=== PATIENT | female | born 1940 | race Caucasian/White ===

== ENCOUNTER 2022-08-11 17:46 | Outpatient (CLI) | payer SELFPAY ==
--- OUTSIDE RECORDS SUMMARY | 2022-08-11 09:30 | XMS_ITS | Clinical Summary ---
:1940 Author Organization [facility] [place] [address] Care Team Providers Name Role Phone Jackelin Morales Unavailable Leda Anderson MD Primary Care Provider [phone] Allergies Active Allergy Reactions Severity Noted Date Comments Aspirin Anaphylaxis 11/17/2006 Age 27, sounds like she got flushed , red rash, difficult y breathing Azithromycin Nausea And Vomiting, 02/17/2011 Dizziness Clindamycin Nausea Only, Dizziness 02/17/2011 Fd And C No.5 11/17/2006 Blue food dye (Tartrazine) Iodinated Contrast Other - Describe In 03/12/2009 Un known. Media Comment Field Medications Medication Sig Dispensed Refills Start Date End Date Status Calcium Carbonate 1,000 Take 1 tablet by 0 1 Active mg tablet mouth once daily. simvastatin (ZOCOR) 20 Take 20 mg by 3 05/05/2018 Active mg tablet mouth at bedtime. cholecalciferol (VITAMIN Take 1 capsule 0 08/19/2010 Active D3) 5,000 unit capsule by mouth. FLAXSEED OIL ORAL Take by mouth. 0 06/18/2014 Active calcium/magnesium/zinc Take 1 tablet by 0 07/25/2014 Active ([id number] mouth. ) 333-133-5 mg tablet irbesartan (AVAPRO) 150 Take 1 Tablet 0 05/27/2022 Active mg tablet (150 mg) by mouth once daily. if BP is over 140. 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 50mg-850mg take twice daily. clopidogreL (Plavix) 75 Take 1 Tablet 0 05/27/2022 Active mg tablet (75 mg) by mouth once daily. metFORMIN (GLUCOPHAGE) Take 500 mg by 0 06/17/2022 Active 500 mg tablet mouth two times daily with meals. Active Problems Problem Noted Date Adenomatous polyp of sigmoid colon 07/23/2020 Overview: Colonoscopy 06/2020 large polyp, repeat in 6 months PVC (premature ventricular contraction) 03/11/2017 Impaired fasting glucose 11/23/2012 ACP (advance care planning) 10/08/2011 Overview: Formatting of this note is dif ferent from the original. Patient has identified Health Care Agent (s): Yes Add Health Care Agents: Yes Health Care Agent(s): Primary Health Care Agent: Jaison turner Relationship: Son Secondary Health Care Agent:Shea Rubio kathy Relationship: daughter (c) Conservator: Relationship: Phone: Guardian: Relationship: Phone: Patient has Advance Care Plan Documents (Health Care Directive, POLST): Yes Advance Care Plan Documents: Health Care Directive Patient has identified Specific Treatmen t Preferences: No Specific limits to treatment preferences NOT identified: ASSUME FULL TREATMENT. Last Assessment & Plan: Advance Care Planning: Basic Interview S ession Advance Care Planning discussion complet ed with [employer] Topher Del Castillo and her Health Care Agent and son, Jaison Del Castillo on 10/08/2011 at [facility]. Patient and family provided with: Janes johnson Care Planning Discussion Guide, a second copy of a Health Care Directive and booklet, Hard Choices for [place] People, for their review. Goals and Values: Patient/family identified factors that m ay influence treatment preferences: ?? Personal values and goals: Very stron g bahai beliefs and need to allow God's will,God gives me strength and I am very blessed. ?? Quality of life: Has had two separate bouts of serious illness: one with breast cancer in 2006 and lymphoma in 2009, received treatments, recovered quickly and returned to previous level of function. Did state would not want to have prolon ged medical interventions if not able to recover. ?? Worries and fears about health care; Does not believe in documenting specific wishes, can't preplan God's plan. She states she does discuss her wishes with her family as needs arises. Treatment Choices: If Theandrew were suddenly injured and h er chances of recovery were 5 out of 100, she WOULD NOT want ongoing life-prolonging treatments such as a ventilator/respirator, feeding tube, etc., RETIREMENT. Was unable to define a timeline for a li mited trial, needs to discuss with her family further. Reviewed CPR fact sheet with [employer]. If she had a sudden event that caused her heart and breathing to stop she was UNDECIDED if she would want CPR attempted. Discussed importance of identifying what end of life care she would want if unable to communicate her wishes, because aggressive medical interventions would be implemented, if her wishes were not documented and health care agents not available. Documents Completed During Advance Care Planning Session: Health Care Agents identified. Completed the Health Care Directive, without any specific treatments preferences except to identify her health care agents. Recommendations/Plan: Theandrew was encouraged to continue adv ance care planning discussions, complete a health care directive and schedule a return appointment with plexiglas former to review her advance care plan. Theandrew and her health care agent to r dbw Health Care Directive with her provider at the next office visit. Interviewer: Adri Sepulveda, RN 012 Vitamin D deficiency 03/15/2009 Exostosis of unspecified site 02/01/2007 Personal history of malignant neoplasm of breast 11/17 Overview: right breast cancer ductal in situ . Pt had lumpectomy Osteoporosis, unspecified 11/17/2006 Premature menopause 11/17/2006 Calculus of kidney 11/17/2006 Overview: 1993 Follicular lymphoma Overview: skin biopsy Encounters Date Type Specialty Care Team Description 07/03/2022 Office Visit Ronald Nichols CV Lisa ctrophysiology New (Ref MD from [facility] (P VC's). Pt states no curre nt symptoms. Questions rhys rning stroke in February) 07/03/2022 Travel 05/27/2022 Office Visit Byron Short Other (O ffice Visit[facility]P- Wilma Anderson MD) 05/27/2022 Travel 05/12/2022 Telephone Ronald Nichols ret'd call from kim JOHN from Last 3 Months Immunizations Name Administration Dates Next Due AMB Influenza, IIV3 (Age >=3 06/15/2013, 07/06/2012, 008 years)(Flu Clinic Only) Influenza RIV4 (Age 18+ Years) 08/02/2019 PRESERV FREE Influenza, High-dose Inactivated 06/22/2018, 06/25/2017, 07/2016, 06/07/2015 Influenza, High-dose Quadrivalent 07/29/2021 Inactivated Influenza, IIV3 (Age >=3 years) 06/05/2011, 07/09/2010, 05/28, 07/21/2007, 08/11/2006 Influenza, ccIIV3 (Age >=18 Years) 07/05/2014 Pneumococcal Poly,23-Valent 01/25/2007 (Pneumovax) Pneumococcal conj 13-Valent (Prevnar 03/09/2016 13) Tdap 03/09/2016, 03/04/2006 Family History Medical History Relation Name Comments Heart Disease Brother 5 Hypertension Brother 6 Stroke Brother 7 Cancer Father lymphoma? Cancer-breast Maternal Aunt Hypertension Mother Relation Name Status Comments Brother 1 [place] Brother 2 stroke Brother 3 Alive Brother 4 Alive Brother 5 Brother 6 Brother 7 Father Maternal Aunt Mother Sister 1 [place] Sister 2 Alive Sister 3 Alive Sister 4 Alive Social History Tobacco Use Types Packs/Day Years Used Date Never Smoker Smokeless Tobacco: Never Used Tobacco Cessation: Counseling Given: Yes Alcohol Use Standard Drinks/Week Comments Not Currently 0 (1 standard drink = 0.6 oz pure alcoho l) Sex Assigned at Date Recorded Not on file Obstetrics History Last Filed Vital Signs Vital Sign Reading Time Taken Comments Blood Pressure 122/70 07/03/2022 9:07 AM CDT Pulse 38 07/03/2022 9:07 AM CDT Temperature 36.9 ??C (98.4 ??F) 07/18/2018 3:30 PM CDT Respiratory Rate 16 06/21/2020 11:53 AM CDT Oxygen Saturation 98% 07/03/2022 9:07 AM CDT Inhaled Oxygen Concentration - - Weight 62.4 kg (137 lb 8 oz) 07/03/2022 9:07 AM CDT Height 152 cm (4' 11.84) 07/03/2022 9:07 AM CDT Body Mass Index 26.99 07/03/2022 9:07 AM CDT Plan of Treatment Health Maintenance Due Date Last Done Comments COVID-19 vaccine series (#1) 05/29/1941 Depression screening for age 12+ 1952 Zoster (shingles) series for age 0311/27/1959 50+ (1 of 2) Medicare Wellness for age 65+ 06/26/2014 06/26/2013, 2011, 02/17/2011 Influenza for age 65+ 05/28/2022 07/29/2021, 08/02/2019, 06/22/2018, Additional history exists BMI (ht and wt on same day) for 07/03/2023 07/03/2022, 08/09/2021, age 18+ 02/15/2019, Additional history exists Tetanus booster 03/09/2026 03/09/2016, 03/04/2006 DEXA/DXA scan for age 65+ Completed 06/29/2013, 03/01/2012 , 02/27/2011, Additional history exists Pneumococcal series for age 65+ Completed 03/09/2016, 09/2006 Tdap Completed 03/09/2016, 03/04/2006 Procedures Procedure Name Priority Date/Time Associated Diagnosis Comme nts EKG 12 LEAD Routine 05/27/2022 11:01 AM PVC (premature Result s for this CDT ventricular procedure are i n contraction) the results section. from Last 3 Months Results EKG 12 LEAD (05/27/2022 11:01 AM CDT) Component Value Ref Range Test Analysis Performed Pathologis t Method Time At Signature Interpretation Junctional rhythm with frequent Premature ventri cular complexes Abnormal ECG Ventricular Rate 64 BPM Atrial Rate 35 BPM P-R Interval 136 ms QRS Duration 102 ms QT 406 ms QTc 418 ms P [place] 78 degrees R [place] 5 degrees T [place] 20 degrees Specimen Anatomical Collection Method Collection Time Receive d Time (Source) Location / / Volume Laterality 05/27/2022 11:05/27/2022 8:16 AM CDT PM CDT Byron Short MD EKG ORD from Last 3 Months Insurance Payer Benefit Plan / Subscriber ID Effective Dates Phone Addre ss Type Group MEDICARE PART B MEDICARE PART B [id number] 2005-Presen ATTN: CLAIMS - HB USE ONLY HB ONLY t [address] [place] [address] [place] BLUE [place]OSS [id number] 2016-Presen [address] [address] [place] [id number] [place]UE [place]OSS BLUE CROSS [id number] 2016-[place] [address] [address] [place] [id number] [phone] (Work) Advance Directives Documents on File Type Date Recorded Patient Epic Beacon Analyst Explanati on Healthcare Directive 12/03/2011 ACP Care Teams Mat Linker Relationship Specialty Start Date End Date Leda Anderson MD PCP - General Family Practice 06/13/201999 [place] [address] Jackelin Morales Internal Medicine 03/01/12 [address] [place] [address]
--- OUTSIDE RECORDS SUMMARY | 2022-08-11 09:31 | XMS_ITS | Encounter Summary ---
:1940 Demographics Address [address] [place] [address] Mobile Phone Home Phone Preferred Language ENG Marital Status Christianity Affiliation Unknown Race White Ethnic Group Not or Author Organization [facility] Address [address] [place] [address] Care Team Providers Name Role Phone Unavailable Primary Care Provider Unavailable Reason for Visit Reason Comments Results I called and left a message for her son about the MRI results. Encounter Details Date Type Department Care Team Description 07/30/2022 Clinical Communication Department of Sleep Sae Barron (I called Medicine in [place], and left a mess karina Michael, M.P.H. for her son about [place] [address] the MRI results.) [address] [place] [id number] Social History Tobacco Use Types Packs/Day Years Used Date Smoking Tobacco: Never Smokeless Tobacco: Never Sex Assigned at Date Recorded Not on file documented as of this encounter Plan of Treatment Upcoming Encounters Date Type Specialty Care Team Description 09/16/2022 Office Visit Neurology Sae Barron M.D., M.P.H. [address] [place], [place] [phone] (Wo rk) documented as of this encounter Visit Diagnoses Not on filedocumented in this encounter
--- OUTSIDE RECORDS SUMMARY | 2022-08-11 09:31 | XMS_ITS | Encounter Summary ---
:1940 Demographics Address [address] [place] [address] Mobile Phone Home Phone Preferred Language ENG Marital Status Moravian Affiliation Unknown Race White Ethnic Group Not or Author Organization [facility] Address [address] [place] [address] Care Team Providers Name Role Phone Unavailable Primary Care Provider Unavailable Encounter Details Date Type Department Care Team Description 03/23/2019 Ancillary Procedure Department of Dermatology Social History Tobacco Use Types Packs/Day Years Used Date Smoking Tobacco: Never Sex Assigned at Date Recorded Not on file documented as of this encounter Plan of Treatment Upcoming Encounters Date Type Specialty Care Team Description 09/16/2022 Office Visit Neurology Sae Barron M.D., M.P.H. [address] [place] [phone] (Wo rk) documented as of this encounter Procedures Procedure Name Priority Date/Time Associated Comments Diagnosis DERMATOLOGY IMAGE Routine 03/23/2019 12:00 Result s for this EXAM PM CDT procedure are i n the results section. documented in this encounter Results chest, left upper 203-Dermatology Image Exam (03/23/2019 12:00 PM CDT) Specimen (Source) Anatomical Collection Method Collection Time Re ceived Time Location / / Volume Laterality 03/23/2019 12:00 PM CDT Narrative [facility] - 03/23/2019 3:20 PM CDT This order has been created and auto-finalized to support the import of images acquired without order. The clini khanh documentation to support these images can be found on the encounter rosa maria t produced images. Provider Not In System IMG NON RAD IMAGING PROCEDUR ES Performing Organization Address City/State/ZIP Code Phon e Number [facility] NA documented in this encounter Visit Diagnoses Not on filedocumented in this encounter
--- OUTSIDE RECORDS SUMMARY | 2022-08-11 09:31 | XMS_ITS | Encounter Summary ---
:1940 Demographics Address [address] [place] [address] Mobile Phone Home Phone Preferred Language ENG Marital Status Mormon Affiliation Unknown Race White Ethnic Group Not or Author Organization [facility] Address [address] [place] [address] Care Team Providers Name Role Phone Unavailable Primary Care Provider Unavailable Encounter Details Date Type Department Care Team Description 07/08/2018 Abstract DATA ABSTRACTION Provider, Historical Social History Tobacco Use Types Packs/Day Years Used Date Smoking Tobacco: Never Sex Assigned at Date Recorded Not on file documented as of this encounter Plan of Treatment Upcoming Encounters Date Type Specialty Care Team Description 09/16/2022 Office Visit Neurology Sae Barron M.D., M.P.H. [address] [phone] (Wo rk) documented as of this encounter Visit Diagnoses Not on filedocumented in this encounter
--- OUTSIDE RECORDS SUMMARY | 2022-08-11 09:31 | XMS_ITS | Encounter Summary ---
:1940 Demographics Address [address] [place] [address] Mobile Phone Home Phone Preferred Language ENG Marital Status Synagogue Affiliation Unknown Race White Ethnic Group Not or Author Organization [facility] Address [address] [place] [address] Care Team Providers Name Role Phone Unavailable Primary Care Provider Unavailable Reason for Visit Appointment Request (Routine) - Closed Specialty Diagnoses / Procedures Referred By Contact Refer red To Contact Dermatology Referral ID Status Reason Start Date Expiration Date Visits Requ ested Visits Authorized [id number] Closed 02/21/2019 02/21/2020 1 Encounter Details Date Type Department Care Team Description 03/23/2019 Comprehensive Visit Department of Robin Murillo Follicle Dermatology in Rodriguez Mallory M.D., [place], [place] Ph.D. Unspecified Site [address] [place] [address] ([facility]) (Primary Dx) [place] [address] Social History Tobacco Use Types Packs/Day Years Used Date Smoking Tobacco: Never Sex Assigned at Date Recorded Not on file documented as of this encounter Consult Notes Rodriguez Murillo M.D., Ph.D. - 03/23/2019 8:40 AM CDT Patient is a delightful 78-year-old woman initially from [place] who in 1998 has had breast cancer which was treated with lumpectomy followed by mastectomy and radiation as well as chemotherapy. Dr. 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 I do not see that shehas seen Hematology nor has she had a PET scan. Examination of her skin today shows a large cauliflower like lesion and a blue nevus. I am concernedthat this large hemangioma could be a hemorrhagic lymphoma. This lesion was excised today. Blue nevus on the left shoulder was shave biopsied as well. After the pathology is back depending on the biopsy and PET scan I will ask the backup operator to weigh on this by An econsult. I informed the patient that I will do that and I will communicate with her hopefully before she leaves to [facility] on the 05 of April documented in this encounter Plan of Treatment Upcoming Encounters Date Type Specialty Care Team Description 09/16/2022 Office Visit Neurology Sae Barron M.D., M.P.H. [address] [place], [place] [phone] (Wo rk) Scheduled Orders Name Type Priority Associated Diagnoses Order S chedule JOSÉ LUIS Excision 1-2 Dermatology Routine Cutaneous Follicle Expec maris: 03/23/2019 sites Center Lymphoma (Approximate ), Unspecified Site (HCC) Expir es: 03/23/2022 documented as of this encounter Results PET CT Skull to Thigh FDG (03/23/2019 2:09 PM CDT) Anatomical Region Laterality Modality Body, Nuclear Medicine PET RST LOS, PET N/A Positron Emission Tomography (PET) ARZ LOS, Nuclear Medicine PET FLA LOS Specimen (Source) Anatomical Collection Method Collection Time Re ceived Time Location / / Volume Laterality 03/23/2019 4:07 PM CDT Impressions 03/23/2019 4:19 PM CDT No definite evidence of relapsed lymphoma. Narrative 03/23/2019 4:19 PM CDT EXAM: ??PET CT SKULL TO THIGH FDG Finger stick glucose level at the time o f the PET scan injection was 102 mg/dL. Patient followed standard dietary/fastin g requirements for this exam. RADIOPHARMACEUTICAL/MEDS: Route: intravenous fludeoxyglucose F 18 injection SNF (FDG F-18),9.9 millicurie TECHNIQUE: ??F-18 FDG PET/CT scan was pe rformed from the orbits through the thighs with CT fusion imaging for attenu ation correction and anatomic coregistration only, with imaging beginn ing at approximately 60 minutes after radiotracer injection. ?? COMPARISON: ??02/02/2011 PET/CT. 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 New lesions in the upper back and chest concerning for recurrent lymphoma. Subsequent treatment strategy. FINDINGS: ??Since 02/02/2011, the mildly F DG avid dermal lesion in the right anterior abdomen is no longer present. N o evidence of cutaneous lymphoma on today's exam. Specifically, there are no areas of focal activity in the left chest or upper back to correlate with th e recently biopsied lesions. There is unchanged minimal activity associated wi th exophytic cutaneous lesions within the anterolateral left upper abdomen (ax ial CT images 154 and 159), which are unchanged dating back to 02/02/2011, and s hould be benign. There is normal FDG activity in the live r, spleen, and bone marrow. New low-grade activity within two small left hilar lymph nodes should be reactive/inflammatory. Synovitis both gl enohumeral joints. Inflammatory activity about the anterior aspect of the L4-L5 d isc space. The FDG activity is otherwise normal. Significant incidental findings on the l ow-dose unenhanced CT fusion images: Right mastectomy and right axillary lymp h node dissection. Hepatic granuloma. Colonic diverticulosis. Procedure Note Huan Bocanegra M.D. - 03/23/2019Form atting of this note might be different from the original. EXAM: PET CT SKULL TO THIGH FDG Finger stick glucose level at the time o f the PET scan injection was 102 mg/dL. Patient followed standard dietary/fastin g requirements for this exam. RADIOPHARMACEUTICAL/MEDS: Route: intravenous fludeoxyglucose F 18 injection SNF (FDG F-18),9.9 millicurie TECHNIQUE: F-18 FDG PET/CT scan was perf ormed from the orbits through the thighs with CT fusion imaging for attenu ation correction and anatomic coregistration only, with imaging beginn ing at approximately 60 minutes after radiotracer injection. COMPARISON: 02/02/2011 PET/CT. INDICATION: Follicular lymphoma involvin g multiple cutaneous sites the trunk, status post surgical resection and radia tion. New lesions in the upper back and chest concerning for recurrent lymphoma. Subsequent treatment strategy. FINDINGS: Since 02/02/2011, the mildly FDG avid dermal lesion in the right anterior abdomen is no longer present. N o evidence of cutaneous lymphoma on today's exam. Specifically, there are no areas of focal activity in the left chest or upper back to correlate with th e recently biopsied lesions. There is unchanged minimal activity associated wi th exophytic cutaneous lesions within the anterolateral left upper abdomen (ax ial CT images 154 and 159), which are unchanged dating back to 02/02/2011, and s hould be benign. There is normal FDG activity in the live r, spleen, and bone marrow. New low-grade activity within two small left hilar lymph nodes should be reactive/inflammatory. Synovitis both gl enohumeral joints. Inflammatory activity about the anterior aspect of the L4-L5 d isc space. The FDG activity is otherwise normal. Significant incidental findings on the l ow-dose unenhanced CT fusion images: Right mastectomy and right axillary lymp h node dissection. Hepatic granuloma. Colonic diverticulosis. IMPRESSION: No definite evidence of relapsed lymphom a. Rodriguez Murillo M.D., Ph.D. 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
--- OUTSIDE RECORDS SUMMARY | 2022-08-11 09:31 | XMS_ITS | Encounter Summary ---
:1940 Demographics Address [address] [place] [address] Mobile Phone Home Phone Preferred Language ENG Marital Status Mandaeism Affiliation Unknown Race White Ethnic Group Not or Author Organization [facility] Address [address] [place] [address] Care Team Providers Name Role Phone Unavailable Primary Care Provider Unavailable Encounter Details Date Type Department Care Team Description 03/23/2019 Procedure visit Department of Lidia Wade M.D . Tumor Skin Uncertain Behavior (Primary D x); Dermatology in [address]; [place], [place] Cutaneous Follicle Center Lymphoma Unspe cified Site (HCC) [address] [place] [phone] Social History Tobacco Use Types Packs/Day Years Used Date Smoking Tobacco: Never Sex Assigned at Date Recorded Not on file documented as of this encounter Last Filed Vital Signs Vital Sign Reading Time Taken Comments Blood Pressure 154/81 03/23/2019 10:00 AM CDT Pulse 57 03/23/2019 10:00 AM CDT Temperature - - Respiratory Rate - - Oxygen Saturation - - Inhaled Oxygen Concentration - - Weight - - Height - - Body Mass Index - - documented in this encounter Procedure Notes Lidia Wade M.D. - 03/23/2019 10:00 AM CDT PREOP INDICATION: REMOVAL. Date of Surgery: 03/23/2019 Surgeon: Dr. Rios Everett M.D. Transformer Shop Supervisor: Dr. Lidia Wade M.D. Location: [facility] [place] [facility]: Floor:16 Room:[facility] Visit Type: Outpatient PostOp Diagnosis: Tumor of the skin of uncertain behavior Anatomic Location: Right lateral back Preoperative size: 0.9 x 0.9 cm with circumferential margins of 2 mm for a total excision diameter of 1.3 x 1.3 cm. Procedure: Excision with intermediate layered closure Prior to the procedure, final verification of the patient identity and correct marked surgical site was performed. Procedural pause conducted to verify: correct patient identity, procedure to be performed and as applicable, correct side and site, correct patient position, and availability of implants, special equipment or special requirements. INFORMED CONSENT Discussed the risks, benefits, alternatives, and the necessity of other members of the healthcare team participating in the procedure. All questions answered and consent given. PATIENT EDUCATION Ready to learn, no apparent learning barriers were identified; learning preferences include listening. Explained diagnosis and treatment plan; patient expressed understanding of the content. Preoperative medications: None Anesthesia used was 1% lidocaine with 1:200,000 epinephrine. The skin was prepped in a sterile fashion with Hibiclens. The lesion was excised with 2-mm clinically tumor-free margins in a fusiform fashion through the skin and through the subcutaneous tissue. The wound edges were undermined as needed, and hemostasis was obtained with electrocoagulation. Due to wound size, the wound edges were closed in an intermediate layered fashion with 3-0 Vicryl and 4-0 Monocryl subcutaneous sutures and 4-0 nylon skin sutures. Postoperative length: 5.0 cm. Estimated blood loss: Minimal. Complications: None. Wound care: Routine. Specimen sent to Dermatopathology. B iopsy report is pending. Postoperative medications: None documented in this encounter Consult Notes Lidia Wade M.D. - 03/23/2019 10:00 AM CDT DERMATOLOGY NOTE Supervised by: Dr. Rios Everett ([phone]). Patient seen and discussed with supervising weight loss consultant, Dr. Everett, who evaluated the patient and concurs with the assessment and plan. REFERRAL Rodriguez Murillo M.D., Ph.D. CHIEF COMPLAINT Lesion on back HISTORY OF PRESENT ILLNESS Theologia Pepe Del Castillo is a pleasant 78 y.o. female with a history of cutaneous follicular center lymphoma who comes in to procedure clinic for excisional biopsy of a new exophytic lesion on the rightlateral back as well as a punch biopsy of a blue nevus on the left shoulder. The patient was recently seen by Dr. Murillo in clinic who sent her over to procedure clinic today for the above-mentionedbiopsies. The dermatologic surgery preoperative information sheet was reviewed. In addition to her cutaneous follicular center lymphoma, the patient has history of breast cancer and high blood pressure, controlled with medications. The patient denies history of heart disease, pacemaker, defibrillator, lung disease, liver disease, stroke, infectious diseases (including hepatitis B, hepatitis C, or HIV), diabetes, organ transplant, bleeding or healing problems. The patient denies artificial joints or other implants. Daily aspirin: None Anticoagulation: None Tobacco use: None Alcohol use: None PHYSICAL EXAM Vitals: BP 154/81, HR 522 General: Awake, alert, in no acute distress, and with appropriate affect. Skin: A limited skin examination was performed per patient preference. Involving the right lateral back, there is a purple/red exophytic papule measuring 0.9 x 0.9 cm in size. It appears to be vascularunder dermoscopy. Involving the left anterior shoulder there is a blue-landrum papule resembling a bluenevus. 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 We discussed risks and benefits of the procedure including scar, pain, bleeding, infection, recurrence, activity limitations. Patient wished to proceed. 2 mm margins were used.The patient tolerated the procedure well. Please see the operative note for further detail. Rodriguez Murillo M.D., Ph.D. will be in contact with the patient with the pathology results. PROCEDURAL PAUSE Procedural pause conducted to verify: correct patient identity, procedure to be performed, and as applicable, correct side and site, correct patient position, and availability of implants, special equipment, or special requirements. PATIENT EDUCATION Ready to learn. No apparent learning barriers were identified. Learning preferences include listening. Explained diagnosis and treatment plan; patient/guardian of patient expressed understanding of thecontent. #2 Blue nevus, left anterior shoulder Punch biopsy was performed to rule out blue nevus versus melanoma versus other. CONSENT Discussed the risks, benefits, alternatives, and the necessity of other members of the healthcare team participating in the procedure. All questions answered and consent given. UNIVERSAL PROTOCOL Procedural pause conducted to verify: correct patient identity, procedure to be performed, and as applicable, correct side and site, correct patient position, and availability of implants, special equipment, or special requirements. PROCEDURE INFORMATION Punch biopsy. We explained the potential diagnosis and recommended that we obtain a biopsy. The risks and benefitsof the procedure were discussed, and the patient consented to these procedures. Using 1% lidocaine with epinephrine for local anesthesia, a 6-mm punch biopsy was obtained from the left shoulder. Biopsysubmitted to Dermatopathology. Biopsy site closed with a top layer of 4-0 Nylon. The skin sutures need to be removed in 7-10 days. Dressing was applied, and wound care instructions were explained. Biopsy results and any further recommendations will be communicated to the patient by letter. Patient given pamphlet [id number]. INFORMED CONSENT Discussed the risks, benefits, alternatives, and the necessity of other members of the healthcare team participating in the procedure. All questions answered and consent given. Associated attestation - Rios Everett M.D. - 03/23/2019 4:37 PM CDT I saw and evaluated the patient, participating in the shah elements of the service. I discussed the findings, assessment and plan with the resident and agree with resident???s findings and plan as documented in the resident's note. I was immediately available for the entirety of the procedure(s) and present for the shah and critical portions. Ms. Del Castillo has history of lymphoma. She has an exophytic plaque, that is most consistent with an angioma on dermatoscopy, but given her history, an excision was performed, vertically given the largersize. A dark blue smaller macule is likely a blue nevus, was also sampled with a punch instrument asa precaution, to investigate for the possibility of melanoma or atypical features of a blue nevus. Pathology is pending at this time and if unexpected findings are discovered then additional action maybe indicated. Additional details may be found separate notes of Dr. Wade. documented in this encounter Plan of Treatment Upcoming Encounters Date Type Specialty Care Team Description 09/16/2022 Office Visit Neurology Sae Barron M.D., M.P.H. [address] [phone] (Wo rk) documented as of this encounter Procedures Procedure Name Priority Date/Time Associated Diagnosis Comme nts DERMATOPATHOLOGY Routine 03/23/2019 10:08 AM Cutaneous Follicl e Results for this CDT Center Lymphoma procedure ar e in Unspecified Site the results (HCC) section. documented in this encounter Results Dermatopathology (03/23/2019 10:08 AM CDT) Component Value Ref Test Analysis Performed At [facility] Range Method Time Signature Gross Description A: A. ??Received in formalin labeled with the pat ient's 03/28/2019 name, medical record number, and left shoulder is a 0.7 5:18 PM CDT cm in diameter lucero-white skin punch biopsy, excised to a depth of 0.6 cm. ??There is a 0.3 x 0.3 cm pale lucero skaggs pigmented lesion centrally located on the skin surface. Specimen is bisected and submitted entirely in cassette A1. Grossed by JSoni. B: ??B. Received in formalin labeled with the patient's name, medical record number and designated as right lateral back, is a 3.8 x 1.6 cm lucero-white, elliptical portion of skin which is excised to depth of 0.9 cm. ??The skin surface displays a 1 x 0.7 cm black-blue raised lesion which measures 0.4 cm from the nearest radial margin. ??The specimen is inked, serially sectioned and entirely submitted for permanent sections. ??Gross by [id number]. B1: ??Tips B2-B3: ??Remaining cross-sections Report Dina Rai 03/28/2019 electronically Nakul Arnold 5:18 PM CDT signed by 03/28/2019 5:18 PM CDT Interpretation FINAL DIAGNOSIS 03/28/2019 A. ??Left shoulder, Skin punch biopsy: ??Angioma 5:18 PM CDT B. ??Right lateral back, Skin excision: ??Angioma Specimen (Source) Anatomical Collection Method Collection Time Re ceived Time Location / / Volume Laterality Skin (Left 03/23/2019 10:08 shoulder) AM CDT Skin (Right 03/23/2019 10:09 lateral back) AM CDT Narrative This result has an attachment that is no t available. Rodriguez Murillo M.D., Ph.D. LAB PATH DERM ORDERABLES Performing Organization Address City/State/ZIP Code Phon e Number [facility] - [address] [place], [place] [address] [facility] documented in this encounter Visit Diagnoses Diagnosis Tumor Skin Uncertain Behavior - Primary Nevus Blue Cutaneous Follicle Center Lymphoma Unspe cified Site (HCC) documented in this encounter
--- OUTSIDE RECORDS SUMMARY | 2022-08-11 09:31 | XMS_ITS | Encounter Summary ---
:1940 Demographics Address [address] [place] [address] Mobile Phone Home Phone Preferred Language ENG Marital Status Quaker Affiliation Unknown Race White Ethnic Group Not or Author Organization [facility] Address [address] [place] [address] Care Team Providers Name Role Phone Unavailable Primary Care Provider Unavailable Reason for Visit Reason Comments Referral Encounter Details Date Type Department Care Team Description 07/10/2022 Clinical Communication Department of Neurology Sae Barron, Referral in [facility] roberto Bethea, M.P.H. [address] [place] [address] [address] [phone] Social History Tobacco Use Types Packs/Day Years Used Date Smoking Tobacco: Never Smokeless Tobacco: Never Sex Assigned at Date Recorded Not on file documented as of this encounter Miscellaneous Notes Telephone Encounter - Kiera Mello L.PBillN. - 07/14/2022 4:24 PM CDT Patient has been scheduled for Wednesday07/20/22. Telephone Encounter - Kiera Mello L.P.N. - 07/14/2022 9:31 AM CDT RAYUS Form for MRI Brain completed and faxed to fax number [phone]. Telephone Encounter - Kiera Mello L.P.N. - 07/13/2022 1:42 PM CDT Call placed to [facility] for Radiology MRI form. Will fax to [facility]. Telephone Encounter - Margaret Anderson - 07/10/2022 3:56 PM CDT Patient was referred to [facility] for an MRI. Patient is requesting an open MRI and would like a referral to [facility] in [place]. Can you call patient? Thanks. documented in this encounter Plan of Treatment Upcoming Encounters Date Type Specialty Care Team Description 09/16/2022 Office Visit Neurology Sae Barron M.D., M.P.H. [address] [phone] (Wo rk) documented as of this encounter Visit Diagnoses Not on filedocumented in this encounter
--- OUTSIDE RECORDS SUMMARY | 2022-08-11 09:31 | XMS_ITS | Encounter Summary ---
:1940 Demographics Address [address] [place] [address] Mobile Phone Home Phone Preferred Language ENG Marital Status Baptism Affiliation Unknown Race White Ethnic Group Not or Author Organization [facility] Address [address] [place] [address] Care Team Providers Name Role Phone Unavailable Primary Care Provider Unavailable Reason for Referral Outpatient (Routine) - Closed Specialty Diagnoses / Procedures Referred By Contact Refer red To Contact Dermatology Medhat Nunez M.D. [facility] Referral ID Status Reason Start Date Expiration Date Visits Requ ested Visits Authorized [id number] Closed 01/14/2018 07/13/2018 1 1 Encounter Details Date Type Department Care Team Description 01/14/2018 Orders Only Department of Dermatology Latha Nunez, in [facility] roberto Bethea [address] [place] [address] Social History Tobacco Use Types Packs/Day Years Used Date Smoking Tobacco: Never Sex Assigned at Date Recorded Not on file documented as of this encounter Plan of Treatment Upcoming Encounters Date Type Specialty Care Team Description 09/16/2022 Office Visit Neurology Sae Barron M.D., M.P.H. [address] [place] [phone] (Wo rk) Scheduled Referrals Name Type Priority Associated Order Schedule Diagnoses Dermatology office Outpatient Referral Routine Ex pected: visit (clinic) 05/31/2018 (Approximate), Expires: 01/14/2021 documented as of this encounter Visit Diagnoses Not on filedocumented in this encounter
--- OUTSIDE RECORDS SUMMARY | 2022-08-11 09:31 | XMS_ITS | Encounter Summary ---
:1940 Demographics Address [address] [place] [address] Mobile Phone Home Phone Preferred Language ENG Marital Status Amish Affiliation Unknown Race White Ethnic Group Not or Author Organization [facility] Address [address] [place] [address] Care Team Providers Name Role Phone Unavailable Primary Care Provider Unavailable Reason for Referral Outpatient (Routine) - Closed Specialty Diagnoses / Procedures Referred By Contact Refer red To Contact Diagnoses Stroke Cerebrovascular Accident Personal History [facility]., [facility] [place] [facility] Procedures US Carotid Bilateral M.P.H. [address] [place] [address] Referral ID Status Reason Start Date Expiration Date Visits Requ ested Visits Authorized [id number] Closed 05/28/2022 05/28/2023 1 1 Reason for Visit Outpatient (Routine) - Closed Specialty Diagnoses / Procedures Referred By Contact Refer red To Contact Diagnoses Stroke Cerebrovascular Accident Personal History Sae Barron M.D., [facility] [place] Procedures US Carotid Bilateral M.P.H. [address] [place] [phone] Referral ID Status Reason Start Date Expiration Date Visits Requ ested Visits Authorized [id number] Closed 05/28/2022 05/28/2023 1 1 Encounter Details Date Type Department Care Team Description 06/15/2022 Hospital Encounter Department of Sae Barron Stroke C erebrovascular Radiology in [place] Bon[place], Accident Person caitlyn Michael M.P.H. History [place] [address] [place] [address] [place] [phone] Social History Tobacco Use Types Packs/Day Years Used Date Smoking Tobacco: Never Smokeless Tobacco: Never Sex Assigned at Date Recorded Not on file documented as of this encounter Medications at Time of Discharge Medication Sig Dispensed Refills Start Date End Date calcium carbonate-mag Chew 1 tablet daily. 0 04/2011 hydroxid 1,000-200 mg tablet,chewable [id number]-jwzm Take 1 tablet by 0 014 333-133-5 mg tablet mouth daily. Calcium magnesium - zinc 1000 mg- 500 mg-25 mg daily. cholecalciferol (VITAMIN Take 1 capsule by 0 07/29 D3) 5,000 Unit capsule mouth once a week. clopidogreL (PLAVIX) 75 mg Take 75 mg by mouth 0 05/27/2022 tablet daily. Contour Next Test Strips TEST 2 TO 3 TIMES A 0 strips DAY FLAXSEED OIL ORAL Take by mouth daily. 0 06/18/20 14 Flaxseed oil cap p.o. daily FLAXSEED OIL ORAL Take by mouth. 0 06/18/2014 hydrocortisone (HYTONE) Apply 1 application 0 2.5 % cream topically 2 (two) times a day. irbesartan (AVAPRO) 150 mg Take 150 mg by mouth 0 05/27/2022 tablet daily. simvastatin (ZOCOR) 20 mg Take 1 tablet by 0 11/27 tablet mouth daily. UNABLE TO FIND Med Name: Janumet 50 0 mg- 850 mg two times a day. documented as of this encounter Plan of Treatment Upcoming Encounters Date Type Specialty Care Team Description 09/16/2022 Office Visit Neurology Sae Barron M.D., M[facility]P.H[facility] [address] [facility] [place] [phone] (Wo rk) documented as of this encounter Procedures Procedure Name Priority Date/Time Associated Diagnosis Comme [facility] US CAROTID RAD - Routine 06/15/2022 2:55 Stroke Results for BILATERAL (most inpatients PM CDT Cerebrovascular this pro cedure and all Accident Personal are in the outpatients) History results section. documented in this encounter Results US Carotid Bilateral (06/15/2022 2:55 PM CDT) Anatomical Region Laterality Modality Head and Neck, Ultrasound RST LOS, Ultrasound ARZ LOS, Bilat eral Ultrasound Neuroradiology FLA LOS Specimen (Source) Anatomical Collection Method Collection Time Re ceived Time Location / / Volume Laterality 06/15/2022 3:56 PM CDT Impressions 06/15/2022 4:01 PM CDT 1. No significant carotid artery stenosis. 2. The right vertebral artery is not nathen ntified, which might be related to technique, vessel's hypoplasia, or occlusion. Narrative 06/15/2022 4:01 PM CDT EXAM: US CAROTID BILATERAL Exam performed with color and spectral D oppler analysis. COMPARISON: None. FINDINGS: RIGHT: Very minimal atheromatous plaque in the carotid bifurcation. Doppler evaluation shows no evidence of significant ICA, ECA, or CCA stenosis. The right vertebral artery is not identified. LEFT: Very minimal atheromatous plaque i n the carotid bifurcation. Doppler evaluation shows no evidence of significant ICA, ECA, or CCA stenosis. Normal flow direction in the vertebral artery. VELOCITIES (cm/sec) Right CCA *psv: ??50 cm/s Right ICA psv: 43 cm/s Right ICA edv: 9 cm/s Right ECA psv: 60 cm/s Right ICA/CCA: 0.9 Left CCA *psv: 69 cm/s Left ICA psv: 44 cm/s Left ICA edv: ??8 cm/s Left ECA psv: ??59 cm/s Left ICA/CCA: 0.6 *mid/distal (non-diseased) Measurement of a carotid stenosis, if pr esent, is based on velocity parameters that compare the residual internal carotid luminal diamet er with that of the normal distal ICA in accordance with [place] Symptomatic Carotid Endar terectomy Trial (NASCET). Procedure Note Sudhakar Moya M.D. - 06/15/2022Forma tting of this note might be different from the original. EXAM: US CAROTID BILATERAL Exam performed with color and spectral D oppler analysis. COMPARISON: None. FINDINGS: RIGHT: Very minimal atheromatous plaque in the carotid bifurcation. Doppler evaluation shows no evidence of significant ICA, ECA, or CCA stenosis. The right vertebral artery is not identified. LEFT: Very minimal atheromatous plaque i n the carotid bifurcation. Doppler evaluation shows no evidence of significant ICA, ECA, or CCA stenosis. Normal flow direction in the vertebral artery. VELOCITIES (cm/sec) Right CCA *psv: 50 cm/s Right ICA psv: 43 cm/s Right ICA edv: 9 cm/s Right ECA psv: 60 cm/s Right ICA/CCA: 0.9 Left CCA *psv: 69 cm/s Left ICA psv: 44 cm/s Left ICA edv: 8 cm/s Left ECA psv: 59 cm/s Left ICA/CCA: 0.6 *mid/distal (non-diseased) Measurement of a carotid stenosis, if pr esent, is based on velocity parameters that compare the residual internal carotid luminal diamet er with that of the normal distal ICA in accordance with [place] Symptomatic Carotid Endar terectomy Trial (NASCET). IMPRESSION: 1. No significant carotid artery stenosi s. 2. The right vertebral artery is not nathen ntified, which might be related to technique, vessel's hypoplasia, or occlusion. Sae Barron M.D., M.P.H. IMG US PROCEDURES documented in this encounter Visit Diagnoses Diagnosis Stroke Cerebrovascular Accident Personal History documented in this encounter
--- OUTSIDE RECORDS SUMMARY | 2022-08-11 09:31 | XMS_ITS | Encounter Summary ---
:1940 Demographics Address [address] [place] [address] Mobile Phone Home Phone Preferred Language ENG Marital Status Taoism Affiliation Unknown Race White Ethnic Group Not or Author Organization [facility] Address [address] [place] [address] Care Team Providers Name Role Phone Unavailable Primary Care Provider Unavailable Encounter Details Date Type Department Care Team Description 07/27/2018 Hospital Encounter Department of Mayra, Medhat segal Chest Wall Radiology, [facility], in [place], [place] [address] [place] [address] Social History Tobacco Use Types Packs/Day Years Used Date Smoking Tobacco: Never Sex Assigned at Date Recorded Not on file documented as of this encounter Medications at Time of Discharge Medication Sig Dispensed Refills Start Date End Date calcium carbonate-mag Chew 1 tablet daily. 0 04/2011 hydroxid 1,000-200 mg tablet,chewable vvfqdro-sabzjiiwa-oeqt Take 1 tablet by 0 014 333-133-5 mg tablet mouth daily. Calcium magnesium - zinc 1000 mg- 500 mg-25 mg daily. cholecalciferol (VITAMIN Take 1 capsule by 0 07/29 D3) 5,000 Unit capsule mouth once a week. FLAXSEED OIL ORAL Take by mouth daily. 0 06/18/20 14 Flaxseed oil cap p.o. daily FLAXSEED OIL ORAL Take by mouth. 0 06/18/2014 hydrocortisone (HYTONE) Apply 1 application 0 2.5 % cream topically 2 (two) times a day. simvastatin (ZOCOR) 20 mg Take 1 tablet by 0 11/27 tablet mouth daily. valACYclovir (VALTREX) Take 1 tablet (1,000 21 tablet 0 08/03/2018 1000 mg mg total) by mouth 3 tabletIndications: Pain (three) times a day Chest Wall for 7 days. documented as of this encounter Plan of Treatment Upcoming Encounters Date Type Specialty Care Team Description 09/16/2022 Office Visit Neurology Sae Barron M.D., M.P.H. [address] [phone] (Wo rk) documented as of this encounter Procedures Procedure Name Priority Date/Time Associated Comments Diagnosis DX CHEST AP OR PA RAD - Routine 07/27/2018 12:28 Pain Chest Wall Re sults for this AND LATERAL 2 (most inpatients PM CDT procedure are in VIEWS and all the results outpatients) section. documented in this encounter Results DX Chest AP or PA and Lateral 2 Views (07/27/2018 12:28 PM CDT) Anatomical Region Laterality Modality Chest, Thoracic RST LOS, Thoracic ARZ LOS, Thoracic N/A Digital Radiography FLA LOS Specimen (Source) Anatomical Collection Method Collection Time Re ceived Time Location / / Volume Laterality 07/27/2018 12:37 PM CDT Impressions 07/27/2018 12:40 PM CDT IMPRESSION: ??Mildly enlarged cardiac silhouette, mildly increased in size since outside exam 02/27/2014. A new apparent nodular opacity projected over the anterior right 5th rib is favored to rep resent overlapping structures including costochondral calcification, though inde terminate. This could be further assessed with repeat PA radiograph to as sess for persistence. Remainder unchanged. Right mastectomy. Surgical cl ips right chest wall and axilla. Mildly tortuous aorta. Mild degenerative change thoracic spine. Narrative 07/27/2018 12:40 PM CDT EXAM: ??DX CHEST AP OR PA AND LATERAL 2 VIEWS Procedure Note Sathish Michelle M.D. - 07/27/2018Formattin g of this note might be different from the original. EXAM: DX CHEST AP OR PA AND LATERAL 2 EWS IMPRESSION: Mildly enlarged cardiac silh ouette, mildly increased in size since outside exam 02/27/2014. A new apparent nodular opacity projected over the anterior right 5th rib is favored to rep resent overlapping structures including costochondral calcification, though inde terminate. This could be further assessed with repeat PA radiograph to as sess for persistence. Remainder unchanged. Right mastectomy. Surgical cl ips right chest wall and axilla. Mildly tortuous aorta. Mild degenerative change thoracic spine. Medhat [facility] PROCE JESÚS documented in this encounter Visit Diagnoses Diagnosis Pain Chest Wall documented in this encounter
--- OUTSIDE RECORDS SUMMARY | 2022-08-11 09:31 | XMS_ITS | Encounter Summary ---
:1940 Demographics Address [address] [place] [address] Mobile Phone Home Phone Preferred Language ENG Marital Status Gnosticist Affiliation Unknown Race White Ethnic Group Not or Author Organization [facility] Address [address] [place] [address] Care Team Providers Name Role Phone Unavailable Primary Care Provider Unavailable Encounter Details Date Type Department Care Team Description 06/15/2022 Clinical Communication Department of Alvarez [facility] Neurology in [place], [place] [address] [place] [address] [phone] Social History Tobacco Use Types Packs/Day Years Used Date Smoking Tobacco: Never Smokeless Tobacco: Never Sex Assigned at Date Recorded Not on file documented as of this encounter Miscellaneous Notes Telephone Encounter - Jacy Downey - 06/24/2022 2:36 PM CDT Patient called back. Needs referral sent to [facility] in [place] not to [facility]. Telephone Encounter - River Rajan - 06/15/2022 2:56 PM CDT Gunnar, This patient has a MRI scheduled in [place], but they do not offer open MRI's. They would like to be seen in [facility] Center for diagnostic imagining in [place] at an outside clinic. Can you please order a referral for this patient. Thank You documented in this encounter Plan of Treatment Upcoming Encounters Date Type Specialty Care Team Description 09/16/2022 Office Visit Neurology Sae Barron M.D., M.P.H. [address] [phone] (Wo rk) documented as of this encounter Visit Diagnoses Not on filedocumented in this encounter
--- OUTSIDE RECORDS SUMMARY | 2022-08-11 09:31 | XMS_ITS | Encounter Summary ---
:1940 Demographics Address [address] [place] [address] Mobile Phone Home Phone Preferred Language ENG Marital Status Temple Affiliation Unknown Race White Ethnic Group Not or Author Organization [facility] Address [address] [place] [address] Care Team Providers Name Role Phone Unavailable Primary Care Provider Unavailable Encounter Details Date Type Department Care Team Description 02/02/2011 Hospital Encounter HX RST BONE MARROW ITC Milly Nunez [address] J, GO07 R.N. [address] [place] [address] Social History Tobacco Use Types Packs/Day Years Used Date Smoking Tobacco: Never Assessed Sex Assigned at Date Recorded Not on file documented as of this encounter Medications at Time of Discharge Medication Sig Dispensed Refills Start Date End Date cholecalciferol (VITAMIN D3) Take 1 capsule by 0 08/19/2010 5,000 Unit capsule mouth once a week. documented as of this encounter Plan of Treatment Upcoming Encounters Date Type Specialty Care Team Description 09/16/2022 Office Visit Neurology Sae Barron M.D., M.P.H. [address] [phone] (Wo rk) documented as of this encounter Procedures Procedure Name Priority Date/Time Associated Diagnosis Comme nts PET CT SKULL TO Routine 02/02/2011 3:49 PM Result s for this THIGH CDT procedure are i n the results section. documented in this encounter Results PET CT Skull to Thigh (02/02/2011 3:49 PM CDT) Anatomical Region Laterality Modality Body N/A Nuclear Medicine Specimen (Source) Anatomical Collection Method Collection Time Re ceived Time Location / / Volume Laterality 02/02/2011 3:49 PM CDT Impressions 02/02/2011 4:32 PM CDT Mildly hypermetabolic anterior abdominal wall skin lesions consistent with known lymphoma. No additional areas of lymphoma identified. FINDINGS: There are multiple mildly FDG avid areas of skin thickening on the anterior abdominal wall corresponding to known areas of cutaneous lymphoma. There is mild increased activity in the posterior iliac wings, typical of bone marrow bio psy sites. There are no FDG avid areas of enlarged lymph nodes. The activity in the liver, spleen and bone marrow is within normal limits. Significant incidental findings on the l ow-dose CT images: Right mastectomy and right axillary lymph node dissection. Arterial calcifications. RadNuc F-18 FDG, 15 millicurie IV Electronically signed by: ?? Terrell Ness MD [id number] 02-Feb-2011 16:32 Narrative 02/02/2011 4:32 PM CDT 02-Feb-2011 15:49:00 ??Exam: NMPET/CT trunk Indications: Lymphoma NOS Finger stick blood glucose level at time of PET scan injection was 91 mg/dL. ORIGINAL REPORT - 02-Feb-2011 16:32:00 EXAM: F-18 FDG PET/CT scan was performed from the orbits through the upper thighs with CT fusion imaging for attenuation correction and anatomic coregistration only. CLINICAL INDICATION: Staging melanoma, i nitial treatment strategy. COMPARISON: None. Procedure Note Terrell Ness M.D. - 12/25/2017Form atting of this note might be different from the original. 02-Feb-2011 15:49:00 Exam: NMPET/CT trun k Indications: Lymphoma NOS Finger stick blood glucose level at time of PET scan injection was 91 mg/dL. ORIGINAL REPORT - 02-Feb-2011 16:32:00 EXAM: F-18 FDG PET/CT scan was performed from the orbits through the upper thighs with CT fusion imaging for attenuation correction and anatomic coregistration only. CLINICAL INDICATION: Staging melanoma, i nitial treatment strategy. COMPARISON: None. IMPRESSION: Mildly hypermetabolic anteri or abdominal wall skin lesions consistent with known lymphoma. No additional areas of lymphoma identified. FINDINGS: There are multiple mildly FDG avid areas of skin thickening on the anterior abdominal wall corresponding to known areas of cutaneous lymphoma. There is mild increased activity in the posterior iliac wings, typical of bone marrow biopsy sites. The re are no FDG avid areas of enlarged lymph nodes. The activity in the liver, spleen and bone marrow is within normal limits. Significant incidental findings on the l ow-dose CT images: Right mastectomy and right axillary lymph node dissection. Arterial calcifications. RadNuc F-18 FDG, 15 millicurie IV Electronically signed by: Terrell Ness MD [id number] 02-Feb-2011 16:32 Trupti Snider M.D. IMG NM PROCEDURES documented in this encounter Visit Diagnoses Not on filedocumented in this encounter
--- OUTSIDE RECORDS SUMMARY | 2022-08-11 09:31 | XMS_ITS | Encounter Summary ---
:1940 Demographics Address [address] [place] [address] Mobile Phone Home Phone Preferred Language ENG Marital Status Hindu Affiliation Unknown Race White Ethnic Group Not or Author Organization [facility] Address [address] [place] [address] Care Team Providers Name Role Phone Unavailable Primary Care Provider Unavailable Reason for Visit Appointment Request (Routine) - Closed Specialty Diagnoses / Procedures Referred By Contact Refer red To Contact Dermatology Diagnoses Screening Examination Skin Cancer Referral ID Status Reason Start Date Expiration Date Visits Requ ested Visits Authorized [id number] Closed 11/02/2019 11/01/2020 1 1 Encounter Details Date Type Department Care Team Description 03/21/2020 Office Visit Department of Arlet Viera Lymphoma P ersonal History (Primary Dx); Dermatology in M.D. Dermatoheliosis; [place], [place] [address] [place] [address]; [address] [facility] [address] Keratosis Seborrheic INLET, [place] [phone] (Wo rk) Social History Tobacco Use Types Packs/Day Years Used Date Smoking Tobacco: Never Sex Assigned at Date Recorded Not on file documented as of this encounter Progress Notes Arlet Viera M.D. - 03/21/2020 3:00 PM CDT CHIEF COMPLAINT / REASON FOR VISIT History of cutaneous follicular center lymphoma HISTORY OF PRESENT ILLNESS Ms. Brandon Del Castillo is a 79 y.o. female who presents today for full-body skin screening examination. She has no history of skin cancer. 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 Please refer to Dr. Nunez'note dated 07/27/2018 for more detailed history regarding her cutaneous follicular center lymphoma. In brief, she had treatment with external beam radiation, with recurrence later on, with subsequent treatment with external beam radiation as well as excision. This has been stable for many years, since around 2013. She was last evaluated in our department in February 2019, at which time 2 lesions were biopsied demonstrating angiomas. Today, the patient denies any new lesions of concern. She has not noticed any new, growing, changing, symptomatic skin lesions. REVIEW OF SYSTEMS The patient is feeling well in her normal state of health. No fevers/chills, unintentional weight loss, drenching night sweats. PAST MEDICAL HISTORY Negative for melanoma, nonmelanoma skin cancer Follicular center lymphoma, status post radiation/recurrence/repeat radiation/excision FAMILY HISTORY Negative for melanoma PHYSICAL EXAM General: Awake, alert, in no acute distress, and with appropriate affect. Eyes: No scleral injection or icterus. No eyelid abnormalities. Cardio: No lower extremity edema. Skin: I have examined the scalp, face, neck, chest, abdomen, back, bilateral upper extremities, and bilateral lower extremities, and buttocks. Valiente type 3 skin. Scattered dark brown to blue homogeneously colored macules and papules consistent banal appearing melanocytic nevi and blue nevi. Numerous scattered waxy brown to dark brown papules and plaques with cerebriform pattern under dermoscopyconsistent with seborrheic keratoses. Scattered bright red dome- shaped smooth papules consistent with pace angiomas. Scattered dark blue ASSESSMENT / PLAN #1 History of follicular center lymphoma, initially diagnosed in 2010, status post radiation, recurrence, radiation, and excision No evidence of recurrence. This has been stable for many years (since around 2013). Continued monitoring every 6 months to a year, or sooner if there are concerns. #2 Skin cancer screening examination no personal history of skin cancer #3 Dermatoheliosis Sun protection and sun avoidance were reviewed with the patient. Educational materials were providedregarding skin self-examination, the warning signs and symptoms of skin cancer, and the proper use of sunscreens. I would recommend a full skin cancer screening examination with an appropriately trained clinician every year. #4 Banal-appearing nevi The ABCDE criteria for melanoma was reviewed with the patient. None of the patient's nevi reach the clinical threshold for biopsy. I recommend continued sun protection, self-skin examinations, and observation. Should any of the patient's nevi change in size, color, texture, or shape or develop symptoms such as itching or bleeding, I recommend an immediate return visit for reassessment. #5 Seborrheic keratoses #6 Pace angiomas The benign nature of the skin lesion(s) was discussed with the patient. No treatment is required. I recommend continued observation. Should symptoms or changes develop related to this condition, I would recommend a return visit for reassessment. All questions answered. documented in this encounter Plan of Treatment Upcoming Encounters Date Type Specialty Care Team Description 09/16/2022 Office Visit Neurology Sae Barron M.D., M.P.H. [address] [place], [place] [phone] (Wo rk) documented as of this encounter Visit Diagnoses Diagnosis Lymphoma Personal History - Primary Dermatoheliosis Nevi Multiple Keratosis Seborrheic documented in this encounter
--- OUTSIDE RECORDS SUMMARY | 2022-08-11 09:31 | XMS_ITS | Encounter Summary ---
:1940 Demographics Address [address] [place] [address] Mobile Phone Home Phone Preferred Language ENG Marital Status Mandaeism Affiliation Unknown Race White Ethnic Group Not or Author Organization [facility] Address [address] [place] [address] Care Team Providers Name Role Phone Unavailable Primary Care Provider Unavailable Encounter Details Date Type Department Care Team Description 03/23/2019 Hospital Encounter Department of Mary Murillo [facility] Radiology, Deuce Mallory M.D., [facility], in Ph.D. Unspecified Sit e [facility]) [address] [place] [phone] Social History Tobacco Use Types Packs/Day Years Used Date Smoking Tobacco: Never Sex Assigned at Date Recorded Not on file documented as of this encounter Medications at Time of Discharge Medication Sig Dispensed Refills Start Date End Date calcium carbonate-mag Chew 1 tablet daily. 0 04/2011 hydroxid 1,000-200 mg tablet,chewable xmoftce-cnjjwkttq-bqjg Take 1 tablet by 0 014 333-133-5 [...] tablet by 0 11/27 tablet mouth daily. documented as of this encounter Plan of Treatment Upcoming Encounters Date Type Specialty Care Team Description 09/16/2022 Office Visit Neurology Sae Barron M.D., M.P.H. [address] [phone] (Wo rk) documented as of this encounter Procedures Procedure Name Priority Date/Time Associated Comments Diagnosis PET CT SKULL TO RAD - Routine 03/23/2019 2:09 Cutaneous Follicle Re sults for this THIGH (most inpatients PM CDT Center Lymphoma procedur e are in and all Unspecified Site the results outpatients) (HCC) section. documented in this encounter Results PET [...] RADIOPHARMACEUTICAL/MEDS: Route: intravenous fludeoxyglucose F 18 injection JAIL (FDG F-18),9.9 millicurie TECHNIQUE: ??F-18 FDG PET/CT [...] RADIOPHARMACEUTICAL/MEDS: Route: intravenous fludeoxyglucose F 18 injection JAIL (FDG F-18),9.9 millicurie TECHNIQUE: F-18 FDG PET/CT [...] relapsed lymphom a. Rodriguez Murillo M.D., Ph.D. [facility] PROCEDURES documented in this encounter Visit Diagnoses Diagnosis Cutaneous Follicle Center Lymphoma Unspe cified Site (HCC) documented in this encounter Administered Medications Inactive Administered Medications - up to 3 most recent administrations Medication Order MAR Action Action Date Dose Rate Site fludeoxyglucose F 18 Given 03/23/2019 9.9 millicuries Left Antecubital injection JAIL (FDG 12:45 PM CDT F-18) 9.9 millicurie, intravenous, Once, On [place] 03/23/19 at 1300, For 1 dose documented in this encounter
--- OUTSIDE RECORDS SUMMARY | 2022-08-11 09:31 | XMS_ITS | Encounter Summary ---
:1940 Demographics Address [address] [place] [address] Mobile Phone Home Phone Preferred Language ENG Marital Status Sikhism Affiliation Unknown Race White Ethnic Group Not or Author Organization [facility] Address [address] [place] [address] Care Team Providers Name Role Phone Unavailable Primary Care Provider Unavailable Encounter Details Date Type Department Care Team Description 02/02/2011 Hospital Encounter HX NO MAPPING Social History Tobacco Use Types Packs/Day Years [...] Visit Neurology Sae Barron M.D., M.P.H. [address] [phone] (Wo rk) documented as of this encounter Visit Diagnoses Not on filedocumented in this encounter
--- OUTSIDE RECORDS SUMMARY | 2022-08-11 09:31 | XMS_ITS | Encounter Summary ---
:1940 Demographics Address [address] [place] [address] Mobile Phone Home Phone Preferred Language ENG Marital Status Denominational Affiliation Unknown Race White Ethnic Group Not or Author Organization [facility] Address [address] [place] [address] Care Team Providers Name Role Phone Unavailable Primary Care Provider Unavailable Encounter Details Date Type Department Care Team Description 07/29/2022 Clinical Communication Department of Neurology Sae Barron, in [facility] roberto Bethea, M.P.H. [address] [place] [address] [phone] Social History Tobacco Use Types Packs/Day Years Used Date Smoking Tobacco: Never Smokeless Tobacco: Never Sex Assigned at Date Recorded Not on file documented as of this encounter Miscellaneous Notes Telephone Encounter - Kiera Mello LBillP.N. - 07/30/2022 8:15 AM CDT Received report . Report has been placed in your basket. Son Fabricio would like you to call him with results at [phone]. Follow up appointment is 09/16/22 . Telephone Encounter - Kiera Mello L.PBillN. - 07/29/2022 2:45 PM CDT Contacted [facility] for MRI report and images. Will fax report and have images pushed to [place]. Son informed and would like to have a call back after results are read. Patient has follow up appointment scheduled 09/16/22. Telephone Encounter - Dina Hidalgo - 07/29/2022 11:46 AM CDT Reason for Communication: Jaison (son) calling in requesting to know if MRI results have been received from [facility]. Please call back and advise. Current Can Nursing/Provider leave a detailed message?: yes Did the patient refuse triage through Nurse line? (for symptom based concerns): na Action Needed: Call back Name of Medication (if relevant): na Please send all scheduling replies to scheduling pool. documented in this encounter Plan of Treatment Upcoming Encounters Date Type Specialty Care Team Description 09/16/2022 Office Visit Neurology Sae Barron M.D., M.P.H. [address] [place] [phone] (Wo rk) documented as of this encounter Visit Diagnoses Not on filedocumented in this encounter
--- OUTSIDE RECORDS SUMMARY | 2022-08-11 09:31 | XMS_ITS | Encounter Summary ---
:1940 Demographics Address [address] [place] [address] Mobile Phone Home Phone Preferred Language ENG Marital Status Anglican Affiliation Unknown Race White Ethnic Group Not or Author Organization [facility] Address [address] [place] [address] Care Team Providers Name Role Phone Unavailable Primary Care Provider Unavailable Encounter Details Date Type Department Care Team Description 03/11/2011 Hospital Encounter HX RST DERM SURG OP [facility] Sugey Nunez M.D. [address] [facility] [address] [place] [address] (Wo rk) Social History Tobacco Use Types [...] Visit Neurology Sae Barron M.D., M.P.H. [address] [phone] (Wo rk) documented as of this encounter Visit Diagnoses Not on filedocumented in this encounter
--- OUTSIDE RECORDS SUMMARY | 2022-08-11 09:31 | XMS_ITS | Encounter Summary ---
:1940 Demographics Address [address] [place] [address] Mobile Phone Home Phone Preferred Language ENG Marital Status Advent Affiliation Unknown Race White Ethnic Group Not or Author Organization [facility] Address [address] [place] [address] Care Team Providers Name Role Phone Unavailable Primary Care Provider Unavailable Encounter Details Date Type Department Care Team Description 06/24/2022 Orders Only Department of Neurology in Sae Barron M.D., [place], [place] M.P.H. [address] [place] [address] [address] [place] [address] [place], [place] [phone] (Wo rk) Social History Tobacco Use Types Packs/Day Years Used Date Smoking Tobacco: Never Smokeless Tobacco: Never Sex Assigned at Date Recorded Not on file documented as of this encounter Plan of Treatment Upcoming Encounters Date Type Specialty Care Team Description 09/16/2022 Office Visit Neurology Sae Barron M.D., M.P.H. [address], [place] [phone] (Wo rk) documented as of this encounter Visit Diagnoses Not on filedocumented in this encounter
--- OUTSIDE RECORDS SUMMARY | 2022-08-11 09:31 | XMS_ITS | Encounter Summary ---
:1940 Demographics Address [address] [place] [address] Mobile Phone Home Phone Preferred Language ENG Marital Status Sabianism Affiliation Unknown Race White Ethnic Group Not or Author Organization [facility] Address [address] [place] [address] Care Team Providers Name Role Phone Unavailable Primary Care Provider Unavailable Encounter Details Date Type Department Care Team Description 07/01/2022 Orders Only Department of Neurology in Sae Barron M.D., [place], [place] [facility] [address] [place] [address] [address] [place] [address] [place], [place] [phone] (Wo rk) Social History Tobacco Use Types Packs/Day Years Used Date Smoking Tobacco: Never Smokeless Tobacco: Never Sex Assigned at Date Recorded Not on file documented as of this encounter Plan of Treatment Upcoming Encounters Date Type Specialty Care Team Description 09/16/2022 Office Visit Neurology Sae Barron M.D., M.P.H[facility] [address], [place] [phone] (Wo rk) documented as of this encounter Visit Diagnoses Not on filedocumented in this encounter
--- OUTSIDE RECORDS SUMMARY | 2022-08-11 09:31 | XMS_ITS | Encounter Summary ---
:1940 Demographics Address [address] [place] [address] Mobile Phone Home Phone Preferred Language ENG Marital Status Shinto Affiliation Unknown Race White Ethnic Group Not or Author Organization [facility] Address [address] [place] [address] Care Team Providers Name Role Phone Unavailable Primary Care Provider Unavailable Encounter Details Date Type Department Care Team Description 03/13/2009 Hospital Encounter HX RST BREAST Britt Mays M.D. [address] [place] [address] (Wo rk) Social History Tobacco Use Types Packs/Day Years Used Date Smoking Tobacco: Never Assessed Sex Assigned at Date Recorded Not on file documented as of this encounter Plan of Treatment Upcoming Encounters Date Type Specialty Care Team Description 09/16/2022 Office Visit Neurology Sae Barron M.D., M.P.H. [address] [phone] (Wo rk) documented as of this encounter Visit Diagnoses Not on filedocumented in this encounter
--- OUTSIDE RECORDS SUMMARY | 2022-08-11 09:31 | XMS_ITS | Encounter Summary ---
:1940 Demographics Address [address] [place] [address] Mobile Phone Home Phone Preferred Language ENG Marital Status Samaritan Affiliation Unknown Race White Ethnic Group Not or Author Organization [facility] Address [address] [place] [address] Care Team Providers Name Role Phone Unavailable Primary Care Provider Unavailable Reason for Visit Reason Comments Medical Information Encounter Details Date Type Department Care Team Description 06/30/2022 Clinical Communication Department of Sleep Sae Barron Medical Information Medicine in Neema Bonilla, Clementina Michael. [place] [phone] [facility] [place] [phone] Social History Tobacco Use Types Packs/Day Years Used Date Smoking Tobacco: Never Smokeless Tobacco: Never Sex Assigned at Date Recorded Not on file documented as of this encounter Miscellaneous Notes Telephone Encounter - Ifarh Brar RBillMBillABill - 07/02/2022 12:17 PM CDT Called Son and talked to him about what Dr Berg said. Son said that Jovanny Abdalla would be further for them in distance. They do still have the large bore magnet MRI appt in [place]. Son said that he will talk to his mother and then get back to us if they think of a different plan. Theologia said theremight be a place in [place] but after talking to the son he thinks she might be getting her appointment mixed up. Son will call us back either today 07/02 or next week. Telephone Encounter - Coby Zimmer L.P.N. - 07/01/2022 12:04 PM CDT SUBJECTIVE CHIEF COMPLAINT / REASON FOR CALL MRI concerns Information Discussed Spoke with zakia Blackwood he was wishing to have an open MRI completed. Researched the area the only one in the region is [facility]. . External referral needs to be placed and faxed to [facility]. PLAN Disposition/Recommendation: Provider please complete referral. Nurse please fax referral and call back son with information. Information/Education: patient/caller attempted but unable to teach back; needs reinforcement Caller agreeable to plan of care: yes The following references were used: provider Dr. Barron. Telephone Encounter - Coby Zimmer L.P.N. - 07/01/2022 10:49 AM CDT Left message to call back. Telephone Encounter - Brian Vanessa - 06/30/2022 4:07 PM CDT Reason for Communication: Patient zakia Blackwood called and is wanting to talk to Anderson or nurse about an echo and a MRI appt, please advise. Current Can Nursing/Provider leave a detailed message: yes Did the patient refuse triage through Nurse line? (for symptom based concerns): Action Needed: Name of Medication (if relevant): documented in this encounter Plan of Treatment Upcoming Encounters Date Type Specialty Care Team Description 09/16/2022 Office Visit Neurology Sae Barron M.D., M.P.H. [address] [phone] (Wo rk) documented as of this encounter Visit Diagnoses Not on filedocumented in this encounter
--- OUTSIDE RECORDS SUMMARY | 2022-08-11 09:31 | XMS_ITS | Encounter Summary ---
:1940 Demographics Address [address] [place] [address] Mobile Phone Home Phone Preferred Language ENG Marital Status Bahai Affiliation Unknown Race White Ethnic Group Not or Author Organization [facility] Address [address] [place] [address] Care Team Providers Name Role Phone Unavailable Primary Care Provider Unavailable Reason for Referral Outpatient (Routine) - Authorized Specialty Diagnoses / Procedures Referred By Contact Refer red To Contact Neurology Sae Barron M.D ., M.P.H. [facility] Region [address] [place] [phone] Referral ID Status Reason Start Date Expiration Date Visits V isits Requested Authorized [id number] Authorized 05/28/2022 05/27/2025 1 1 MRI/CAT/PET Scan (Routine) - Authorized Specialty Diagnoses / Procedures Referred By Contact Refer red To Contact Radiology Diagnoses Stroke Cerebrovascular Accident Personal History Sae Barron M.D., [facility] Region Procedures MR Brain without IV Contrast AK MRI BRAIN WO CNTRST HC MRI BRAIN WO CNTRST M.P.H[facility] [address] [place] [address] Referral ID Status Reason Start Date Expiration Date Visits V isits Requested Authorized [id number] Authorized 05/28/2022 05/28/2023 1 1 Outpatient (Routine) - Closed Specialty Diagnoses / Procedures Referred By Contact Refer red To Contact Diagnoses Stroke Cerebrovascular Accident Personal History Sae Barron M.D., [facility] Region Procedures US Carotid Bilateral M.P.H. [address] [place] [phone] Referral ID Status Reason Start Date Expiration Date Visits Requ ested Visits Authorized [id number] Closed 05/28/2022 05/28/2023 1 1 Reason for Visit Reason Comments Cerebrovascular Accident Ref. Dr. Anderson [facility] Appointment Request (Routine) - Closed Specialty Diagnoses / Procedures Referred By Contact Refer red To Contact Neurology Referral ID Status Reason Start Date Expiration Date Visits Requ ested Visits Authorized [id number] Closed 05/18/2022 05/18/2023 1 Encounter Details Date Type Department Care Team Description 05/28/2022 Comprehensive Visit Department of Sae Barron Stroke Cerebrovascular Neurology in Neema Bonilla, Accident Person Cheryl CorbinP.HBill History (Primary Dx) [place] [address] [place] [phone] Social History Tobacco Use Types Packs/Day Years Used Date Smoking Tobacco: Never Smokeless Tobacco: Never Tobacco Cessation: Counseling Given: Not Answered Sex Assigned at Date Recorded Not on file documented as of this encounter Last Filed Vital Signs Vital Sign Reading Time Taken Comments Blood Pressure 141/85 05/28/2022 1:02 PM CDT Pulse 70 05/28/2022 1:02 PM CDT Temperature - - Respiratory Rate - - Oxygen Saturation - - Inhaled Oxygen Concentration - - Weight 61.9 kg (136 lb 7.4 oz) 05/28/2022 12:44 PM CDT Height - - Body Mass Index 24.95 07/25/2014 3:28 PM CDT documented in this encounter Consult Notes Sae Barron M.D., M.P.H. - 05/28/2022 1:00 PM CDT SUBJECTIVE Theologia presents today for evaluation of stroke that was said to have occurred when she was in [place] in February on the . She developed right sided numbness involving her arm and V2 distribution of her face and this is not completely resolved. She had an MRI increase and her son, Abhijit states that she had the both an ischemic and hemorrhagic component to her stroke. They bring in records in Lebanese which I am unfortunately not able to interpret. It sounds as though she has been stable since that time but upon return to night states although she is on Plavix she has not had an echocardiogram, Holter monitor a duplex scan of the neck nor an MRI brain locally. She does have a history of bradycardia in she has seen a financial coordinator in the very near future and Abhijit suggests that they are likely to do a Holter monitor and I wonder whether they are going to do an echocardiogram. I suggested to him that I will order an MRI brain, an echocardiogram, transthoracic and a duplex scan of the neck to look for embolic sources for a stroke. REVIEW OF SYSTEMS No visits with results within 6 Month(s) from this visit. Latest known visit with results is: Procedure visit on 03/23/2019 Component Date Value Ref Range Status Gross Description 03/23/2019 Final Value:A: A. Received in formalin labeled with the patient's name, medical record number, and left shoulder is a 0.7 cm in diameter lucero-white skin punch biopsy, excised to a depth of 0.6 cm. There is a 0.3 x 0.3 cm pale lucero skaggs pigmented lesion centrally located on the skin surface. Specimen is bisected and submitted entirely in cassette A1. Grossed by MITUL. B: B. Received in formalin labeled with the patient's name, medical record number and designated as right lateral back, is a 3.8 x 1.6 cm lucero-white, elliptical portion of skin which is excised to depth of 0.9 cm. The skin surface displays a 1 x 0.7 cm black-blue raised lesion which measures 0.4 cm from the nearest radial margin. The specimen is inked, serially sectioned and entirely submitted for permanent sections. Gross by [email or web address]. B1: Tips B2-B3: Remaining cross-sections Report electronically signed by 03/23/2019 Dina Arnold D.O. Final Case Number 03/23/2019 [id number] Final Interpretation 03/23/2019 Final Value:FINAL DIAGNOSIS A. Left shoulder, Skin punch biopsy: Angioma B. Right lateral back, Skin excision: Angioma OBJECTIVE BP 141/85 (BP Location: Left arm, Patient Position: Sitting, Cuff Size: Regular) Pulse 70 Wt 61.9 kg BMI 24.95 kg/m?? Physical Exam COGNITION: Alert and cooperative. During wish is passable but her son translates some of the visit for her. 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 MOTOR: Full strength throughout the upper and lower extremities bilaterally both proximally and distally. Normal tone. No pronator drift. No tremor. REFLEXES: Normal and symmetric at the biceps, triceps, brachioradialis, knees, and ankles. SENSORY: She claims that touching the right side of her face in about the V2 distribution feels a little different than touching the left side and that is true on the right forearm. CEREBELLAR: ARMs-normal GAIT: Normal Her heard a bruit on the left carotid and I do not hear any systolic ejection murmurs in the heart. I do not find any motor symptoms from this stroke. ASSESSMENT / PLAN #1 Stroke Cerebrovascular Accident Personal History Patient is on Plavix because she can not take aspirin and that seems reasonable to me. Because I do not know what the stroke was although I suspect it was small-vessel I think the Plavix is appropriate. I would have thought it unlikely to be embolic but given that I can hear bruit on theleft side I think she needs a carotid duplex scan, an echocardiogram and an MRI brain. I also think she has a Holter monitor. I have ordered all that except for the Holter monitor because she is scheduled to see a financial coordinator. I told her son that if the cardiologists orders an echocardiogram and a Holter monitor than that would be fine but that those tests need to be done. - US Carotid Bilateral; Future; Expected date: 05/28/2022 - Echo Transthoracic (TTE); Future; Expected date: 05/28/2022 - MR Brain without IV Contrast; Future; Expected date: 05/28/2022 Other orders - Neurology office visit (clinic); Future; Expected date: 08/20/2022 (After tests) I personally spent over half of a total 60 minutes in counseling and discussion with the patient andcoordination of care as described above. documented in this encounter Plan of Treatment Upcoming Encounters Date Type Specialty Care Team Description 09/16/2022 Office Visit Neurology Sae Barron M.D., M.P.H. [address] [place], [place] [phone] (Wo rk) Scheduled Orders Name Type Priority Associated Diagnoses Order S chedule MR Brain without Imaging RAD - Routine (most Stroke Cerebrovas cular Expected: IV Contrast inpatients and all Accident Personal 09/2021 outpatients) History (Approximate), Expires: 05/28/2023 Scheduled Referrals Name Type Priority Associated Diagnoses Order S chedule Neurology office Outpatient Referral Routine Expe cted: visit (clinic) 08/20/2022 (Approximate), Expires: 08/27/2023 documented as of this encounter Results US Carotid Bilateral (06/15/2022 2:55 PM CDT) Anatomical Region Laterality Modality Head and Neck, Ultrasound RST LOS, Ultrasound ARZ LOS, Bilat eral Ultrasound Neuroradiology [facility] Specimen (Source) Anatomical Collection Method Collection Time [...] normal distal ICA in accordance with [place] Symptomatic Carotid Endar terectomy Trial (NASCET). Procedure [...] normal distal ICA in accordance with [place] Symptomatic Carotid Endar terectomy Trial (NASCET). IMPRESSION: 1. No significant carotid artery stenosi s. 2. The right vertebral artery is not nathen ntified, which might be related to technique, vessel's hypoplasia, or occlusion. Sae Barron M.D., M.P.H. IMG US PROCEDURES documented in this encounter Visit Diagnoses Diagnosis Stroke Cerebrovascular Accident Personal History - Primary Stroke Cerebrovascular Accident Personal History documented in this encounter
--- OUTSIDE RECORDS SUMMARY | 2022-08-11 09:31 | XMS_ITS | Encounter Summary ---
:1940 Demographics Address [address] [place] [address] Mobile Phone Home Phone Preferred Language ENG Marital Status Zoroastrian Affiliation Unknown Race White Ethnic Group Not or Author Organization [facility] Address [address] [place] [address] Care Team Providers Name Role Phone Unavailable Primary Care Provider Unavailable Encounter Details Date Type Department Care Team Description 03/25/2011 Hospital Encounter HX RST DERM SURG NURSE Provider, [facility] Social History Tobacco Use Types Packs/Day Years [...] Neurology Sae Barron M.D., M.P.H. [address] [place] [phone] (Wo rk) documented as of this encounter Visit Diagnoses Not on filedocumented in this encounter
--- OUTSIDE RECORDS SUMMARY | 2022-08-11 09:31 | XMS_ITS | Encounter Summary ---
:1940 Demographics Address [address] [place] [address] Mobile Phone Home Phone Preferred Language ENG Marital Status Spiritism Affiliation Unknown Race White Ethnic Group Not or Author Organization [facility] Address [address] [place] [address] Care Team Providers Name Role Phone Unavailable Primary Care Provider Unavailable Encounter Details Date Type Department Care Team Description 03/28/2019 Clinical Communication Department of Lidia Wade M.D. Dermatology in [address] [place] [address] [address] [facility] [address] [place], [place] [phone] (Work) [phone] Social History Tobacco Use Types Packs/Day Years Used Date Smoking Tobacco: Never Sex Assigned at Date Recorded Not on file documented as of this encounter Miscellaneous Notes Telephone Encounter - Lidia Wade M.D. - 03/28/2019 5:02 PM CDT #Biopsy results At the request of Dr. Gil in her absence, I called Mrs. Del Castillo with her biopsy results. 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 I discussed with the patient that she can travel without any worry. She was very grateful for this phone call. documented in this encounter Plan of Treatment Upcoming Encounters Date Type Specialty Care Team Description 09/16/2022 Office Visit Neurology Sea Barron M.D., M.P.H. [address] [phone] (Wo rk) documented as of this encounter Visit Diagnoses Not on filedocumented in this encounter
--- OUTSIDE RECORDS SUMMARY | 2022-08-11 09:31 | XMS_ITS | Clinical Summary ---
:1940 Demographics Address [address] [place] [address] Mobile Phone Home Phone Preferred Language ENG Marital Status Jainism Affiliation Unknown Race White Ethnic Group Not or Author Organization [facility] Address [address] [place] [address] Care Team Providers Name Role Phone Unavailable Primary Care Provider Unavailable Source Comments Patient records contain information from all sites at [facility]. For routine questions regarding patient records, call [phone] during business hours, M-F 8:00 AM - 5:00 PM Central Time. Record requests for emergency care only can be directed to [phone] at any time.[facility] Allergies Active Allergy Reactions Severity Noted Date Comments Aspirin Edema 03/12/2009 Low blood press ure, rash. Azithromycin Other (see comments) 03/27/2009 Unknown . Clindamycin Other (see comments) 03/27/2009 Unknown . Iodinated Contrast Media Other (see comments) 03/12/20 09 Unknown. Medications Medication Sig Dispensed Refills Start Date End Date Status hydrocortisone Apply 1 0 06/09/2017 Acti ve (HYTONE) 2.5 % cream application topically 2 (two) times a day. simvastatin (ZOCOR) 20 Take 1 tablet by 0 12/25/2015 Active mg tablet mouth daily. jdnbegr-cdxdsaxku-qofe Take 1 tablet by 0 07/25/2014 Active 333-133-5 mg tablet mouth daily. Calcium magnesium - zinc 1000 mg- 500 mg-25 mg daily. FLAXSEED OIL ORAL Take by mouth 0 06/18/2014 Active daily. Flaxseed oil cap p.o. daily cholecalciferol Take 1 capsule by 0 08/19/2010 Active (VITAMIN D3) 5,000 mouth once a week. Unit capsule calcium carbonate-mag Chew 1 tablet 0 09/03/2011 Active hydroxid 1,000-200 mg daily. tablet,chewable FLAXSEED OIL ORAL Take by mouth. 0 06/18/2014 Active UNABLE TO FIND Med Name: Medhat 0 Active 50 mg- 850 mg two times a day. Contour Next Test TEST 2 TO 3 TIMES 0 05/05/2022 Active Strips strips A DAY clopidogreL (PLAVIX) Take 75 mg by 0 05/27/2022 Active 75 mg tablet mouth daily. irbesartan (AVAPRO) Take 150 mg by 0 05/27/2022 Active 150 mg tablet mouth daily. Hospital, Clinic, or Other Ordered Dose Route Frequency Start Date End Date Status Facility Administered Medication lidocaine-EPINEPHrine 2 - 50 mL inj As needed 03/23/2019 Active 1%-1:200,000 injection 2-50 mL (XYLOCAINE W/EPI) Active Problems Patient Care Coordination Note Formatting of this note might be differe nt from the original. 05/28/22 OMARI signed for son Fabricio Godoy avas - phone [phone]. 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 son about the M RI results.) 07/29/2022 Clinical Communication Neurology Sae Barron M.D., M.P.H. 07/13/2022 Clinical Communication Sleep Medicine Sae Barron M.D., M.P.H. 07/10/2022 Clinical Communication Neurology Sae Barron Refer ral Neema Bonilla, M.P.H. 07/01/2022 Orders Only Neurology Sae Barron M.D., M.P.H. 06/30/2022 Clinical Communication Sleep Medicine Sae Barron Med ical Information Neema Bonilla, M.P.H. 06/24/2022 Orders Only Neurology Sae Barron M.D., M.P.H. 06/15/2022 Hospital Encounter Radiology Sae Barron Stroke Ce rebrovascular Neema Bonilla, Accident Person al M.P.H. History 06/15/2022 Clinical Communication Neurology Alvarez Peterson M.D. 05/28/2022 Comprehensive Visit Neurology Sae Barron Stroke C erebrovascular Neema Bonilla, Accident Person al M.P.H. History (Primar y Dx) 05/28/2022 Clinical Communication Sleep Medicine Sae Barron M.D., M.P.H. from Last 3 Months Social History Tobacco Use Types Packs/Day Years Used Date Smoking Tobacco: Never Smokeless Tobacco: Never Tobacco Cessation: Counseling Given: Not Answered Sex Assigned at Date Recorded Not on file Last Filed Vital Signs Vital Sign Reading Time Taken Comments Blood Pressure 141/85 05/28/2022 1:02 PM CDT Pulse 70 05/28/2022 1:02 PM CDT Temperature - - Respiratory Rate - - Oxygen Saturation - - Inhaled Oxygen Concentration - - Weight 61.9 kg (136 lb 7.4 oz) 05/28/2022 12:44 PM CDT Height 157.5 cm (5' 2.01) 07/25/2014 3:28 PM CDT Body Mass Index 24.95 07/25/2014 3:28 PM CDT Plan of Treatment Upcoming Encounters Date Type Specialty Care Team Description 09/16/2022 Office Visit Neurology Sae Barron M.D., M.P.H. [address] [phone] (Wo rk) Health Maintenance Due Date Last Done Comments Creatinine Level 1940 Potassium Level 1940 Sodium Level 1940 COVID-19 Vaccine (#1) 05/29/1941 Zoster Vaccines (1 of 2) 11/27/1959 Depression Screening (Annual 09/27/2021 PHQ-2) Fall Risk Screen (Annual) 09/27/2021 Office Visit for Blood Pressure 08/27/2022 05/28/2022 Check / Re-check DTaP,Tdap,and Td Vaccines (3 - Td 03/09/2026 03/09/2016, or Tdap) Pneumococcal vaccine (65+ years) Completed 03/09/2016, 09/2006 Influenza Vaccine Completed 07/09/2022, 07/29/2021, 08/02/2019, Additional history exists Procedures Procedure Name Priority Date/Time Associated Diagnosis Comme nts OUTSIDE MR NEURO Routine 07/20/2022 10:10 Results for AM CDT this procedure are in the results section. US CAROTID RAD - Routine 06/15/2022 2:55 Stroke Results for BILATERAL (most inpatients PM CDT Cerebrovascular this pro cedure and all Accident Personal are in the outpatients) History results section. from Last 3 Months Results BRAIN, pMRI=59-Outside MR Neuro (07/20/2022 10:10 AM CDT) Specimen (Source) Anatomical Collection Method Collection Time Re ceived Time Location / / Volume Laterality 07/20/2022 10:07 AM CDT Narrative [facility] - 07/20/2022 12:49 PM CDT This order has been created and auto-finalized to support the import of outside images. If available, original i nterpretation can be found on the Media Tab in Chart Review, in Document V iewer, or as an image in QREADS. If a re-interpretation or overread is re quired please follow defined workflow. ?? Provider Not In System IMG MRI PROCEDURES Performing Organization Address City/State/ZIP Code Phon e Number [facility] NA US Carotid Bilateral (06/15/2022 2:55 PM CDT) [...] normal distal ICA in accordance with [place] Symptomatic Carotid Endar terectomy Trial (NASCET). Procedure [...] normal distal ICA in accordance with [place] Symptomatic Carotid Endar terectomy Trial (NASCET). IMPRESSION: 1. No significant carotid artery stenosi s. 2. The right vertebral artery is not nathen ntified, which might be related to technique, vessel's hypoplasia, or occlusion. Sae Barron M.D., M.P.H. IMG US PROCEDURES from Last 3 Months Insurance Payer Benefit Plan Subscriber ID Effective Phone Address Typ e / Group Dates MEDICARE MEDICARE A [id number] 2005-Pres [address] [place] [address] [employer] [place] [id number] 2016-Pres [phone] PO ALESHA X Cost Share BLUE [employer]IELD BLUE COST ent [phone] [place] [address] Guarantor Name Account Type Relation to Date of Phone Billing Patient Address Apolonia Del Castillo Personal/Family Self 1940 [address] (Home) [place] [address]
--- OUTSIDE RECORDS SUMMARY | 2022-08-11 09:31 | XMS_ITS | Encounter Summary ---
:1940 Demographics Address [address] [place] [address] Mobile Phone Home Phone Preferred Language ENG Marital Status Orthodox Affiliation Unknown Race White Ethnic Group Not or Author Organization [facility] Address [address] [place] [address] Care Team Providers Name Role Phone Unavailable Primary Care Provider Unavailable Encounter Details Date Type Department Care Team Description 03/28/2009 - Hospital Encounter HX RST UNIT 9-2 03/30/2009 ORTHOPEDICS Social History Tobacco Use Types Packs/Day Years Used Date Smoking Tobacco: Never Assessed Sex Assigned at Date Recorded Not on file documented as of this encounter Plan of Treatment Upcoming Encounters Date Type Specialty Care Team Description 09/16/2022 Office Visit Neurology Sae Barron M.D., M.P.H. [address] [phone] (Wo rk) documented as of this encounter Procedures Procedure Name Priority Date/Time Associated Diagnosis Comme nts DX CHEST 1 VIEW Routine 03/28/2009 11:13 PM Resul ts for this CDT procedure are i n the results section. DX CHEST 1 VIEW Routine 03/28/2009 1:21 PM Result s for this CDT procedure are i n the results section. HXGENERAL PATHOLOGY Routine 03/28/2009 10:53 AM R esults for this REPORT CDT procedure are i n the results section. documented in this encounter Results DX Chest 1 View (03/28/2009 11:13 PM CDT) Anatomical Region Laterality Modality Chest N/A Radiographic Imaging Specimen (Source) Anatomical Collection Method Collection Time Re ceived Time Location / / Volume Laterality 03/28/2009 11:13 PM CDT Narrative 03/29/2009 7:12 AM CDT 28-Mar-2009 23:13:00 ??Exam: Post OP Chest Indications: S/P RT Mastectomy ORIGINAL REPORT - 28-Mar-2009 23:20:00 Chest; 1 view: Right mastectomy with surgical drains. S clayton earlier today at 12:50 p.m., new ETT in good position. Atelectasis left lung base. Electronically signed by: ?? Shonrosey Escobarca [phone] [id number] 28-Mar-20 09 23:20 I have reviewed the films/images and agr ee with the above interpretation. Electronically signed by: ?? Bayron ??Kayley JOHN ??[phone] 29-Mar-2009 07:12 Procedure Note Malina Zaldivar M.D. - 12/26/2017Form atting of this note might be different from the original. 28-Mar-2009 23:13:00 Exam: Post OP Chest Indications: S/P RT Mastectomy ORIGINAL REPORT - 28-Mar-2009 23:20:00 Chest; 1 view: Right mastectomy with surgical drains. S clayton earlier today at 12:50 p.m., new ETT in good position. Atelectasis left lung base. Electronically signed by: Shon Reynaga [phone] [id number] 28-Mar-20 09 23:20 I have reviewed the films/images and agr ee with the above interpretation. Electronically signed by: Bayron Zaldivar MD [id number] 29-Mar-2009 07:1 2 Deepti Kay M.D. IMEfe DIAGNOSTIC IMAGING PROCE DURES DX Chest 1 View (03/28/2009 1:21 PM CDT) Anatomical Region Laterality Modality Chest N/A Radiographic Imaging Specimen (Source) Anatomical Collection Method Collection Time Re ceived Time Location / / Volume Laterality 03/28/2009 1:21 PM CDT Narrative 03/28/2009 1:23 PM CDT 28-Mar-2009 13:21:00 ??Exam: Post OP Chest Indications: post-op. right biopsy-prove n breast carcinoma; right mastectomy- simple. ORIGINAL REPORT - 28-Mar-2009 13:23:00 Chest; 1 view: Postoperative changes right breast with surgical drain. Negative for PO purposes. Electronically signed by: ?? aMry Eckert MD. ??[phone] 28-Mar-2009 13:2 3 Procedure Note Sil Eckert M.D. - 12/26/2017Fo rmatting of this note might be different from the original. 28-Mar-2009 13:21:00 Exam: Post OP Chest Indications: post-op. right biopsy-prove n breast carcinoma; right mastectomy- simple. ORIGINAL REPORT - 28-Mar-2009 13:23:00 Chest; 1 view: Postoperative changes right breast with surgical drain. Negative for PO purposes. Electronically signed by: Mary Eckert MD. [phone] 28-Mar-2009 13:23 Deepti Kay M.D. IMG DIAGNOSTIC IMAGING PROCE JESÚS Hx general Pathology Report (03/28/2009 10:53 AM CDT) Specimen Anatomical Collection Method Collection Time Receive d Time (Source) Location / / Volume Laterality 03/28/2009 10:53 03/28/2009 AM CDT 10:53 AM CDT Narrative [facility] - 03/28/2009 10:53 AM CDT ?03/28/2009 Surgical Pathology ?([id number]) ? Requested By: ??Deepti Kay M.D. ??[phone] ?DIAGNOSIS: ?? A. ??Lymph node, right axillary sentine l No. 1, sentinel biopsy: ??A single right axillary sentinel lymph no de with blue dye is negative for metastatic carcinoma [AJCC pN0 (i-) (sn)]. ??Immunohistochemical cytokeratin stain was performed on the paraffin embedded sentinel lymph node tissue and confirms the H&E impression. ?? B. ??Lymph node, right axillary sentine l No. 2, sentinel biopsy: ??A single right axillary sentinel lymph no de without blue dye is negative for metastatic carcinoma [AJCC pN0 (i-) (sn)]. ?? Immunohistochemical cytokeratin stain w as performed on the paraffin embedded sentinel lymph node tissue and confirms the H&E impression. ?? C. ??Lymph node, right axillary, biopsy : ??A single lymph node is negative for tumor. ?? D. ??Breast, right, simple mastectomy: ??Infiltrating ductal carcinoma, Roberta grade I (of III) [tubules 2/3, nuclei 1/3, mitoses 2/3; Roberta score 5/9] is i dentified forming a mass (2.2 x 1.4 x 1.4 cm) located in the central aspect of the breast in the subareolar region [AJCC pT2]. ??Ductal carcinoma in situ, low nuclear grade, comprises approximately 5-25% of the tumor volume. ??Focal atypical lobular hyperplasia involves a large duct beneath the nipple. ??Angiolymphatic invasion is ab sent. ??The non-neoplastic breast parenchyma shows nonproliferativ e fibrocystic changes. ?? Biopsy site changes are present. ??A se parate fibrotic area (1.6 x 1.5 x 0.7 cm), consistent with prior ex cisional biopsy site, is identified situated 3.5 cm posteromedia lly to the tumor mass. ??The tumor does not involve the nipple, over lying skin, or underlying chest wall. ??All surgical resection ma rgins, including the deep margin, are negative for tumor (minimum tumor free margin, 7.0 cm, deep margin). ?Seen in consultation with Dr. Basilia Farr. ?? E. ??Lymph node, right axillary sentine l No. 3, sentinel biopsy: ??A single right axillary sentinel lymph no de without blue dye is negative for metastatic carcinoma [AJCC pN0 (i-) (sn)]. ?? Immunohistochemical cytokeratin stain w as performed on the paraffin embedded sentinel lymph node tissue and confirms the H&E impression. ? 04/01/2009 16:26 Interpreted by: Darío Hernadez M.D. [phone] Report electronically signed by Darío Acuña M.D. Transcribed by: jacob 03/28/2009 14:38:28 ? PRELIMINARY FROZEN SECTION CONSULTATION : A, B, E. ??Lymph nodes; right axillary sentinel Nos. 1, 2, and 3; sentinel biopsies: ??Multiple (3) right axillary sentinel lymph nodes are negative for metastatic carcinoma. ??Hold over for cytokeratin stains to rule out micrometastases. ?? C. ??Lymph node, right axillary, biopsy : ??A single lymph node is negative for metastatic carcinoma. ?? D. ??Breast, right, simple mastectomy: ??Infiltrating ductal carcinoma, [place] grade I (of III) is identified forming a mass (2.2 x 1.4 x 1.4 cm) located in the maricruz tral aspect of the breast in the subareolar region. ??A separate fib rotic area (1.6 cm in greatest dimension) consistent with prior biopsy site is identified. ??All surgical resection margins are negative for tumor. ?? Frozen section histologic interpretatio n performed by: ??Darío Montes M.D. ?? GROSS DESCRIPTION: A. ??Received fresh labeled right axil ignacio sentinel lymph node #1 is a single 1.4 x 0.6 x 0.3 cm lymph no de. ??Blue dye is identified in the lymph node. ??All submitted. ??G rossed by WXS. ?? B. ??Received fresh labeled right axil ignacio sentinel lymph node #2 is a single 1.1 x 0.6 x 0.3 cm lymph no de. ??Blue dye is not identified in the lymph node. ??All sub mitted. ??Grossed by WXS. ?? C. ??Received fresh labeled right axil ignacio lymph node, palpable is a 1.0 x 0.4 x 0.4 cm lymph node. ??All lymphatic tissue submitted. ?? Grossed by WXS. ?? D. ??Received fresh labeled right jayde st is a 605.0 gram, 24.5 x 17.0 x 4.5 cm oriented simple mastectom y with a 24.5 x 9.0 cm skin ellipse. ??A nipple is present. ??Gross ly, there is a single 2.2 x 1.4 x 1.4 cm mass located in the central as pect, 7.0 cm to the nearest (deep) margin. ??Cream Gatherer section s submitted. ??Grossed by WXS. ?? E. ??Received fresh labeled right axil ignacio sentinel lymph node #3 is a single 2.2 x 1.6 x 0.7 cm lymph no de. ??Blue dye is not identified in the lymph node. ??All sub mitted. ??Grossed by WXS. ?? BLOCK SUMMARY: Part A: ??Right axilla sentinel lymph n ode #1 ?[address] #1 1of2 ?[address] #1 2of2 ?? Part B: ??Right axilla sentinel lymph n ode #2 ?[address] #2 1of2 ?[address] #2 2of2 ?? Part C: ??Right axillary Lymph Node, pa lpable ?1 Rt axillary lymph node 1 ?? Part D: ??Right Breast ?1 Rt nipple ?2 Rt breast cent prior cavity ?3 Rt breast med fibrotic area ?4 Rt breast tumor ?5 Rt breast tumor ?6 Rt breast UO ?7 Rt breast LO ?8 Rt breast LI ?9 Rt breast UI ?? Part E: ??Right ??axillary sentinel lym ph node #3 ?[address] #[address] 1of2 ?[address] #3 2of2 ?? Salvador Farr M.D. ? Procedure Note 12/18/2017 03/28/2009 Surgical Pathology ([id number]) Requested By: Deepti Kay M.D. [phone] DIAGNOSIS: A. Lymph node, right axillary sentinel No. 1, sentinel biopsy: A single right axillary sentinel lymph no de with blue dye is negative for metastatic carcinoma [AJCC pN0 (i-) (sn)]. Immunohistochemical cytokeratin stain was performed on the paraffin embedded sentinel lymph node tissue and confirms the H&E impression. B. Lymph node, right axillary sentinel No. 2, sentinel biopsy: A single right axillary sentinel lymph no de without blue dye is negative for metastatic carcinoma [AJCC pN0 (i-) (sn)]. Immunohistochemical cytokeratin stain w as performed on the paraffin embedded sentinel lymph node tissue and confirms the H&E impression. C. Lymph node, right axillary, biopsy: A single lymph node is negative for tumor. D. Breast, right, simple mastectomy: In filtrating ductal carcinoma, Roberta grade I (of III) [tubules 2/3, nuclei 1/3, mitoses 2/3; Roberta score 5/9] is i dentified forming a mass (2.2 x 1.4 x 1.4 cm) located in the central aspect of the breast in the subareolar region [AJCC pT2]. Ductal ca rcinoma in situ, low nuclear grade, comprises approximately 5-25% of the tumor volume. Focal atypical lobular hyperplasia involves a large duct beneath the nipple. Angiolymphatic invasion is abse nt. The non-neoplastic breast parenchyma shows nonproliferativ e fibrocystic changes. Biopsy site changes are present. A sepa rate fibrotic area (1.6 x 1.5 x 0.7 cm), consistent with prior ex cisional biopsy site, is identified situated 3.5 cm posteromedia lly to the tumor mass. The tumor does not involve the nipple, over lying skin, or underlying chest wall. All surgical resection kaley ins, including the deep margin, are negative for tumor (minimum tumor free margin, 7.0 cm, deep margin). Seen in consultation with Dr. Michelle anderson. E. Lymph node, right axillary sentinel No. 3, sentinel biopsy: A single right axillary sentinel lymph no de without blue dye is negative for metastatic carcinoma [AJCC pN0 (i-) (sn)]. Immunohistochemical cytokeratin stain w as performed on the paraffin embedded sentinel lymph node tissue and confirms the H&E impression. 04/01/2009 16:26 Interpreted by: Darío Hernadez M.D. [phone] Report electronically signed by Darío Acuña M.D. Transcribed by: jacob 03/28/2009 14:38:28 PRELIMINARY FROZEN SECTION CONSULTATION : A, B, E. Lymph nodes; right axillary se ntinel Nos. 1, 2, and 3; sentinel biopsies: Multiple (3) right a xillary sentinel lymph nodes are negative for metastatic carcinoma. Hold over for cytokeratin stains to rule out micrometastases. C. Lymph node, right axillary, biopsy: A single lymph node is negative for metastatic carcinoma. D. Breast, right, simple mastectomy: In filtrating ductal carcinoma, [place] grade I (of III) is identified forming a mass (2.2 x 1.4 x 1.4 cm) located in the maricruz tral aspect of the breast in the subareolar region. A separate fibro tic area (1.6 cm in greatest dimension) consistent with prior biopsy site is identified. All surgical resection margins are negative for tumor. Frozen section histologic interpretatio n performed by: Darío Montes M.D. GROSS DESCRIPTION: A. Received fresh labeled right axilla ry sentinel lymph node #1 is a single 1.4 x 0.6 x 0.3 cm lymph no de. Blue dye is identified in the lymph node. All submitted. Gross ed by WXS. B. Received fresh labeled right axilla ry sentinel lymph node #2 is a single 1.1 x 0.6 x 0.3 cm lymph no de. Blue dye is not identified in the lymph node. All submi tted. Grossed by WXS. C. Received fresh labeled right axilla ry lymph node, palpable is a 1.0 x 0.4 x 0.4 cm lymph node. All ly mphatic tissue submitted. Grossed by WXS. D. Received fresh labeled right breast is a 605.0 gram, 24.5 x 17.0 x 4.5 cm oriented simple mastectom y with a 24.5 x 9.0 cm skin ellipse. A nipple is present. Grossly, there is a single 2.2 x 1.4 x 1.4 cm mass located in the central as pect, 7.0 cm to the nearest (deep) margin. Cream Gatherer sections submitted. Grossed by WXS. E. Received fresh labeled right axilla ry sentinel lymph node #3 is a single 2.2 x 1.6 x 0.7 cm lymph no de. Blue dye is not identified in the lymph node. All submi tted. Grossed by WXS. BLOCK SUMMARY: Part A: Right axilla sentinel lymph nod e #[address] #1 1of[address] #1 2of2 Part B: Right axilla sentinel lymph nod e #[address] #2 1of2 [address] #2 2of2 Part C: Right axillary Lymph Node, palp able 1 Rt axillary lymph node 1 Part D: Right Breast 1 Rt nipple 2 Rt breast cent prior cavity 3 Rt breast med fibrotic area 4 Rt breast tumor 5 Rt breast tumor 6 Rt breast UO 7 Rt breast LO 8 Rt breast LI 9 Rt breast UI Part E: Right axillary sentinel lymph n ode #[address] #3 1of[address] #3 2of2 Salvador Farr M.D. Deepti Kay M.D. LAB PATHOLOGY/CYTOLOGY ORDER ALEKSEY Performing Organization Address City/State/ZIP Code Phon e Number [facility] - [address] [place], [place] [address] [facility] documented in this encounter Visit Diagnoses Not on filedocumented in this encounter
--- OUTSIDE RECORDS SUMMARY | 2022-08-11 09:31 | XMS_ITS | Encounter Summary ---
:1940 Demographics Address [address] [place] [address] Mobile Phone Home Phone Preferred Language ENG Marital Status Advent Affiliation Unknown Race White Ethnic Group Not or Author Organization [facility] Address [address] [place] [address] Care Team Providers Name Role Phone Unavailable Primary Care Provider Unavailable Encounter Details Date Type Department Care Team Description 07/13/2022 Clinical Communication Department of Sleep Sae Barron, Medicine in [place] Michael, M.P .H. [place] [address] [place] [phone] Social History Tobacco Use Types Packs/Day Years Used Date Smoking Tobacco: Never Smokeless Tobacco: Never Sex Assigned at Date Recorded Not on file documented as of this encounter Miscellaneous Notes Telephone Encounter - Kiera Mello L.PDominique - 07/14/2022 4:22 PM CDT Spoke to son Fabricio . MRI of the brain has been scheduled for Wednesday07/20/22. Telephone Encounter - Kiera Mello L.PDominique - 07/14/2022 9:30 AM CDT Message left to return call. Telephone Encounter - Teresa Montoya - 07/13/2022 2:01 PM CDT Reason for Communication: Patient is requesting a call back to discuss an appt in [place] she had missed. Current Can Nursing/Provider leave a detailed message?: Did the patient refuse triage through Nurse line? (for symptom based concerns): Action Needed: Please call to discuss Name of Medication (if relevant): Please send all scheduling replies to scheduling pool. documented in this encounter Plan of Treatment Upcoming Encounters Date Type Specialty Care Team Description 09/16/2022 Office Visit Neurology Sae Barron M.D., M.P.H. [address] [phone] (Wo rk) documented as of this encounter Visit Diagnoses Not on filedocumented in this encounter
--- OUTSIDE RECORDS SUMMARY | 2022-08-11 09:31 | XMS_ITS | Encounter Summary ---
:1940 Demographics Address [address] [place] [address] Mobile Phone Home Phone Preferred Language ENG Marital Status Temple Affiliation Unknown Race White Ethnic Group Not or Author Organization [facility] Address [address] [place] [address] Care Team Providers Name Role Phone Unavailable Primary Care Provider Unavailable Encounter Details Date Type Department Care Team Description 12/29/2017 Hospital Encounter HX RST DERM FLOOR Ozzie Chávez PRACTICE M.D. Social History Tobacco Use Types Packs/Day Years Used Date Smoking Tobacco: Never Sex Assigned at Date Recorded Not on file documented as of this encounter Medications at Time of Discharge Medication Sig Dispensed Refills Start Date End Date calcium carbonate-mag Chew 1 tablet daily. 0 04/2011 hydroxid 1,000-200 mg tablet,chewable [id number] Take 1 tablet by 0 [phone] [...] Visit Neurology Sae Barron M.D., M.P.H. [address] [phone] (Wo rk) documented as of this encounter Visit Diagnoses Not on filedocumented in this encounter
--- OUTSIDE RECORDS SUMMARY | 2022-08-11 09:31 | XMS_ITS | Encounter Summary ---
:1940 Demographics Address [address] [place] [address] Mobile Phone Home Phone Preferred Language ENG Marital Status Druze Affiliation Unknown Race White Ethnic Group Not or Author Organization [facility] Address [address] [place] [address] Care Team Providers Name Role Phone Unavailable Primary Care Provider Unavailable Reason for Visit Outpatient (Routine) - Closed Specialty Diagnoses / Procedures Referred By Contact Refer red To Contact Dermatology Medhat Nunez M.D. [facility] Referral ID Status Reason Start Date Expiration Date Visits Requ ested Visits Authorized [id number] Closed 01/14/2018 07/13/2018 1 1 Encounter Details Date Type Department Care Team Description 07/27/2018 Office Visit Department of Medhat Nunez Pain Ches t Wall (Primary Dx); Dermatology janice Bañuelos M.D. Cutaneous [facility] Lymphoma Unspecified Site (HCC) [place], [place] [address] [place] [address] Social History Tobacco Use Types Packs/Day Years Used Date Smoking Tobacco: Never Sex Assigned at Date Recorded Not on file documented as of this encounter Consult Notes Medhat Nunez M.D. - 07/27/2018 11:40 AM CDT CHIEF COMPLAINT / REASON FOR VISIT Brandon Del Castillo is a 77 y.o. 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 HISTORY OF PRESENT ILLNESS Ms. Brandon Del Castillo is a 77 y.o. 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 Ms. Brandon Del Castillo 's history of present illness can be summarized as follows: HISTORY OF PRESENT ILLNESS Mrs. 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 The patient has been followed by Dr. Middleton in Radiation Oncology and has the following outline of her history. ?? 1. Node negative, 2.3 cm. 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 2. Mammographically detected recurrence right breast January 2009 treated with mastectomy. Histologic exam revealed grade 1 (of 3) mammary cancer which was ER/MO positive, HER-2 negative, four sentinel lymph nodes negative treated with Arimidex. 3. Skin lesions right abdomen and right shoulder noted August 2010. Biopsy on December 24, 2010, reveals follicular center lymphoma from the right abdomen and right posterior shoulder. 4. Bone marrow biopsy February 02, 2011, shows no evidence of lymphoma. 5. PET/CT February 02, 2011, shows mild hypermetabolic activity in the anterior abdominal wall skin, no additional areas of lymphoma are identified. 6. Excision of the abdominal lesion on March 11, 2011. Histologic exam revealed the tumor appeared juvenal completely excised. 7. Radiation therapy to the right shoulder from May 08, 2011, through May 27, 2011, [id number] cGy in 14 fractions. 8. 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 9. Radiation therapy to the left upper back - shoulder area from December 29, 2012, through December 30, 2012, delivering 400 cGy in 2 fractions. 10. Biopsy right chest wall by Dr. Nunez on April 17, 2013. Histologic exam shows cutaneous involvement of follicular center lymphoma. 11. Excision of left lateral back skin lesion by Dr. Nunez on June 18, 2014. Histologic examshows follicular center lymphoma that is completely excised. 12. Evaluated by Dr. cMleod July 25, 2014. She had been on Arimidex for five years in March 2014. Her Arimidex was discontinued. 11/11/2016 No new lesions. General health is stable. 07/27/2018 patient comes in for her 6 month follow-up examination for cutaneous follicular lymphoma.She indicates to me she has had 3 days of sharp pain involving the right upper lateral thorax. The only thing she relates to his having done some yd work 3 weeks earlier, however she did not develop pain until the past 3 days. This is the same side that she had her breast cancer as outlined above. Herfollicular lymphoma was primarily involving her back and she has been relatively free from that problem which has been purely cutaneous. I asked her if she had had the shingles vaccine she said no however she did have childhood chickenpox. She otherwise is not having any trouble breathing or associated fatigue. Allergies Allergen Reactions ??? Aspirin Edema Low blood pressure, rash. ??? Azithromycin Other (see comments) Unknown. ??? Clindamycin Other (see comments) Unknown. ??? Iodinated Contrast- Oral And Iv Dye Other (see comments) Unknown. REVIEW OF SYSTEMS The patient feels well. Denies any weight loss, fevers or recent changes in her state of health. No past medical history on file. Past Surgical History: Procedure Laterality Date ??? INCISION AND DRAINAGE Right 03/28/2009 Incision and drainage of hematoma. Right mastectomy site. ??? MASTECTOMY WITH SENTINEL NODE BIOPSY Right 03/28/2009 Intraoperative injection of blue dye for lymphatic mapping. Right total mastectomy. Right axillary reoperative sentinel node biopsy. Complex closure with quilting sutures. ??? SKIN LESION EXCISION Right 03/11/2011 Excision with intermediate layered closure. Right abdomen cutaneous follicular B-cell lymphoma ??? WIDE LOCAL EXCISION Right 03/18/1999 Right breast wide local excision and axillary node sampling. No family history on file. @PHYSICAL EXAM @ General appearance: The patient is well nourished and aware of surroundings and in no acute distress. Total Exam: included: scalp, face,eyes, ears, neck, mouth, trunk, upper and lower extremities, hands,feet, genitalia, perianal area, hair and nails. Scalp is clear face is clear oral cavity is clear eyes are clear ears are clear. Thorough evaluation of lymph nodes in the cervical occipital axillary sup raclavicular areas are not palpable. The skin in the involved tender area of the upper chest just beneath the inferior margin of the axillary vault extending anteriorly is free from any eruption or erythema. There is no visible eruption involving the shoulders as well. Over the upper mid back she has a single erythematous papule without pustule head. There is no vesiculation of this 1 papule. The remainder of her physical exam was unremarkable showing only seborrheic keratoses and lópez angiomas ASSESSMENT / PLAN Diagnosis Plan 1. Pain Chest Wall valACYclovir (VALTREX) 1000 mg tablet DX Chest AP or PA and Lateral 2 Views 2. Cutaneous Follicle Center Lymphoma Unspecified Site (HCC) I created the following discussion with the patient: I will prescribe Valtrex 1000 mg Q 8 hr in a printed form. Patient is not to have this prescription filled unless she sees blisters or rash developed in the painful area. I did show her multiple photos of zoster. Should she develop such she should begin the medication within 24-48 hours and contact her local physician. I talked about contagiousness especially 2 children, immunosuppressed people, and people. I advised she watch for any breathing difficulties and if such occurs she should contact her primary care doctor. I also asked her to check with her local pharmacy for any drug drug interactions that may occur her since she is unsure of the type of medications that she has been given for high blood pressure and lipids. We did decide to order a chest PA and lateral films because of her past history. I advised she take Tylenol for the present discomfort that she has and she has tolerated Tylenol quite well in the past. I will call her with the results of her x-ray today. @LAB@ I have reviewed the patient's medical history in detail and updated the computerized patient record.The patient was not personally interviewed or examined. The history is based on the clinical documentation provided. CHIEF COMPLAINT / REASON FOR VISIT Theandrew Del Castillo is a 77 y.o. female. Medhat Nunez M.D. requested an eReview to determine if the patient would benefit from traveling to [facility]. documented in this encounter Plan of Treatment Upcoming Encounters Date Type Specialty Care Team Description 09/16/2022 Office Visit Neurology Sae Barron M.D., M.P.H. [address] [phone] (Wo rk) documented as of this encounter Results DX Chest AP or [...] aorta. Mild degenerative change thoracic spine. Medhat Nunez M.D. [facility] documented in this encounter Visit Diagnoses Diagnosis Pain Chest Wall - Primary Cutaneous Follicle Center Lymphoma Unspe cified Site (HCC) Pain Chest Wall documented in this encounter
--- OUTSIDE RECORDS SUMMARY | 2022-08-11 09:31 | XMS_ITS | Encounter Summary ---
:1940 Demographics Address [address] [place] [address] Mobile Phone Home Phone Preferred Language ENG Marital Status Restoration Affiliation Unknown Race White Ethnic Group Not or Author Organization [facility] Address [address] [place] [address] Care Team Providers Name Role Phone Unavailable Primary Care Provider Unavailable Encounter Details Date Type Department Care Team Description 07/27/2018 Clinical Communication Department of Medhat Nunez M.D. [place], [place] [address] [place] [address] Social History Tobacco Use Types Packs/Day Years Used Date Smoking Tobacco: Never Sex Assigned at Date Recorded Not on file documented as of this encounter Miscellaneous Notes Telephone Encounter - Medhat Nunez M.D. - 07/27/2018 2:42 PM CDT I called patient and discussed the chest X-ray results with her. There was no evidence of metastases. I told her slight increase in cardiac size noted since 2013. If the pain persists and no cutaneous eruption develops, then further X- ray can be performed. documented in this encounter Plan of Treatment Upcoming Encounters Date Type Specialty Care Team Description 09/16/2022 Office Visit Neurology Sae Barron M.D., M.P.H. [address] [phone] (Wo rk) documented as of this encounter Visit Diagnoses Not on filedocumented in this encounter
--- OUTSIDE RECORDS SUMMARY | 2022-08-11 09:31 | XMS_ITS | Encounter Summary ---
:1940 Demographics Address [address] [place] [address] Mobile Phone Home Phone Preferred Language ENG Marital Status Denominational Affiliation Unknown Race White Ethnic Group Not or Author Organization [facility] Address [address] [place] [address] Care Team Providers Name Role Phone Unavailable Primary Care Provider Unavailable Encounter Details Date Type Department Care Team Description 05/28/2022 Clinical Communication Department of Sleep Sae Barron, Medicine in Neema Michael, M.P .H. [place] [address] [place], [place] [phone] Social History Tobacco Use Types Packs/Day Years Used Date Smoking Tobacco: Never Smokeless Tobacco: Never Sex Assigned at Date Recorded Not on file documented as of this encounter Miscellaneous Notes Telephone Encounter - Cielo Márquez - 05/28/2022 2:19 PM CDT Would you please put in another order for a MRI for the [facility]. The patient is claustrophobic and will need an open mri machine (if [facility] has them). Thank you. documented in this encounter Plan of Treatment Upcoming Encounters Date Type Specialty Care Team Description 09/16/2022 Office Visit Neurology Sae Barron M.D., M.P.H. [address] [place], [place] [phone] (Wo rk) documented as of this encounter Visit Diagnoses Not on filedocumented in this encounter
--- OUTSIDE RECORDS SUMMARY | 2022-08-11 09:32 | XMS_ITS | Encounter Summary ---
:1940 Demographics Address [address] [place] [address] Mobile Phone Home Phone Preferred Language ENG Marital Status Presybeterian Affiliation Unknown Race White Ethnic Group Not or Author Organization [facility] Address [address] [place] [address] Care Team Providers Name Role Phone Unavailable Primary Care Provider Unavailable Encounter Details Date Type Department Care Team Description 03/18/1999 - 03/19/1999 Hospital Encounter HX RST ROSANGELA 2B Social History Tobacco Use Types Packs/Day Years Used Date Smoking Tobacco: Never Assessed Sex Assigned at Date Recorded Not on file documented as of this encounter Plan of Treatment Upcoming Encounters Date Type Specialty Care Team Description 09/16/2022 Office Visit Neurology Sae Barron M.D., M.P.H. [address] [phone] (Wo rk) documented as of this encounter Procedures Procedure Name Priority Date/Time Associated Diagnosis Comme nts HXGENERAL PATHOLOGY Routine 03/18/1999 11:26 AM R keithults for this REPORT CDT procedure are i n the results section. documented in this encounter Results Hx general Pathology Report (03/18/1999 11:26 AM CDT) Specimen Anatomical Collection Method Collection Time Receive d Time (Source) Location / / Volume Laterality 03/18/1999 11:26 03/18/1999 AM CDT 11:26 AM CDT Narrative [facility] - 03/18/1999 11:26 AM CDT [id number] Surgical Pathology Requested By: ? Darío ford M.D. ?([id number]) ?? TISSUE DESCRIPTION: ?? Tissue from the right breast (7 x 5. 8 x 1.3 cm), superior right breast (3 x 2 x 1 cm), new ?? lateral right breast (No. 1 - 3 x 2 x 1 cm; No. 2 - 3.5 x 2.5 x 1 cm), new medial right breast ?? (4.1 x 1.4 x 1 cm), new superior rig ht breast (3 x 2 x 2 cm), new inferior right breast (3 x ?? 2.5 x 2 cm), new deep right breast ( 4 x 3 x 1 cm) and axillary lymph nodes ?? [id number] A1, A2, A3, A4, A5, A6, A7 , A8, A9, A10, A11, A12, A13, B1 ?? DIAGNOSIS: ? Breast, right, excision: ??Invasi ve, grade 3 (of 4), nuclear grade 2 (of 3) adenocarcinoma, ?? ductal type forming multiple nodules up to 0.5 cm over an area measuring 2.5 x 2 x 2 cm. ? 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 ??Angiolymphatic invasion is not ?? seen. Invasive tumor is seen at the deep margin. ??In-situ tumor is seen at the medial margin. ? Inferior and anterior margin are neg ative. ? Breast, right superior, excision: ??Invasive, grade 3 (of 4), nuclear grade 2 (of 3) forming ?? a 2.3 x 1 x 1 cm mass. ??Ductal carc inoma in-situ forms 60% of the tumor mass. ??Angiolymphatic ?? invasion is not seen. ? Breast, new right lateral, excisi on No. 1 and No. 2: ??Benign breast tissue. ? Breast, new right medial, superio r, inferior, deep excision: ??Negative for tumor, all sites. ? Lymph nodes, right axillary, exci kurt: ??Multiple (2) right axillary lymph nodes are negative ?? for tumor. ? Estrogen and progesterone recepto r studies are positive. ?? [id number] ?Puneet Schmidt M.D.:pjp ?? PRELIMINARY FROZEN SECTION CONSULTAT ION: ? Invasive grade 3 (of 4), nuclear grade 2 (of 3) adenocarcinoma, ductal type. ??Hold for ?? permanent sections. Procedure Note 12/17/2017 18Mar1999 Surgical Pathology Requested By: Darío Meyer M.D. (M [id number]) TISSUE DESCRIPTION: Tissue from the right breast (7 x 5.8 x 1.3 cm), superior right breast (3 x 2 x 1 cm), new lateral right breast (No. 1 - 3 x 2 x 1 cm; No. 2 - 3.5 x 2.5 x 1 cm), new medial right breast (4.1 x 1.4 x 1 cm), new superior right breast (3 x 2 x 2 cm), new inferior right breast (3 x 2.5 x 2 cm), new deep right breast (4 x 3 x 1 cm) and axillary lymph nodes [id number] A1, A2, A3, A4, A5, A6, A7, A 8, A9, A10, A11, A12, A13, B1 DIAGNOSIS: Breast, right, excision: Invasive, grad e 3 (of 4), nuclear grade 2 (of 3) adenocarcinoma, ductal type forming multiple nodules up to 0.5 cm over an area measuring 2.5 x 2 x 2 cm. 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 Angiolymphatic invasion is not seen. Invasive tumor is seen at the love p margin. In-situ tumor is seen at the medial margin. Inferior and anterior margin are negati ve. Breast, right superior, excision: Invas jayro, grade 3 (of 4), nuclear grade 2 (of 3) forming a 2.3 x 1 x 1 cm mass. 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 Angiolymphatic invasion is not seen. Breast, new right lateral, excision No. 1 and No. 2: Benign breast tissue. Breast, new right medial, superior, inf erior, deep excision: Negative for tumor, all sites. Lymph nodes, right axillary, excision: Multiple (2) right axillary lymph nodes are negative for tumor. Estrogen and progesterone receptor stud ies are positive. [id number] Puneet Schmidt M.D.:fany rey PRELIMINARY FROZEN SECTION CONSULTATION : Invasive grade 3 (of 4), nuclear grade 2 (of 3) adenocarcinoma, ductal type. Hold for permanent sections. Darío Meyer M.D. LAB PATHOLOGY/CYTOLOGY ORDER ALEKSEY Performing Organization Address City/State/ZIP Code Phon e Number [facility] - [address] [place], [place] [address] [facility] documented in this encounter Visit Diagnoses Not on filedocumented in this encounter
--- OUTSIDE RECORDS SUMMARY | 2022-08-11 09:32 | XMS_ITS | Encounter Summary ---
:1940 Demographics Address [address] [place] [address] Mobile Phone Home Phone Preferred Language ENG Marital Status Methodist Affiliation Unknown Race White Ethnic Group Not or Author Organization [facility] Address [address] [place] [address] Care Team Providers Name Role Phone Unavailable Primary Care Provider Unavailable Encounter Details Date Type Department Care Team Description 03/13/2009 Hospital Encounter HX RST BREAST [facility]ren[facility]o [facility] [address] [place], [place] [phone] Social History Tobacco Use Types Packs/Day Years Used Date Smoking Tobacco: Never Assessed Sex Assigned at Date Recorded Not on file documented as of this encounter Plan of Treatment Upcoming Encounters Date Type Specialty Care Team Description 09/16/2022 Office Visit Neurology Sae Barron M.D., M.P.H. [address] [phone] (Wo rk) documented as of this encounter Procedures Procedure Name Priority Date/Time Associated Diagnosis Comme nts BI ASPIRATION Routine 03/12/2009 8:38 AM Results for this CDT procedure are i n the results section . documented in this encounter Results BI Aspiration (03/12/2009 8:38 AM CDT) Anatomical Region Laterality Modality Breast N/A Ultrasound Specimen (Source) Anatomical Collection Method Collection Time Re ceived Time Location / / Volume Laterality 03/12/2009 8:38 AM CDT Narrative 03/13/2009 1:35 PM CDT 12-Mar-2009 08:38:00 ??Exam: R MG /@Aspiration Indications: ?? ORIGINAL REPORT - 13-Mar-2009 13:35:00 ULTRASOUND-GUIDED BREAST BIOPSY: PROCEDURE: ??Right axillary FNA. ?? LOCATION: ??Right axilla. ?? CONSENT: Patient seen, evaluated, and hi story reviewed. Discussed risks, benefits, alternatives for procedure, and obtained informed consent. ??Patient understands information and questions answered. Im mediately prior to starting the procedur e, in the presence of the assisting personnel, procedural pause was conducted to verify correct patient identity and verification of procedure to be performed, an d as applicable, correct side and site, correct patient position, availability of implants, special equipment, or special requirements, and all image and specimen identification data. The roles and resp onsibilities of care team members, resid ents, and fellows were discussed. PATIENT EDUCATION: Provided by a care te am member. Brochure # [id number] given to the patient. Ready to learn, no apparent learning barriers were identified; learning preferences include listening. Post -procedure care explained; patient expre ssed understanding of the content. TECHNIQUE: Sterile. Local anesthesia, Li docaine 1% without epinephrine. Ultrasound-guided procedure. BIOPSY DEVICE: ??25 gauge FNA. ?? NUMBER OF PASSES: ??Multiple. ?? SPECIMEN RADIOGRAPH: ??No. ?? MICRO-CLIP: ??No. ?? COMPLICATIONS: ??None. ?? POST-CLIP MAMMOGRAM: ??None. ?? PATHOLOGY: Negative for malignancy. Mixe d lymphoid population, most consistent with reactive lymph node. ?? CONCORDANT: The imaging and pathology fi ndings are concordant. RECOMMENDATIONS: Surgical consultation i s recommended for the known biopsy proven carcinoma of the right breast. Dr. Mays was notified in [facility]. P9.2, SR999 ?? Electronically signed by: ?? Vinnie Medrano M.D. 13-Mar-2009 13:35 Procedure Note Vinnie Medrano M.D. - 12/26/2017Form atting of this note might be different from the original. 12-Mar-2009 08:38:00 Exam: R MG /@Aspira tion Indications: ORIGINAL REPORT - 13-Mar-2009 13:35:00 ULTRASOUND-GUIDED BREAST BIOPSY: PROCEDURE: Right axillary FNA. LOCATION: Right axilla. CONSENT: Patient seen, evaluated, and hi story reviewed. Discussed risks, benefits, alternatives for procedure, and obtained informed consent. Patient understands information and questions answered. Immediately prior to starting the procedure, in the presen ce of the assisting personnel, procedural pause was conducted to verify correct patient identity and verification of procedure to be performed, and as applicable, correct side and site, correct patient position, avai lability of implants, special equipment, or special requirements, and all image and specimen identification data. The roles and responsibilities of care team members, residents, and fellows were discussed. PATIENT EDUCATION: Provided by a care te am member. Brochure # [id number] given to the patient. Ready to learn, no apparent learning barriers were identified; learning preferences include listening. Post-procedure care explained; patient expressed understandi ng of the content. TECHNIQUE: Sterile. Local anesthesia, Li docaine 1% without epinephrine. Ultrasound-guided procedure. BIOPSY DEVICE: 25 gauge FNA. NUMBER OF PASSES: Multiple. SPECIMEN RADIOGRAPH: No. MICRO-CLIP: No. COMPLICATIONS: None. POST-CLIP MAMMOGRAM: None. PATHOLOGY: Negative for malignancy. Mixe d lymphoid population, most consistent with reactive lymph node. CONCORDANT: The imaging and pathology fi ndings are concordant. RECOMMENDATIONS: Surgical consultation i s recommended for the known biopsy proven carcinoma of the right breast. Dr. Mays was notified in [facility]. P9.2, NL SR999 Electronically signed by: Vinnie Medrano M.D. 13-Mar-2009 13:35 Jaylan Mays M.D. IMG BI PROCEDURES documented in this encounter Visit Diagnoses Not on filedocumented in this encounter
[2022-08-11 11:29] LABS: Albumin* 4.3 g/dL (3.3-5.0); Chloride* 107 mmol/L (96-114); Sodium* 141 mmol/L (135-149)
[2022-08-11 11:32] LABS: Alanine Aminotransferase* 12 U/L (4-35); Alkaline Phosphatase* 62 U/L (40-150); Aspartate Amino Transferase* 16 U/L (12-35); Bilirubin Total* 0.9 mg/dL (0.1-1.5); Blood Urea Nitrogen* 21 mg/dL (7-30); Carbon Dioxide* 29 mmol/L (20-32); Cholesterol* 159 mg/dL (90-199); Creatinine* 0.6 mg/dL (0.5-1.5); Estimated Glomerular Filt Rate 90 ml/min; Glucose* 132 mg/dL (60-115); Total Protein* 6.9 g/dL (6.0-8.3); Triglycerides* 80 mg/dL (40-149)
[2022-08-11 11:33] LABS: Calcium* 9.5 mg/dL (8.4-10.6); HDL Cholesterol* 69 mg/dL (>=50); LDL Cholesterol Calculated 74 mg/dL (<100); Microalbumin Creatinine Ratio 120 mg/g (0-30); Microalbumin Urine 7 mg/dL
== END 2022-08-11 17:47 | disposition home or self-care (01) ==
PROVIDERS: PCP Family Medicine; Visit Provider Family Medicine
DX: E78.5 Hyperlipidemia, unspecified (principal); E11.9 Type 2 diabetes mellitus without complications; I10 Essential (primary) hypertension
CPT/HCPCS: 80053; 80061; 82043; 82570

== ENCOUNTER 2022-08-13 09:12 | Outpatient (CLI) | payer MEDICARE, BC, SELFPAY ==
--- OUTSIDE RECORDS SUMMARY | 2022-09-07 19:41 | XMS_ITS | Clinical Summary ---
:1940 Author Organization [facility] [place] [address] Care Team Providers Name Role Phone Jackelin Morales Unavailable Leda Anderson MD Primary Care Provider [phone] Allergies Active Allergy Reactions Severity Noted [...] Take 1 tablet by 0 07/25/2014 Active ([id number] mouth. ) 333-133-5 mg tablet irbesartan (AVAPRO) [...] Planning discussion complet ed with Theologia Topher Najera and her Health Care Agent and son, Jaison Najera on 10/08/2011 at [facility]. Patient and family provided with: Janes johnson Care Planning Discussion Guide, a second copy of a Health Care Directive and booklet, Hard Choices for [place] People, for their review. Goals and Values: Patient/family identified factors that m ay influence treatment preferences: ?? Personal values and goals: Very stron g druze beliefs and need to allow God's will,God [...] such as a ventilator/respirator, feeding tube, etc., FDC. Was unable to define a timeline for a li mited trial, needs to discuss with her family further. Reviewed CPR fact sheet with [facility]. If she had a sudden event that [...] directive and schedule a return appointment with behavioral health worker to review her advance care plan. [facility]rew [...] menopause 11/17/2006 Calculus of kidney 11/17/2006 Overview: 1994 Follicular lymphoma Overview: skin biopsy Encounters Date Type Specialty Care Team Description 08/15/2022 Orders Only 2 scans: (2-Ord ) ECHO COMPLETE W BUBB LE WO CONTRAST ([id number]) 07/03/2022 Office Visit Ronald Nichols CV Lisa ctrophysiology New (Ref MD from [facility] (P VC's). Pt states no curre nt symptoms. Questions rhys rning stroke in February) 07/03/2022 Travel from Last 3 Months Immunizations Name Administration [...] Mother Relation Name Status Comments Brother 1 [place] Brother 2 stroke Brother 3 Alive Brother 4 Alive Brother 5 Brother 6 Brother 7 Father Maternal Aunt Mother Sister 1 [place] Sister 2 Alive Sister 3 Alive Sister 4 Alive Social History Tobacco Use Types Packs/Day Years Used Date Smoking Tobacco: Never Smokeless Tobacco: Never Tobacco Cessation: Counseling Given: Yes Alcohol Use [...] wt on same day) for 07/03/2023 07/03/2022, 04/29, age 18+ 02/15/2019, Additional history exists Tetanus booster 03/09/2026 03/09/2016, 03/04/2006 DEXA/DXA scan for age 65+ Completed 06/29/2013, 03/01/2012 , 02/27/2011, Additional history exists Pneumococcal series for age 65+ Completed 03/09/2016, 09/2006 Tdap Completed 03/09/2016, 03/04/2006 Procedures Procedure Name Priority Date/Time Associated Diagnosis Comme nts ECHO COMPLETE W Routine 08/15/2022 10:45 AM CVA (cerebral Resu lts for this BUBBLE WO CONTRAST WHITEWATER RAFTING GUIDE vascular accident) pro cedure are in (HC) the results section. from Last 3 Months Results ECHO COMPLETE W BUBBLE WO CONTRAST (08/15/2022 10:45 AM WHITEWATER RAFTING GUIDE) P athologist Signature AORTIC VALVE 11 mmHg MEAN PG EJECTION 71 % FRACTION PEAK TR 2.8 m/s VELOCITY LVEDD 4.7 cm Anatomical Region Laterality Modality HEART Ultrasound Specimen (Source) Anatomical Collection Method Collection Time Re ceived Time Location / / Volume Laterality 08/15/2022 9:59 AM WHITEWATER RAFTING GUIDE Narrative 08/15/2022 11:57 AM WHITEWATER RAFTING GUIDE ECHOCARDIOGRAM THEOLOGIA B PITSAVAS ?Accessio n#: ?? [id number] : ?1940 81 years Study Date: ?? 08/15/2022 9:59:21 AM Gender: F ? BP: ? 153/97 mmHg Height: 152.00 cm ? BSA: ?1.63 m? ?? Weight: 66.00 kg ?Tech: ? MCK ?R shilo JOHN: MEME NICOLE Site: ? [facility] Reading Location: [place] Procedure: 2D w/ Bubbles, Color Doppler and Spectral Doppler. Indication for study: CVA Cardiac Rhythm: Regular and with prematu re ventricular contractions.Study quality: Good. Final Impressions: 1. Normal left ventricular size, border line wall thickness, normal global systolic function, calculated EF of 71 %. 2. Grade 2 pattern of LV diastolic fill ing. 3. Right ventricular cavity size is mil dly enlarged, global systolic function is normal. 4. Moderately enlarged left atrium. 5. The aortic valve is trileaflet and s clerotic, no stenosis and no regurgitation. 6. The mitral valve is normal, mild maite ral regurgitation. 7. Mild-moderate tricuspid regurgitatio n. 8. The ascending aorta is dilated with a maximal diameter of 4.1 cm. 9. Increased left atrial pressure. 10. Negative bubble study. 11. Normal estimated pulmonary pressures by tricuspid regurgitation velocity and right atrial pressure (32 mmHg plus RAP). Comparison Compared to prior exam of 01/30/2022, ther e has been no significant change. Chamber Sizes and Function Normal left ventricular size, borderline wall thickness, normal global systolic function, calculated EF of 71 %. Left atrial size is moderately enlarged. Left atrial pressure is increased. Right ventric ular cavity size is mildly enlarged, mike bal systolic RV function is normal. RV wall thickness is normal. The right atrium is moderately enlarged. Right atrial volume index is 47 ml/m? ??. Right atrial a alice is 24 cm? ??. The pulmonary artery is of normal size and origin. The sinus of Valsalva is normal sized. The ascending aorta is dilated. Valves, RV Pressures and Diastolic Funct ion The aortic valve is trileaflet and scler otic, no stenosis and no regurgitation. The mitral valve is normal in structure, mild mitral regurgitation. Spectral Doppler shows Grade 2 pattern of LV diastolic filling. The tricuspid valve is normal in structure. Tricuspid regurgitation is mild-moderate. The tricuspid regurgitant velocity is 2.8 m/s, the estimated right ventricular systolic pressure is 32 mmH g plus right atrial pressure. There is n ormal estimated pulmonary pressure by tricuspid regurgitation velocity and right atrial pressure. The pulmonic valve is normal. No pulmonary regurgitation. Masses, Effusion, Shunts There is no pericardial effusion. There is a significant pericardial fat pad present. The inferior vena cava is normal sized, respiratory size variation greater than 50%. Agitated saline injection showe d no right to left shunt at rest or foll owing Valsalva manuever. No left to right shunting was detected by limited color flow Doppler interrogation of the interatrial septum. MEASUREMENTS AND CALCULATIONS 2-D Measurements and LV Function: LVID (d) 4.7 cm Planimetered EF 71 % LVID (s) 2.8 cm LV FS% (2D) ? 40 % IVS (d) ??1.2 cm LVOT diameter ?? 1.9 cm LVPW (d) 1.2 cm HR ?6 3 bpm Ao Sinus 3.2 cm LA Vol index ?44 ml/ m2 Asc Ao ?? 4.1 cm RA Vol index ?47 ml /m2 LA ? 4.2 cm RA area ? 2 4 cm?RV Max 4C (d) ?? 2.9 cm Diastology: Mitral ?Tissue Doppler ?Pulmonary veins E Peak 1.2 m/s ??e', Septum ? 0.06 m /s Pulm s ?93.1 cm/s A Peak 0.9 m/s ??e', Lateral ?0.07 m /s Pulm d ?93.6 cm/s E/A ?1.4 ?E/e' Average ?? 18. 77 ?Pulm s/d ratio ??0.99 DT ? 193 msec IVRT ?? 72 msec Aortic Valve: Vmax ? 2.4 m/s ??EMMANUEL (V) ?? 1.73 cm? ?? VTI ?0.54 m ?? EMMANUEL (I ) ?? 1.69 cm? ?? LVOT V max ? 1.4 m/s ??Max PG ?23 mmHg LVOT VTI ? 0.31 m ?? Mean PG ? ? 11 mmHg SV ? 90 ml ?Dim I ndex 0.57 SV index ? 56 ml/m? ?? CO ?5.7 l/min AV Ejection Time 0.32 sec CI ? 3.5 l/min/m? ?? AV Flow Rate ? 284 ml/s Mitral Valve: MVA ?3.9 cm? ?? MR TVI 1.98 m MV P 1/2 56 msec Tricuspid Valve and estimated PA pressur es: TR Vmax 2.8 m/s TAPSE 3.8 cm TR maxG 32 mmHg . This study was interpreted by an [facility] redited facility. CC: [facility], Med/ Surg - IP [facility]. ??Final ?? Procedure Note Ceasar Butler, [facility] - 08/15/2022Formatt ing of this note might be different from the original. ECHOCARDIOGRAM BRANDON NAJERA : 1940 81 years Study Date: 08/15 9:59:21 AM Gender: F BP: 153/97 mmHg Height: 152.00 cm BSA: 1.63 m? ?? Weight: 66.00 kg Tech: JAEL Referring MD: MEME NICOLE Site: [facility] Reading Location: [place] Procedure: 2D w/ Bubbles, Color Doppler and Spectral Doppler. Indication for study: CVA Cardiac Rhythm: Regular and with prematu re ventricular contractions.Study quality: Good. Final Impressions: 1. Normal left ventricular size, border line wall thickness, normal global systolic function, calculated EF of 71 %. 2. Grade 2 pattern of LV diastolic fill ing. 3. Right ventricular cavity size is mil dly enlarged, global systolic function is normal. 4. Moderately enlarged left atrium. 5. The aortic valve is trileaflet and s clerotic, no stenosis and no regurgitation. 6. The mitral valve is normal, mild maite ral regurgitation. 7. Mild-moderate tricuspid regurgitatio n. 8. The ascending aorta is dilated with a maximal diameter of 4.1 cm. 9. Increased left atrial pressure. 10. Negative bubble study. 11. Normal estimated pulmonary pressures by tricuspid regurgitation velocity and right atrial pressure (32 mmHg plus RAP). Comparison Compared to prior exam of 01/30/2022, ther e has been no significant change. Chamber Sizes and Function Normal left ventricular size, borderline wall thickness, normal global systolic function, calculated EF of 71 %. Left atrial size is moderately enlarged. Left atrial pressure is increased. Right ventricular cavity size is mildly enlarged, global systolic RV f unction is normal. RV wall thickness is normal. The right atrium is moderately enlarged. Right atrial volume index is 47 ml/m? ??. Right atrial area is 24 cm? ??. The pulmonary artery is of normal size and origin. The sinus of Valsalva is normal sized. The ascending aorta is dilated. Valves, RV Pressures and Diastolic Funct ion The aortic valve is trileaflet and scler otic, no stenosis and no regurgitation. The mitral valve is normal in structure, mild mitral regurgitation. Spectral Doppler shows Grade 2 pattern of LV diastolic filling. The tricuspid valve is normal i n structure. Tricuspid regurgitation is mild-moderate. The tricuspid regurgitant velocity is 2.8 m/s, the estimated right ventricular systolic pressure is 32 mmHg plus right atrial pressure. There is normal e stimated pulmonary pressure by tricuspid regurgitation velocity and right atrial pressure. The pulmonic valve is normal. No pulmonary regurgitation. Masses, Effusion, Shunts There is no pericardial effusion. There is a significant pericardial fat pad present. The inferior vena cava is normal sized, respiratory size variation greater than 50%. Agitated saline injection showed no right to left shunt at rest or following Valsalva manuever. No left to right shunting was detected by limited color flow Doppler interrogation of the interatrial septum. MEASUREMENTS AND CALCULATIONS 2-D Measurements and LV Function: LVID (d) 4.7 cm Planimetered EF 71 % LVID (s) 2.8 cm LV FS% (2D) 40 % IVS (d) 1.2 cm LVOT diameter 1.9 cm LVPW (d) 1.2 cm HR 63 bpm Ao Sinus 3.2 cm LA Vol index 44 ml/m2 Asc Ao 4.1 cm RA Vol index 47 ml/m2 LA 4.2 cm RA area 24 cm? ?? RV Max 4C (d) 2.9 cm Diastology: Mitral Tissue Doppler Pulmonary veins E Peak 1.2 m/s e', Septum 0.06 m/s Pulm s 93.1 cm/s A Peak 0.9 m/s e', Lateral 0.07 m/s Pulm d 93.6 cm/s E/A 1.4 E/e' Average 18.77 Pulm s/d rati o 0.99 DT 193 msec IVRT 72 msec Aortic Valve: Vmax 2.4 m/s EMMANUEL (V) 1.73 cm? ?? VTI 0.54 m EMMANUEL (I) 1.69 cm? ?? LVOT V max 1.4 m/s Max PG 23 mmHg LVOT VTI 0.31 m Mean PG 11 mmHg SV 90 ml Dim Index 0.57 SV index 56 ml/m? ?? CO 5.7 l/min AV Ejection Time 0.32 sec CI 3.5 l/min/m ? ?? AV Flow Rate 284 ml/s Mitral Valve: MVA 3.9 cm? ?? MR TVI 1.98 m MV P 1/2 56 msec Tricuspid Valve and estimated PA pressur es: TR Vmax 2.8 m/s TAPSE 3.8 cm TR maxG 32 mmHg . This study was interpreted by an [facility] acc redited facility. CC: [facility], Med/ Surg - IP [facility]. Final Meme Nicole MD ECHO ORD from Last 3 Months Insurance Payer Benefit Plan / Subscriber ID Effective Dates Phone Addre ss Type Group MEDICARE PART B MEDICARE PART B [id number] 2005-Presen ATTN: CLAIMS - HB USE ONLY HB ONLY t [address] [place] [address] BLUE CROSS MR BLUE CROSS [id number] 2016-Presen [address] [address] [place], [place] [id number] BLUE CROSS BLUE CROSS [id number] 2016-[place] [address] [address] [place] [address], [place] [id number] [phone] (Work) Advance Directives Documents on File Type Date Recorded Patient Psych Rn Explanati on Healthcare Directive 12/03/2011 ACP Care Teams Nurse Staff Industrial Relationship Specialty Start Date End Date Leda Anderson MD PCP - General Family Practice 06/13/201999 [place] [address] Jackelin Morales Internal Medicine 03/01/[address] [place] [phone]
--- OUTSIDE RECORDS SUMMARY | 2022-09-07 19:42 | XMS_ITS | Encounter Summary ---
:1940 Demographics Address [address] [place] [address] Mobile Phone Home Phone Preferred Language ENG Marital Status Latter-Day Affiliation Unknown Race White Ethnic Group Not or Author Organization [facility] Address [address] [place] [address] Care Team Providers Name Role Phone Unavailable [...] Neurology Sae Barron M.D., M.P.H. [address] [place] [phone] (Wo rk) documented as of this encounter Procedures Procedure Name Priority Date/Time Associated Comments Diagnosis DERMATOLOGY IMAGE Routine 03/23/2019 12:05 Result s for this EXAM PM CDT procedure are i n the results section. documented in this encounter Results back, right lumbar 228-Dermatology Image Exam (03/23/2019 12:05 PM CDT) Specimen (Source) Anatomical Collection Method Collection Time Re ceived Time Location / / Volume Laterality 03/23/2019 12:00 PM CDT Narrative [facility] - 03/23/2019 3:24 PM CDT This order has been created [...]
--- OUTSIDE RECORDS SUMMARY | 2022-09-07 19:42 | XMS_ITS | Encounter Summary ---
:1940 Demographics Address [address] [place] [address] Mobile Phone Home Phone Preferred Language ENG Marital Status Lutheran Affiliation Unknown Race White Ethnic Group Not or Author Organization [facility] Address [address] [place] [address] Care Team Providers Name Role Phone Unavailable Primary Care Provider Unavailable Reason for Visit Outpatient (Routine) - Closed Specialty Diagnoses / Procedures Referred By Contact Refer red To Contact Dermatology Medhat Nunez M.D. [facility] Referral ID Status Reason Start Date Expiration Date Visits Requ ested Visits Authorized [id number] Closed 01/14/2018 07/13/2018 1 1 Encounter Details Date Type Department Care Team Description 07/27/2018 Office Visit Department of Medhat Nunez Pain Ches t Wall (Primary Dx); Dermatology janice Bañuelos M.D. Cutaneous [facility] Lymphoma Unspecified Site (HCC) [place], [place] [address] [place] [address] Social History Tobacco Use Types Packs/Day Years [...] right breast radiation therapy, and tamoxifen at [facility] in [place]. 2. Mammographically detected recurrence right breast January 2009 treated with mastectomy. Histologic exam revealed grade 1 (of 3) mammary cancer which was ER/NM positive, HER-2 negative, four sentinel lymph nodes [...] May 08, 2011, through May 27, 2011, [id number] cGy in 14 fractions. 8. Left upper [...] is completely excised. 12. Evaluated by Dr. Mcleod July 25, 2014. She had been on [...] the patient would benefit from traveling to [facility]. documented in this encounter Plan of Treatment Upcoming Encounters Date Type Specialty Care Team Description 09/16/2022 Office Visit Neurology Sae Barron M.D., M.P.H. [address] [phone] (Wo rk) documented as [...]
--- OUTSIDE RECORDS SUMMARY | 2022-09-07 19:42 | XMS_ITS | Encounter Summary ---
:1940 Demographics Address [address] [place] [address] Mobile Phone Home Phone Preferred Language ENG Marital Status Quaker Affiliation Unknown Race White Ethnic Group Not or Author Organization [facility] Address [address] [place] [address] Care Team Providers Name Role Phone Unavailable Primary Care Provider Unavailable Encounter Details Date Type Department Care Team Description 05/28/2022 Clinical Communication Department of Sleep Sae Barron, Medicine in Neema Michael, M.P .H. [place] [address] [place], [place] [phone] Social History Tobacco Use Types Packs/Day Years Used Date Smoking Tobacco: Never Smokeless Tobacco: Never Sex Assigned at Date Recorded Not on file documented as of this encounter Miscellaneous Notes Telephone Encounter - Cielo Márquez - 05/28/2022 2:19 PM CDT Would you please put in another order for a MRI for the [facility]. The patient is claustrophobic and will need an open mri machine (if [facility] has them). Thank you. documented in this encounter Plan of Treatment Upcoming Encounters Date Type Specialty Care Team Description 09/16/2022 Office Visit Neurology Sae Barron M.D., M.P.H. [address] [place], [place] [phone] (Wo rk) documented as of this encounter Visit Diagnoses Not on filedocumented in this encounter
--- OUTSIDE RECORDS SUMMARY | 2022-09-07 19:42 | XMS_ITS | Encounter Summary ---
:1940 Demographics Address [address] [place] [address] Mobile Phone Home Phone Preferred Language ENG Marital Status Confucianism Affiliation Unknown Race White Ethnic Group Not or Author Organization [facility] Address [address] [place] [address] Care Team Providers Name Role Phone Unavailable [...] Visit Neurology Sae Barron M.D., M.P.H. [address] [phone] (Wo rk) documented [...] base. Electronically signed by: ?? Shonrosey Escobarca [phone] [id number] 28-Mar-20 09 23:20 I have reviewed [...] lung base. Electronically signed by: Shon Reynaga [phone] [id number] 28-Mar-20 09 23:20 I have reviewed [...] for PO purposes. Electronically signed by: ?? Mary Eckert MD. ??[id number] 28-Mar-2009 13:2 3 Procedure [...] purposes. Electronically signed by: Mary Eckert MD. [id number] 28-Mar-2009 13:23 Deepti Kay M.D. IMG DIAGNOSTIC IMAGING PROCE JESÚS Hx general Pathology Report (03/28/2009 10:53 AM CDT) Specimen Anatomical Collection Method Collection Time Receive d Time (Source) Location / / Volume Laterality 03/28/2009 10:53 03/28/2009 AM CDT 10:53 AM CDT Narrative [facility] - 03/28/2009 10:53 AM CDT ?03/28/2009 Surgical Pathology ?([id number]) ? Requested By: ??Deepti Kay M.D. ??[phone] ?DIAGNOSIS: ?? A. ??Lymph node, right axillary [...] 04/01/2009 16:26 Interpreted by: Darío Hernadez M.D. [phone] Report electronically signed by Daroí Acuña M.D. 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 ??Hedis Manager section s submitted. ??Grossed by WXS. ?? [...] ? Procedure Note 12/18/2017 03/28/2009 Surgical Pathology ([id number]) Requested By: Deepti Kay M.D. [phone] DIAGNOSIS: A. Lymph node, right axillary [...] right, simple mastectomy: In filtrating ductal carcinoma, [place] grade I (of III) is identified forming [...] 7.0 cm to the nearest (deep) margin. Hedis Manager sections submitted. Grossed by WXS. E. Received [...] Organization Address City/State/ZIP Code Phon e Number [facility] - [address] [place], [place] [address] [facility] documented in this encounter Visit Diagnoses Not on filedocumented in this encounter
--- OUTSIDE RECORDS SUMMARY | 2022-09-07 19:42 | XMS_ITS | Encounter Summary ---
:1940 Demographics Address [address] [place] [address] Mobile Phone Home Phone Preferred Language ENG Marital Status Spiritism Affiliation Unknown Race White Ethnic Group Not or Author Organization [facility] Address [address] [place] [address] Care Team Providers Name Role Phone Unavailable Primary Care Provider Unavailable Encounter Details Date Type Department Care Team Description 07/13/2022 Clinical Communication Department of Sleep Sae Barron, Medicine in Neema [place], M.P .H. [place] [address] [place] [phone] Social History Tobacco Use Types Packs/Day Years [...] call back to discuss an appt in [place] she had missed. Current Can Nursing/Provider leave [...] Visit Neurology Sae Barron M.D., M.P.H. [address] [place] [phone] (Wo rk) documented as of this encounter Visit Diagnoses Not on filedocumented in this encounter
--- OUTSIDE RECORDS SUMMARY | 2022-09-07 19:42 | XMS_ITS | Encounter Summary ---
:1940 Demographics Address [address] [place] [address] Mobile Phone Home Phone Preferred Language ENG Marital Status Rastafarian Affiliation Unknown Race White Ethnic Group Not or Author Organization [facility] Address [address] [place] [address] Care Team Providers Name Role Phone Unavailable Primary Care Provider Unavailable Encounter Details Date Type Department Care Team Description 03/11/2011 Hospital Encounter HX RST DERM SURG OP [facility] Sugey Nunez M.D. [address] [facility] [address] [place] [address] (Wo rk) Social History Tobacco Use Types [...] Visit Neurology Sae Barron M.D., M.P.H. [address] [phone] (Wo rk) documented as of this encounter Visit Diagnoses Not on filedocumented in this encounter
--- OUTSIDE RECORDS SUMMARY | 2022-09-07 19:42 | XMS_ITS | Encounter Summary ---
:1940 Demographics Address [address] [place] [address] Mobile Phone Home Phone Preferred Language ENG Marital Status Zoroastrianism Affiliation Unknown Race White Ethnic Group Not or Author Organization [facility] Address [address] [place] [address] Care Team Providers Name Role Phone Unavailable Primary Care Provider Unavailable Reason for Visit Appointment Request (Routine) - Closed Specialty Diagnoses / Procedures Referred By Contact Refer red To Contact Dermatology Referral ID Status Reason Start Date Expiration Date Visits Requ ested Visits Authorized [id number] Closed 02/21/2019 02/21/2020 1 Encounter Details Date Type Department Care Team Description 03/23/2019 Comprehensive Visit Department of Robin Murillo Follicle Dermatology in Rodriguez Mallory M.D., [place], [place] Ph.D. Unspecified Site [address] [place] [address] ([facility]) (Primary Dx) [place] [address] Social History Tobacco Use Types Packs/Day Years [...] and PET scan I will ask the online affiliate marketing manager to weigh on this by An econsult. I informed the patient that I will do that and I will communicate with her hopefully before she leaves to [facility] on the 05 of April documented in this encounter Plan of Treatment Upcoming Encounters Date Type Specialty Care Team Description 09/16/2022 Office Visit Neurology Sae Barron M.D., M.P.H. [address] [place], [place] [phone] (Wo rk) Scheduled Orders [...] RADIOPHARMACEUTICAL/MEDS: Route: intravenous fludeoxyglucose F 18 injection ALF (FDG F-18),9.9 millicurie TECHNIQUE: ??F-18 FDG PET/CT [...] RADIOPHARMACEUTICAL/MEDS: Route: intravenous fludeoxyglucose F 18 injection ALF (FDG F-18),9.9 millicurie TECHNIQUE: F-18 FDG PET/CT [...] relapsed lymphom a. Rodriguez Murillo M.D., Ph.D. [facility] PROCEDURES documented in this encounter Visit Diagnoses Diagnosis [facility]aneous [facility] Lymphoma Unspe cified Site (HCC) - Primary Cutaneous [facility] Lymphoma Unspe cified Site (HCC) documented in this encounter
--- OUTSIDE RECORDS SUMMARY | 2022-09-07 19:42 | XMS_ITS | Encounter Summary ---
:1940 Demographics Address [address] [place] [address] Mobile Phone Home Phone Preferred Language ENG Marital Status Mormonism Affiliation Unknown Race White Ethnic Group Not or Author Organization [facility] Address [address] [place] [address] Care Team Providers Name Role Phone Unavailable Primary Care Provider Unavailable Encounter Details Date Type Department Care Team Description 07/27/2018 Clinical Communication Department of Medhat Nunez M.D. [place], [place] [address] [place] [address] Social History Tobacco Use Types Packs/Day Years [...] Neurology Sae Barron M.D., M.P.H. [address] [phone] (Wo rk) documented as of this encounter Visit Diagnoses Not on filedocumented in this encounter
--- OUTSIDE RECORDS SUMMARY | 2022-09-07 19:42 | XMS_ITS | Encounter Summary ---
:1940 Demographics Address [address] [place] [address] Mobile Phone Home Phone Preferred Language ENG Marital Status Denominational Affiliation Unknown Race White Ethnic Group Not or Author Organization [facility] Address [address] [place] [address] Care Team Providers Name Role Phone Unavailable Primary Care Provider Unavailable Encounter Details Date Type Department Care Team Description 03/28/2019 Clinical Communication Department of Lidia Wade M.D. Dermatology in [address] [place] [address] [address] [facility] [address] [place], [place] [phone] (Work) [phone] Social History Tobacco Use Types Packs/Day Years Used Date Smoking Tobacco: Never Sex Assigned at Date Recorded Not on file documented as of this encounter Miscellaneous Notes Telephone Encounter - Ldiia Wade M.D. - 03/28/2019 5:02 PM CDT [...] Visit Neurology Sae Barron M.D., M.P.H. [address] [phone] (Wo rk) documented as of this encounter Visit Diagnoses Not on filedocumented in this encounter
--- OUTSIDE RECORDS SUMMARY | 2022-09-07 19:42 | XMS_ITS | Encounter Summary ---
:1940 Demographics Address [address] [place] [address] Mobile Phone Home Phone Preferred Language ENG Marital Status Baptist Affiliation Unknown Race White Ethnic Group Not or Author Organization [facility] Address [address] [place] [address] Care Team Providers Name Role Phone Unavailable Primary Care Provider Unavailable Encounter Details Date Type Department Care Team Description 03/23/2019 Procedure visit Department of Lidia Wade M.D . 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 Rios Everett M.D. Ip Litigation Associate: Dr. Lidia Wade M.D. Location: [facility]: Floor:16 Room:[facility] Visit Type: Outpatient PostOp Diagnosis: Tumor of [...] DERMATOLOGY NOTE Supervised by: Dr. Rios Everett ([phone]). Patient seen and discussed with supervising it web development consultant, Dr. Everett, who evaluated the patient [...] the patient by letter. Patient given pamphlet [id number]. INFORMED CONSENT Discussed the risks, benefits, alternatives, [...] Office Visit Neurology Sae Barron M.D., M.P.H. [address] [phone] (Wo rk) documented as of this encounter Procedures Procedure Name Priority Date/Time Associated Diagnosis Comme nts DERMATOPATHOLOGY Routine 03/23/2019 10:08 AM Cutaneous Follicl e Results for this CDT Center Lymphoma procedure ar e in Unspecified Site the results (HCC) section. 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
--- OUTSIDE RECORDS SUMMARY | 2022-09-07 19:42 | XMS_ITS | Encounter Summary ---
:1940 Demographics Address [address] [place] [address] Mobile Phone Home Phone Preferred Language ENG Marital Status Scientologist Affiliation Unknown Race White Ethnic Group Not or Author Organization [facility] Address [address] [place] [address] Care Team Providers Name Role Phone Unavailable Primary Care Provider Unavailable Encounter Details Date Type Department Care Team Description 03/13/2009 Hospital Encounter HX RST BREAST HighrBenda melo R.NBill [address] [place], [place] [phone] Social History Tobacco Use Types Packs/Day Years Used Date Smoking Tobacco: Never Assessed Sex Assigned at Date Recorded Not on file documented as of this encounter Plan of Treatment Upcoming Encounters Date Type Specialty Care Team Description 09/16/2022 Office Visit Neurology Sae Barron M.D., M.P.H. [address] [phone] (Wo rk) documented as [...] right breast. Dr. Mays was notified in [facility]. P9.2, SR999 ?? Electronically signed by: ?? [...] right breast. Dr. Mays was notified in [facility]. P9.2, NL SR999 Electronically signed by: Vinnie Medrano M.D. 13-Mar-2009 13:35 Jaylan Mays M.D. IMG BI PROCEDURES documented in this encounter Visit Diagnoses Not on filedocumented in this encounter
--- OUTSIDE RECORDS SUMMARY | 2022-09-07 19:42 | XMS_ITS | Encounter Summary ---
:1940 Demographics Address [address] [place] [address] Mobile Phone Home Phone Preferred Language ENG Marital Status Oriental Orthodox Affiliation Unknown Race White Ethnic Group Not or Author Organization [facility] Address [address] [place] [address] Care Team Providers Name Role Phone Unavailable Primary Care Provider Unavailable Encounter Details Date Type Department Care Team Description 07/01/2022 Orders Only Department of Neurology in Sae aBrron M.D., [place], [place] M.P.H. [address] [place] [address] [address] [place] [address] [place], [place] [phone] (Wo rk) Social History Tobacco Use Types Packs/Day Years Used Date Smoking Tobacco: Never Smokeless Tobacco: Never Sex Assigned at Date Recorded Not on file documented as of this encounter Plan of Treatment Upcoming Encounters Date Type Specialty Care Team Description 09/16/2022 Office Visit Neurology Sae Barron M.D., M.P.H. [address], [place] [phone] (Wo rk) documented as of this encounter Visit Diagnoses Not on filedocumented in this encounter
--- OUTSIDE RECORDS SUMMARY | 2022-09-07 19:42 | XMS_ITS | Encounter Summary ---
:1940 Demographics Address [address] [place] [address] Mobile Phone Home Phone Preferred Language ENG Marital Status Jainism Affiliation Unknown Race White Ethnic Group Not or Author Organization [facility] Address [address] [place] [address] Care Team Providers Name Role Phone Unavailable [...] Visit Neurology Sae Barron M.D., M.P.H. [address] [phone] (Wo rk) documented as of this encounter Visit Diagnoses Not on filedocumented in this encounter
--- OUTSIDE RECORDS SUMMARY | 2022-09-07 19:42 | XMS_ITS | Encounter Summary ---
:1940 Demographics Address [address] [place] [address] Mobile Phone Home Phone Preferred Language ENG Marital Status Baptism Affiliation Unknown Race White Ethnic Group Not or Author Organization [facility] Address [address] [place] [address] Care Team Providers Name Role Phone Unavailable [...] daily. 0 04/2011 hydroxid 1,000-200 mg tablet,chewable mguinnh-xauvihutc-wjja Take 1 tablet by 0 014 333-133-5 [...] Visit Neurology Sae Barron M.D., M.P.H. [address] [phone] (Wo rk) documented as of this encounter Visit Diagnoses Not on filedocumented in this encounter
--- OUTSIDE RECORDS SUMMARY | 2022-09-07 19:42 | XMS_ITS | Encounter Summary ---
:1940 Demographics Address [address] [place] [address] Mobile Phone Home Phone Preferred Language ENG Marital Status Sikhism Affiliation Unknown Race White Ethnic Group Not or Author Organization [facility] Address [address] [place] [address] Care Team Providers Name Role Phone Unavailable Primary Care Provider Unavailable Reason for Referral Outpatient (Routine) - Closed Specialty Diagnoses / Procedures Referred By Contact Refer red To Contact Diagnoses Stroke Cerebrovascular Accident Personal History [facility]ae [facility]ron M.D., [facility] [place] [facility] Procedures US Carotid Bilateral M.P.H. [address] [place] [address] Referral ID Status Reason Start Date Expiration Date Visits Requ ested Visits Authorized [id number] Closed 05/28/2022 05/28/2023 1 1 Reason for Visit Outpatient (Routine) - Closed Specialty Diagnoses / Procedures Referred By Contact Refer red To Contact Diagnoses Stroke Cerebrovascular Accident Personal History Sae Barron M.D., [facility] [place] Procedures US Carotid Bilateral M.P.H. [address] [place] [address] Referral ID Status Reason Start Date Expiration Date Visits Requ ested Visits Authorized [id number] Closed 05/28/2022 05/28/2023 1 1 Encounter Details Date Type Department Care Team Description 06/15/2022 Hospital Encounter Department of Sae Barron Stroke C erebrovascular Radiology in [place], Accident Person caitlyn Michael M.P.H. History [place] [address] [place] [address] [place] [phone] Social History Tobacco Use Types Packs/Day Years Used Date Smoking Tobacco: Never Smokeless Tobacco: Never Sex Assigned at Date Recorded Not on file documented as of this encounter Medications at Time of Discharge Medication Sig Dispensed Refills Start Date End Date calcium carbonate-mag Chew 1 tablet daily. 0 04/2011 hydroxid 1,000-200 mg tablet,chewable jvnfeyr-osrklwkbl-beir Take 1 tablet by 0 014 333-133-5 [...] Neurology Sae Barron M.D., M.P.H. [address] [facility] [place] [phone] (Wo rk) documented as of this encounter Procedures Procedure Name Priority Date/Time Associated Diagnosis Comme [facility] US CAROTID RAD - Routine 06/15/2022 2:55 [...] normal distal ICA in accordance with [place] Symptomatic Carotid Endar terectomy Trial (NASCET). Procedure [...] normal distal ICA in accordance with [place] Symptomatic Carotid Endar terectomy Trial (NASCET). IMPRESSION: 1. No significant carotid artery stenosi s. 2. The right vertebral artery is not nathen ntified, which might be related to technique, vessel's hypoplasia, or occlusion. Sae Barron M.D., M.P.H. IMG US PROCEDURES documented in this encounter Visit Diagnoses Diagnosis Stroke Cerebrovascular Accident Personal History documented in this encounter
--- OUTSIDE RECORDS SUMMARY | 2022-09-07 19:42 | XMS_ITS | Encounter Summary ---
:1940 Demographics Address [address] [place] [address] Mobile Phone Home Phone Preferred Language ENG Marital Status Moravian Affiliation Unknown Race White Ethnic Group Not or Author Organization [facility] Address [address] [place] [address] Care Team Providers Name Role Phone Unavailable [...] Neurology Sae Barron M.D., M.P.H. [address] [place] [phone] (Wo rk) documented as of [...]
--- OUTSIDE RECORDS SUMMARY | 2022-09-07 19:42 | XMS_ITS | Encounter Summary ---
:1940 Demographics Address [address] [place] [address] Mobile Phone Home Phone Preferred Language ENG Marital Status Druze Affiliation Unknown Race White Ethnic Group Not or Author Organization [facility] Address [address] [place] [address] Care Team Providers Name Role Phone Unavailable [...] Visit Neurology Sae Barron M.D., M.P.H. [address] [phone] (Wo rk) documented as [...] 03/18/1999 AM CDT 11:26 AM CDT Narrative [facility] - 03/18/1999 11:26 AM CDT [id number] Surgical Pathology Requested By: ? Darío ford M.D. ?([id number]) ?? TISSUE DESCRIPTION: ?? Tissue from the [...] 1 cm) and axillary lymph nodes ?? [id number] A1, A2, A3, A4, A5, A6, A7 [...] progesterone recepto r studies are positive. ?? [id number] ?Puneet Schmidt M.D.:pjp ?? PRELIMINARY FROZEN SECTION CONSULTAT ION: ? Invasive grade 3 (of 4), nuclear grade 2 (of 3) adenocarcinoma, ductal type. ??Hold for ?? permanent sections. Procedure Note 12/17/2017 [id number] Surgical Pathology Requested By: Darío Meyer M.D. ([id number]) TISSUE DESCRIPTION: Tissue from the right breast [...] x 1 cm) and axillary lymph nodes [id number] A1, A2, A3, A4, A5, A6, A7, [...] and progesterone receptor stud ies are positive. [id number] Puneet Schmidt M.D.:fany rey PRELIMINARY FROZEN SECTION CONSULTATION : Invasive grade 3 (of 4), nuclear grade 2 (of 3) adenocarcinoma, ductal type. Hold for permanent sections. Darío Meyer M.D. LAB PATHOLOGY/CYTOLOGY ORDER ALEKSEY Performing Organization Address City/State/ZIP Code Phon e Number [facility] - [address] [place], [place] [address] [facility] documented in this encounter Visit Diagnoses Not on filedocumented in this encounter
--- OUTSIDE RECORDS SUMMARY | 2022-09-07 19:42 | XMS_ITS | Encounter Summary ---
:1940 Demographics Address [address] [place] [address] Mobile Phone Home Phone Preferred Language ENG Marital Status Hinduism Affiliation Unknown Race White Ethnic Group Not or Author Organization [facility] Address [address] [place] [address] Care Team Providers Name Role Phone Unavailable [...] Visit Neurology Sae Barron M.D., M.P.H. [address] [phone] (Wo rk) documented as of this encounter Visit Diagnoses Not on filedocumented in this encounter
--- OUTSIDE RECORDS SUMMARY | 2022-09-07 19:42 | XMS_ITS | Encounter Summary ---
:1940 Demographics Address [address] [place] [address] Mobile Phone Home Phone Preferred Language ENG Marital Status Yazidi Affiliation Unknown Race White Ethnic Group Not or Author Organization [facility] Address [address] [place] [address] Care Team Providers Name Role Phone Unavailable Primary Care Provider Unavailable Reason for Visit Appointment Request (Routine) - Closed Specialty Diagnoses / Procedures Referred By Contact Refer red To Contact Dermatology Diagnoses Screening Examination Skin Cancer Referral ID Status Reason Start Date Expiration Date Visits Requ ested Visits Authorized [id number] Closed 11/02/2019 11/01/2020 1 1 Encounter Details Date Type Department Care Team Description 03/21/2020 Office Visit Department of Arlet Viera Lymphoma P ersonal History (Primary Dx); Dermatology in M.D. Dermatoheliosis; [place], [place] [address] [place] [address] Multiple; [address] [facility] [address] Keratosis Seborrheic [place], [place] [phone] (Wo rk) Social History Tobacco Use Types [...] Visit Neurology Sae Barron M.D., M.P.H. 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
--- OUTSIDE RECORDS SUMMARY | 2022-09-07 19:42 | XMS_ITS | Encounter Summary ---
:1940 Demographics Address [address] [place] [address] Mobile Phone Home Phone Preferred Language ENG Marital Status Confucianist Affiliation Unknown Race White Ethnic Group Not or Author Organization [facility] Address [address] [place] [address] Care Team Providers Name Role Phone Unavailable Primary Care Provider Unavailable Encounter Details Date Type Department Care Team Description 06/24/2022 Orders Only Department of Neurology in Sae Barron M.D., [place], [place] M.P.H. [address] [place] [address] [address] [place] [address] [place], [place] [phone] (Wo rk) Social History Tobacco Use Types Packs/Day Years Used Date Smoking Tobacco: Never Smokeless Tobacco: Never Sex Assigned at Date Recorded Not on file documented as of this encounter Plan of Treatment Upcoming Encounters Date Type Specialty Care Team Description 09/16/2022 Office Visit Neurology Sae Barron M.D., M.P.H. [address], [place] [phone] (Wo rk) documented as of this encounter Visit Diagnoses Not on filedocumented in this encounter
--- OUTSIDE RECORDS SUMMARY | 2022-09-07 19:42 | XMS_ITS | Encounter Summary ---
:1940 Demographics Address [address] [place] [address] Mobile Phone Home Phone Preferred Language ENG Marital Status Pentecostal Affiliation Unknown Race White Ethnic Group Not or Author Organization [facility] Address [address] [place] [address] Care Team Providers Name Role Phone Unavailable Primary Care Provider Unavailable Encounter Details Date Type Department Care Team Description 06/15/2022 Clinical Communication Department of Alvarez Peterson Neurology in [place], [place] [address] [place] [phone] [phone] Social History Tobacco Use Types Packs/Day Years Used Date Smoking Tobacco: Never Smokeless Tobacco: Never Sex Assigned at Date Recorded Not on file documented as of this encounter Miscellaneous Notes Telephone Encounter - Jacy Downey - 06/24/2022 2:36 PM CDT Patient called back. Needs referral sent to [facility] in [place] not to [facility]. Telephone Encounter - River Rajan - 06/15/2022 2:56 PM CDT Gunnar, This patient has a MRI scheduled in [place], but they do not offer open MRI's. They would like to be seen in [facility] Center for diagnostic imagining in [place] at an outside clinic. Can you please order a referral for this patient. Thank You documented in this encounter Plan of Treatment Upcoming Encounters Date Type Specialty Care Team Description 09/16/2022 Office Visit Neurology Sae Barron M.D., M.P.H. [address] [phone] (Wo rk) documented as of this encounter Visit Diagnoses Not on filedocumented in this encounter
--- OUTSIDE RECORDS SUMMARY | 2022-09-07 19:42 | XMS_ITS | Encounter Summary ---
:1940 Demographics Address [address] [place] [address] Mobile Phone Home Phone Preferred Language ENG Marital Status Mormonism Affiliation Unknown Race White Ethnic Group Not or Author Organization [facility] Address [address] [place] [address] Care Team Providers Name Role Phone Unavailable Primary Care Provider Unavailable Encounter Details Date Type Department Care Team Description 03/13/2009 Hospital Encounter HX RST BREAST Britt Mays M.D. [address] [place] [address] (Wo rk) Social History Tobacco Use Types Packs/Day Years Used Date Smoking Tobacco: Never Assessed Sex Assigned at Date Recorded Not on file documented as of this encounter Plan of Treatment Upcoming Encounters Date Type Specialty Care Team Description 09/16/2022 Office Visit Neurology Sae Barron M.D., M.P.H. [address] [phone] (Wo rk) documented as of this encounter Visit Diagnoses Not on filedocumented in this encounter
--- OUTSIDE RECORDS SUMMARY | 2022-09-07 19:42 | XMS_ITS | Encounter Summary ---
:1940 Demographics Address [address] [place] [address] Mobile Phone Home Phone Preferred Language ENG Marital Status Mandaeism Affiliation Unknown Race White Ethnic Group Not or Author Organization [facility] Address [address] [place] [address] Care Team Providers Name Role Phone Unavailable Primary Care Provider Unavailable Encounter Details Date Type Department Care Team Description 07/29/2022 Clinical Communication Department of Neurology Sae Barron, in [facility] roberto Bethea, M.P.H. [address] [place] [address] [phone] Social History Tobacco Use Types Packs/Day Years Used Date Smoking Tobacco: Never Smokeless Tobacco: Never Sex Assigned at Date Recorded Not on file documented as of this encounter Miscellaneous Notes Telephone Encounter - Kiera Mello LBillP.N. - 07/30/2022 8:15 AM CDT Received report . Report has been placed in your basket. Son Fabricio would like you to call him with results at [phone]. Follow up appointment is 09/16/22 . Telephone Encounter - Kiera Mello L.PBillN. - 07/29/2022 2:45 PM CDT Contacted [facility] for MRI report and images. Will fax report and have images pushed to [place]. Son informed and would like to have [...] Visit Neurology Sae Barron M.D., M.P.H. [address] [place] [phone] (Wo rk) documented as of this encounter Visit Diagnoses Not on filedocumented in this encounter
--- OUTSIDE RECORDS SUMMARY | 2022-09-07 19:42 | XMS_ITS | Encounter Summary ---
:1940 Demographics Address [address] [place] [address] Mobile Phone Home Phone Preferred Language ENG Marital Status Catholic Affiliation Unknown Race White Ethnic Group Not or Author Organization [facility] Address [address] [place] [address] Care Team Providers Name Role Phone Unavailable Primary Care Provider Unavailable Encounter Details Date Type Department Care Team Description 07/27/2018 Hospital Encounter Department of Mayra, Medhat segal Chest Wall Radiology, [place] Neema Bañuelos [facility], in [place], [place] [address] [place] [address] Social History Tobacco Use Types Packs/Day Years Used Date Smoking Tobacco: Never Sex Assigned at Date Recorded Not on file documented as of this encounter Medications at Time of Discharge Medication Sig Dispensed Refills Start Date End Date calcium carbonate-mag Chew 1 tablet daily. 0 04/2011 hydroxid 1,000-200 mg tablet,chewable rvggalh-zovlmcjag-rsok Take 1 tablet by 0 014 333-133-5 [...] Neurology Sae Barron M.D., M.P.H. [address] [phone] (Wo rk) documented as of this [...]
--- OUTSIDE RECORDS SUMMARY | 2022-09-07 19:42 | XMS_ITS | Encounter Summary ---
:1940 Demographics Address [address] [place] [address] Mobile Phone Home Phone Preferred Language ENG Marital Status Protestant Affiliation Unknown Race White Ethnic Group Not or Author Organization [facility] Address [address] [place] [address] Care Team Providers Name Role Phone Unavailable Primary Care Provider Unavailable Reason for Visit Reason Comments Results I called and left a message for her son about the MRI results. Encounter Details Date Type Department Care Team Description 07/30/2022 Clinical Communication Department of Sleep Sae Barron (I called Medicine in [place], and left a mess karina Michael, M.P.H. for her son about [place] [address] the MRI results.) [address] [place] [phone] Social History Tobacco Use Types Packs/Day Years Used Date Smoking Tobacco: Never Smokeless Tobacco: Never Sex Assigned at Date Recorded Not on file documented as of this encounter Plan of Treatment Upcoming Encounters Date Type Specialty Care Team Description 09/16/2022 Office Visit Neurology Sae Barron M.D., M.P.H. [address] [place], [place] [phone] (Wo rk) documented as of this encounter Visit Diagnoses Not on filedocumented in this encounter
--- OUTSIDE RECORDS SUMMARY | 2022-09-07 19:42 | XMS_ITS | Encounter Summary ---
:1940 Demographics Address [address] [place] [address] Mobile Phone Home Phone Preferred Language ENG Marital Status Orthodox Affiliation Unknown Race White Ethnic Group Not or Author Organization [facility] Address [address] [place] [address] Care Team Providers Name Role Phone Unavailable Primary Care Provider Unavailable Reason for Visit Reason Comments Medical Information Encounter Details Date Type Department Care Team Description 06/30/2022 Clinical Communication Department of Sleep Sae Barron Medical Information Medicine in [place], Clementina Michael. [place] [id number] [facility] [place] [phone] Social History Tobacco Use Types Packs/Day Years Used Date Smoking Tobacco: Never Smokeless Tobacco: Never Sex Assigned at Date Recorded Not on file documented as of this encounter Miscellaneous Notes Telephone Encounter - Ifrah Brar RBillMBillABill - 07/02/2022 12:17 PM CDT Called Son and talked to him about what Dr Berg said. Son said that Jovanny Abdalla would be further for them in distance. They do still have the large bore magnet MRI appt in [place]. Son said that he will talk to his mother and then get back to us if they think of a different plan. [facility] said theremight be a place in [place] but after talking to the son he [...] the only one in the region is [facility]. . External referral needs to be placed and faxed to [facility]. PLAN Disposition/Recommendation: Provider please complete referral. Nurse [...] Office Visit Neurology Sae Barron M.D., M.P.H. [address] [phone] (Wo rk) documented as of this encounter Visit Diagnoses Not on filedocumented in this encounter
--- OUTSIDE RECORDS SUMMARY | 2022-09-07 19:42 | XMS_ITS | Clinical Summary ---
:1940 Demographics Address [address] [place] [address] Mobile Phone Home Phone Preferred Language ENG Marital Status Amish Affiliation Unknown Race White Ethnic Group Not or Author Organization [facility] Address [address] [place] [address] Care Team Providers Name Role Phone Unavailable Primary Care Provider Unavailable Source Comments Patient records contain information from all sites at [facility]. For routine questions regarding patient records, call [phone] during business hours, M-F 8:00 AM - 5:00 PM Central Time. Record requests for emergency care only can be directed to [phone] at any time.[facility] Allergies Active Allergy Reactions Severity Noted Date [...] 0 12/25/2015 Active mg tablet mouth daily. xggyumd-vcbseefpv-xqfh Take 1 tablet by 0 07/25/2014 Active [...] for son Fabricio Godoy avas - phone [phone]. Problem Noted Date Lymphoma B Cell Cutaneous [...] 06/15/2022 Clinical Communication Neurology Alvarez Peterson M.D. from Last 3 Months Social History Tobacco [...] Visit Neurology Sae Barron M.D., M.P.H. [address] [place] [phone] (Wo rk) Health Maintenance Due Date [...] Diagnosis Comme nts OUTSIDE MR NEURO Routine 08/13/2022 12:10 Results for PM DROP PIT WORKER this procedure are in the results section. OUTSIDE CT NEURO Routine 08/13/2022 9:55 Results for AM DROP PIT WORKER this procedure are in the results section. OUTSIDE CT NEURO Routine 08/13/2022 9:50 Results for AM DROP PIT WORKER this procedure are in the results section. OUTSIDE MR NEURO Routine 07/20/2022 10:10 Results for AM CDT this procedure are in the results section. US CAROTID RAD - Routine 06/15/2022 2:55 Stroke Results for BILATERAL (most inpatients PM CDT Cerebrovascular this pro cedure and all Accident Personal are in the outpatients) History results section. from Last 3 Months Results MR head/brain wo con-Outside MR Neuro (08/13/2022 12:10 PM DROP PIT WORKER)Only the most recent of2 resultswithin the time period is included. Specimen (Source) Anatomical Collection Method Collection Time Re ceived Time Location / / Volume Laterality 08/13/2022 12:06 PM DROP PIT WORKER Narrative [facility] - 08/13/2022 1:27 PM DROP PIT WORKER This order has been created and auto-finalized to support the import of outside images. If available, original i nterpretation can be found on the Media Tab in Chart Review, in Document V iewer, or as an image in QREADS. If a re-interpretation or overread is re quired please follow defined workflow. ?? Provider Not In System IMG MRI PROCEDURES Performing Organization Address City/[facility]/ZIP Code Phon e Number IIMS IIMS NA CT ANGIO NECK-Outside CT Neuro (08/13/2022 9:55 AM DROP PIT WORKER)Only the most recent of2 resultswithin the time period is included. Specimen (Source) Anatomical Collection Method Collection Time Re ceived Time Location / / Volume Laterality 08/13/2022 9:49 AM DROP PIT WORKER Narrative [facility] - 08/13/2022 1:34 PM DROP PIT WORKER This order has been created and auto-finalized to support the import of outside images. If available, original i nterpretation can be found on the Media Tab in Chart Review, in Document V iewer, or as an image in QREADS. If a re-interpretation or overread is re quired please follow defined workflow. ?? Provider Not In System IMG CT PROCEDURES Performing Organization Address City/[facility]/ZIP Code Phon e Number IIMS IIMS NA [...] normal distal ICA in accordance with [place] Symptomatic Carotid Endar terectomy Trial (NASCET). Procedure [...] normal distal ICA in accordance with [place] Symptomatic Carotid Endar terectomy Trial (NASCET). IMPRESSION: 1. No significant carotid artery stenosi s. 2. The right vertebral artery is not nathen ntified, which might be related to technique, vessel's hypoplasia, or occlusion. Sae Barron M.D., M.P.H. IMG US PROCEDURES from Last 3 Months Insurance Payer Benefit Plan Subscriber ID Effective Phone Address Typ e / Group Dates MEDICARE MEDICARE A [id number] 2005-Pres [address] [place] [address] BLUE CROSS BC[place] [id number] 2016-Pres [phone] PO ALESHA X Cost Share BLUE SHIELD BLUE COST ent [phone] [place] [address] Guarantor Name Account Type Relation to Date of Phone Billing Patient Address Apolonia Del Castillo Personal/Family Self 1940 [address] (Home) [place] [address]
--- OUTSIDE RECORDS SUMMARY | 2022-09-07 19:42 | XMS_ITS | Encounter Summary ---
:1940 Demographics Address [address] [place] [address] Mobile Phone Home Phone Preferred Language ENG Marital Status Gnosticist Affiliation Unknown Race White Ethnic Group Not or Author Organization [facility] Address [address] [place] [address] Care Team Providers Name Role Phone Unavailable Primary Care Provider Unavailable Reason for Referral Outpatient (Routine) - Closed Specialty Diagnoses / Procedures Referred By Contact Refer red To Contact Dermatology Medhat Nunez M.D. [facility] Referral ID Status Reason Start Date Expiration Date Visits Requ ested Visits Authorized [id number] Closed 01/14/2018 07/13/2018 1 1 Encounter Details Date Type Department Care Team Description 01/14/2018 Orders Only Department of Dermatology Latha Nunez, in [facility] roberto Bethea [address] [place] [address] Social History Tobacco Use Types Packs/Day Years Used Date Smoking Tobacco: Never Sex Assigned at Date Recorded Not on file documented as of this encounter Plan of Treatment Upcoming Encounters Date Type Specialty Care Team Description 09/16/2022 Office Visit Neurology Sae Barron M.D., M.P.H. [address] [place] [phone] (Wo rk) Scheduled Referrals Name Type Priority Associated Order Schedule Diagnoses Dermatology office Outpatient Referral Routine Ex pected: visit (clinic) 05/31/2018 (Approximate), Expires: 01/14/2021 documented as of this encounter Visit Diagnoses Not on filedocumented in this encounter
--- OUTSIDE RECORDS SUMMARY | 2022-09-07 19:42 | XMS_ITS | Encounter Summary ---
:1940 Demographics Address [address] [place] [address] Mobile Phone Home Phone Preferred Language ENG Marital Status Jainism Affiliation Unknown Race White Ethnic Group Not or Author Organization [facility] Address [address] [place] [address] Care Team Providers Name Role Phone Unavailable Primary Care Provider Unavailable Encounter Details Date Type Department Care Team Description 03/23/2019 Hospital Encounter Department of [facility] Radiology, Deuce Mallory M.D., [facility], in Ph.D. Unspecified Sit e [facility]) [address] [place] [phone] Social History Tobacco Use Types Packs/Day Years Used Date Smoking Tobacco: Never Sex Assigned at Date Recorded Not on file documented as of this encounter Medications at Time of Discharge Medication Sig Dispensed Refills Start Date End Date calcium carbonate-mag Chew 1 tablet daily. 0 04/2011 hydroxid 1,000-200 mg tablet,chewable yxuywnd-mgrzfmuth-ajag Take 1 tablet by 0 [phone] [...] Visit Neurology Sae Barron M.D., M.P.H. [address] [place] [phone] (Wo rk) documented as of this [...] RADIOPHARMACEUTICAL/MEDS: Route: intravenous fludeoxyglucose F 18 injection SHELTER (FDG F-18),9.9 millicurie TECHNIQUE: ??F-18 FDG PET/CT [...] RADIOPHARMACEUTICAL/MEDS: Route: intravenous fludeoxyglucose F 18 injection SHELTER (FDG F-18),9.9 millicurie TECHNIQUE: F-18 FDG PET/CT [...] relapsed lymphom a. Rodriguez Murillo M.D., Ph.D. 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
--- OUTSIDE RECORDS SUMMARY | 2022-09-07 19:42 | XMS_ITS | Encounter Summary ---
:1940 Demographics Address [address] [place] [address] Mobile Phone Home Phone Preferred Language ENG Marital Status Religion Affiliation Unknown Race White Ethnic Group Not or Author Organization [facility] Address [address] [place] [address] Care Team Providers Name Role Phone Unavailable Primary Care Provider Unavailable Encounter Details Date Type Department Care Team Description 03/25/2011 Hospital Encounter HX RST DERM SURG NURSE Provider, [facility] Social History Tobacco Use Types Packs/Day Years [...] Neurology Sae Barron M.D., M.P.H. [address] [place] [phone] (Wo rk) documented as of this encounter Visit Diagnoses Not on filedocumented in this encounter
--- OUTSIDE RECORDS SUMMARY | 2022-09-07 19:42 | XMS_ITS | Encounter Summary ---
:1940 Demographics Address [address] [place] [address] Mobile Phone Home Phone Preferred Language ENG Marital Status Jewish Affiliation Unknown Race White Ethnic Group Not or Author Organization [facility] Address [address] [place] [address] Care Team Providers Name Role Phone Unavailable Primary Care Provider Unavailable Encounter Details Date Type Department Care Team Description 02/02/2011 Hospital Encounter HX RST BONE MARROW ITC Milly Nunez rd J, GO07 R.N. [address] [place] [address] Social History Tobacco Use Types Packs/Day Years [...] Neurology Sae Barron M.D., M.P.H. [address] [phone] (Wo rk) documented as [...]
--- OUTSIDE RECORDS SUMMARY | 2022-09-07 19:42 | XMS_ITS | Encounter Summary ---
:1940 Demographics Address [address] [place] [address] Mobile Phone Home Phone Preferred Language ENG Marital Status Church Affiliation Unknown Race White Ethnic Group Not or Author Organization [facility] Address [address] [place] [address] Care Team Providers Name Role Phone Unavailable Primary Care Provider Unavailable Reason for Visit Reason Comments Referral Encounter Details Date Type Department Care Team Description 07/10/2022 Clinical Communication Department of Neurology Sae Barron, Referral in [facility] roberto Bethea, M.P.H. [address] [place] [address] [address], [place] [phone] Social History Tobacco Use Types Packs/Day Years [...] Brain completed and faxed to fax number [phone]. Telephone Encounter - Kiera Mello L.P.N. - 07/13/2022 1:42 PM CDT Call placed to [facility] for Radiology MRI form. Will fax to [facility]. Telephone Encounter - Margaret Anderson - 07/10/2022 3:56 PM CDT Patient was referred to [facility] for an MRI. Patient is requesting an open MRI and would like a referral to [facility] in [place]. Can you call patient? Thanks. documented in this encounter Plan of Treatment Upcoming Encounters Date Type Specialty Care Team Description 09/16/2022 Office Visit Neurology Sae Barron M.D., M.P.H. [address] [phone] (Wo rk) documented as of this encounter Visit Diagnoses Not on filedocumented in this encounter
--- OUTSIDE RECORDS SUMMARY | 2022-09-07 19:42 | XMS_ITS | Encounter Summary ---
:1940 Demographics Address [address] [place] [address] Mobile Phone Home Phone Preferred Language ENG Marital Status Confucianist Affiliation Unknown Race White Ethnic Group Not or Author Organization [facility] Address [address] [place] [address] Care Team Providers Name Role Phone Unavailable Primary Care Provider Unavailable Reason for Referral Outpatient (Routine) - Authorized Specialty Diagnoses / Procedures Referred By Contact Refer red To Contact Neurology Sae Barron M.D ., M.P.H. [facility] Region [address] [place] [phone] Referral ID Status Reason Start Date Expiration Date Visits V isits Requested Authorized [id number] Authorized 05/28/2022 05/27/2025 1 1 MRI/CAT/PET Scan (Routine) - Authorized Specialty Diagnoses / Procedures Referred By Contact Refer red To Contact Radiology Diagnoses Stroke Cerebrovascular Accident Personal History Sae Barron M.D., [facility] Region Procedures MR Brain without IV Contrast [place] MRI BRAIN WO CNTRST HC MRI BRAIN WO CNTRST M.P.H. [address] [place] [address] Referral ID Status Reason Start Date Expiration Date Visits V isits Requested Authorized [id number] Authorized 05/28/2022 05/28/2023 1 1 Outpatient (Routine) - Closed Specialty Diagnoses / Procedures Referred By Contact Refer red To Contact Diagnoses Stroke Cerebrovascular Accident Personal History Sae Barron M.D., [facility] Region Procedures US Carotid Bilateral M.P.H. [address] [place] [phone] Referral ID Status Reason Start Date Expiration Date Visits Requ ested Visits Authorized [id number] Closed 05/28/2022 05/28/2023 1 1 Reason for Visit Reason Comments Cerebrovascular Accident Ref. Dr. Anderson [facility] Appointment Request (Routine) - Closed Specialty Diagnoses / Procedures Referred By Contact Refer red To Contact Neurology Referral ID Status Reason Start Date Expiration Date Visits Requ ested Visits Authorized [id number] Closed 05/18/2022 05/18/2023 1 Encounter Details Date Type Department Care Team Description 05/28/2022 Comprehensive Visit Department of Sae Barron Stroke Cerebrovascular Neurology in [place], Accident Person Cheryl CorbinP.HBill History (Primary Dx) [place] [address] [place] [phone] Social History Tobacco Use Types Packs/Day Years [...] her stroke. They bring in records in [place] which I am unfortunately not able to interpret. It sounds as though she has been stable since that time but upon return to night states although she is on Plavix she has not had an echocardiogram, Holter monitor a duplex scan of the neck nor an MRI brain locally. She does have a history of bradycardia in she has seen a supervisor plate forming in the very near future and Abhijit [...] Dina Arnold D.O. Final Case Number 03/23/2019 [id number] Final Interpretation 03/23/2019 Final Value:FINAL DIAGNOSIS A. Left shoulder, Skin punch biopsy: Angioma B. Right lateral back, Skin excision: Angioma OBJECTIVE BP 141/85 (BP Location: Left arm, Patient Position: Sitting, Cuff Size: Regular) Pulse 70 Wt 61.9 kg BMI 24.95 kg/m?? Physical Exam COGNITION: Alert and cooperative. During wish is passable but her son translates some of the visit for her. 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 MOTOR: Full strength [...] because she is scheduled to see a supervisor plate forming. I told her son that if the [...] Visit Neurology Sae Barron M.D., M.P.H. [address] [place], [place] [phone] (Wo rk) Scheduled Orders [...] normal distal ICA in accordance with [place] Symptomatic Carotid Endar terectomy Trial (NASCET). Procedure [...] normal distal ICA in accordance with [place] Symptomatic Carotid Endar terectomy Trial (NASCET). IMPRESSION: [...]
== END 2022-08-13 09:13 | disposition home or self-care (01) ==
LOC: AMB 09-07 19:39
PROVIDERS: PCP Family Medicine; Visit Provider Family Medicine
DX: R47.81 Slurred speech (principal)
CPT/HCPCS: A0425; A0427

== ENCOUNTER 2022-08-13 09:37 | Inpatient (IN) | payer MEDICARE, BC, SELFPAY ==
[2022-08-13] VITALS (30 sets, daily range): BP systolic 102–181; BP diastolic 41–148; PULSE 45–60; RESP 8–23; TEMP 36.9–37.9; O2SAT 89–100; BMI 24.9; BMI 27.5
--- NOTE | 2022-08-13 09:45 | CRLHL7_ITS ---
For Patients: As a result of the Cures Act, medical imaging exams and procedure reports are released immediately into your electronic medical record. You may view this report before your referring provider. If you have questions, please contact your health care provider. CT ANGIOGRAM NECK DATE: 08/13/2022 CLINICAL HISTORY: Patient with focal neurological deficits. TECHNIQUE: Standard helical CT image acquisition of the neck up to the skull base after bolus intravenous contrast enhancement. Multiplanar reconstructed images performed on a separate workstation. COMPARISON: CT same day. FINDINGS: The origins of the great vessels from the aortic arch are patent. The origin of the right vertebral artery is patent. The origin of the left vertebral artery is patent. The common carotid arteries are patent. There is no stenosis at the origin of the right internal carotid artery. There is no stenosis at the origin of the left internal carotid artery. The rest of the cervical segments of the internal carotid arteries are patent up to the skull base. The vertebral arteries are codominant. The cervical segments of the vertebral arteries are patent up to the skull base. The visualized lung apices are unremarkable. The thyroid gland is unremarkable. The soft tissues of the neck are unremarkable. There are degenerative changes in the cervical spine. IMPRESSION: Normal CT angiogram of the neck. Please note that all CT scans at this facility use dose modulation, iterative reconstruction, and/or weight-based dosing when appropriate to reduce radiation dose to as low as reasonably achievable. Dictated by: Delaney Olson MD @ 08/13/2022 10:25:29 (Electronically Signed)
--- NOTE | 2022-08-13 09:45 | CRLHL7_ITS ---
For Patients: As a result of the Cures Act, medical imaging exams and procedure reports are released immediately into your electronic medical record. You may view this report before your referring provider. If you have questions, please contact your health care provider. CT ANGIOGRAM HEAD DATE: 08/13/2022 CLINICAL HISTORY: Patient with focal neurological deficits. TECHNIQUE: Standard helical CT image acquisition through the intracranial circulation following intravenous administration of contrast material with bolus tracking. Multiplanar reconstructed images were performed and interpreted. COMPARISON: CT same day. FINDINGS: There is no cerebral aneurysm or large vessel occlusion. The right internal carotid artery is normal. The right middle cerebral artery and its branches are normal. The right anterior cerebral artery and its branches are normal. The left internal carotid artery is normal. The left middle cerebral artery and its branches are normal. The left anterior cerebral artery and its branches are normal. The anterior communicating artery is well visualized and appears normal. The right vertebral artery and PICA are normal. The left vertebral artery and PICA are normal. The vertebral arteries are codominant. The basilar artery is patent and appears normal. The right posterior cerebral artery is normal. The left posterior cerebral artery is normal. The visualized venous structures are patent. IMPRESSION: Normal CT angiogram of the head without intracranial aneurysm or other neurovascular abnormality. Please note that all CT scans at this facility use dose modulation, iterative reconstruction, and/or weight-based dosing when appropriate to reduce radiation dose to as low as reasonably achievable. Dictated by: Delaney Olson MD @ 08/13/2022 10:26:36 (Electronically Signed)
--- NOTE | 2022-08-13 09:45 | CRLHL7_ITS ---
For Patients: As a result of the Century Cures Act, medical imaging exams and procedure reports are released immediately into your electronic medical record. You may view this report before your referring provider. If you have questions, please contact your health care provider. INDICATION: Stroke-like symptoms COMPARISON: None TECHNIQUE: CT examination of the head was performed as axial sections without intravenous contrast. Images were obtained from the vertex of the skull through the skull base. Please note that all CT scans at this facility use dose modulation, iterative reconstruction, and/or weight-based dosing when appropriate to reduce radiation dose to as low as reasonably achievable. FINDINGS: The brain shows no sign of mass lesion, mass effect, hemorrhage, or edema. There are involutional changes. There is moderate cortical atrophy and there is moderate to severe white matter disease. There is no hydrocephalus. Nonacute subcortical infarcts. The visualized portions of the orbits are normal in appearance. The osseous structures are normal in appearance with no sign of abnormality in the skull base or calvarium. I discussed this case with Dr. Smith at 10:15 a.m. on August 13, 2022 IMPRESSION: Involutional changes. Atrophy and white matter disease. Nonacute subcortical infarcts. No acute appearing finding. Please note that all CT scans at this facility use dose modulation, iterative reconstruction, and/or weight-based dosing when appropriate to reduce radiation dose to as low as reasonably achievable. Dictated by Pradeep Guadalupe MD @ 08/13/2022 10:19:08 AM (Electronically Signed)
--- NOTE | 2022-08-13 09:46 | ED.NURSE ---
Pt to imaging. Daughter at bedside.
--- NOTE | 2022-08-13 10:15 | ED.NURSE ---
Pt incontinent of urine while at imaging. Linens changed. Per daughter, Pt states she is cold, using garbled words/confused and incomprehensible.
--- NOTE | 2022-08-13 11:00 | ED.NURSE ---
Pt able to use bedside commode x2 assist, noticeably weak, urine sample collected and sent to lab. Linens changed, soaked with urine. Brief applied. IV removed by Pt. Emesis x1, aware. Per daughter, Pt states she is thirsty, continues to be confused.
--- NOTE | 2022-08-13 11:15 | ED.NURSE ---
Moist water swabs provided. Family aware we cannot give water to drink at this time. Pt cooperative with IV placement.
--- NOTE | 2022-08-13 11:27 | ED_ITS ---
HPI - General Adult General Chief complaint: Weakness Stated complaint: Weakness possible stroke Time Seen by Provider: 08/13/22 09:44 Source: family Mode of arrival: EMS Limitations: language barrier and altered mental status History of Present Illness HPI narrative: 81-year-old female brought in today at the request of her 2 grown children for altered mental status. Her son went to see her this morning, patient does live independently, and he found a table in the kitchen filled with pens and medications out of their bottles. He states that this is very out of character for his mom who generally functions very well by herself. Yesterday there had been no concerns and she was acting like herself. When he got there today aside from seen this disarray of her kitchen table he also noticed that should her speech was slurred and she was using words that did not make any sense. She is complaining of feeling very weak and having chills. EMS was called patient was brought in today. She does have a complex medical history that is significant for hypertension, diabetes, breast cancer, chronic bradycardia, and a hemorrhagic stroke in February of this year which she suffered while she was in [facility]. Per her son, she was also told that she had a history of ischemic stroke that they saw on imaging and therefore patient was started on Plavix in April of this year. She was admitted for overnight in January here in [place] for fever of unknown origin which resolved overnight. Related Data Home Medications Medication Instructions Recorded Confirmed calcium carbonate 600 mg calcium 600 mg PO QDAY 05/08/22 07/16/22 (1,500 mg) tablet (Calcium) cholecalciferol (vitamin D3) 50 50 mcg PO DAILY 05/08/22 07/16/22 mcg (2,000 unit) tablet flaxseed oil 1,000 mg capsule 1,000 mg PO QDAY 05/08/22 07/16/22 metformin 500 mg tablet 500 mg PO BIDWMEAL 05/08/22 07/16/22 omega-3 fatty acids 500 mg capsule 500 mg PO QDAY 05/08/22 07/16/22 simvastatin 20 mg tablet 20 mg PO .Bedtime 05/08/22 07/16/22 lancets (Microlet Lancet) 08/12/22 08/12/22 Previous Rx's Medication Instructions Recorded Diabetic Test Strips #300 ea 05/05/22 clopidogrel 75 mg tablet (Plavix) 75 mg PO QDAY #90 tabs 06/16/22 irbesartan 150 mg tablet 150 mg PO QDAY #90 tabs 06/16/22 Allergies Allergy/AdvReac Type Severity Reaction Status Date / Time aspirin Allergy Severe cant Verified 07/16/22 14:38 breathe, low pulse azithromycin Allergy Severe GI upset, Verified 07/16/22 14:38 vomiting clindamycin Allergy Severe GI upset, Verified 07/16/22 14:38 vomiting blue dye Allergy Unknown Verified 07/16/22 14:38 Menthyl salicylate Allergy Severe cant Uncoded 07/16/22 14:38 breathe, low pulse Tartrazine Allergy Unknown Uncoded 07/16/22 14:38 Review of Systems Status of ROS: Reports: unobtainable due to mental status [facility] Medical History Albuminuria (~2021) Chest pain Colonoscopy refused (2020) Cyst of pancreas (01/2022) History of CVA (cerebrovascular accident) (03/21/22) History of herpes zoster (06/2018) History of Holter monitoring (03/18/22) History of malignant lymphoma (2011) Hx of fall Hypertension Hyperthyroidism Infection due to severe acute respiratory syndrome coronavirus 2 (SARS-CoV-2) Malignant neoplasm of breast (2008) Osteopenia (~2013) Polyp of colon (06/2020) Positive colorectal cancer screening using DNA-based stool test (~2019) Severe acute respiratory syndrome coronavirus 2 (SARS-CoV-2) vaccination declined Sinus pause (~03/2022) Urethral caruncle Ventricular bigeminy (2016) Surgical History Cutaneous lymphoma (2011) History of colonoscopy History of lumpectomy of right breast (1998) History of right mastectomy (2008) Family History Brother Family history of early CAD, Onset Age: 42 Kidney disease Stroke Myocardial infarction, Onset Age: 42 Mother Myocardial infarction, Onset Age: 83 Sister Myocardial infarction, Onset Age: 64 Social History Narrative: , 2 adult children, 1 son in car accident, 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 Patient does speak [place] per her children however she is only speaking Kazakh today. Per her children she is using the wrong words when she is asked questions. She can follow basic commands like open your eyes are open your mouth, but she does not follow other commands. Patient appears agitated. HEENT: Normocephalic atraumatic. Pupils are equally round reactive to light. Extraocular muscles are intact. Conjunctivae are moist without any icterus noted. Moist mucous membranes. Posterior pharynx is normal. Neck is soft without any lymphadenopathy or thyromegaly. No masses are appreciated. Cardiovascular: Heart is regular rate and rhythm S1 and S2 are present without any murmurs. Lungs: Clear to auscultation bilaterally no wheezes rhonchi or rales are appreciated. Abdomen: Soft and nontender nondistended with normal bowel sounds. No guarding or rebound. No masses or organomegaly appreciated. Extremities: Bilateral lower extremities are without edema. Normal DP and PT pulses. Skin: Well perfused without any obvious rashes. Const: Vital Signs, click to edit/add: Vital Signs - 24 hr 08/13/22 09:40 08/13/22 10:57 08/13/22 10:30 Temperature 98.9 F Pulse Rate Pulse Rate [Pulse Oximeter] 54 L 52 L Respiratory Rate 14 Blood Pressure Blood Pressure [Ri ght Upper Arm] 162/148 H 167/110 H Pulse Oximetry 99 97 89 Oxygen Delivery Me thod Room Air 08/13/22 10:15 08/13/22 10:45 08/13/22 11:08 Temperature Pulse Rate Pulse Rate [Pulse Oximeter] 47 L 49 L Respiratory Rate Blood Pressure Blood Pressure [Ri ght Upper Arm] 102/41 L 160/66 H 120/80 Pulse Oximetry 94 97 Oxygen Delivery Me thod 08/13/22 11:15 08/13/22 11:30 08/13/22 11:45 Temperature Pulse Rate Pulse Rate [Pulse Oximeter] 51 L 50 L 45 L Respiratory Rate 23 8 L Blood Pressure Blood Pressure [Ri ght Upper Arm] 165/77 H 181/78 H Pulse Oximetry 95 Oxygen Delivery Me thod Room Air 08/13/22 12:00 08/13/22 12:57 08/13/22 13:02 Temperature Pulse Rate 57 L 50 L Pulse Rate [Pulse Oximeter] 48 L Respiratory Rate 15 Blood Pressure 121/69 144/78 H Blood Pressure [Ri ght Upper Arm] Pulse Oximetry 98 95 93 Oxygen Delivery Me thod Room Air 08/13/22 13:18 Temperature Pulse Rate 50 L Pulse Rate [Pulse Oximeter] Respiratory Rate Blood Pressure 149/70 H Blood Pressure [Ri ght Upper Arm] Pulse Oximetry 94 Oxygen Delivery Me thod Course Course Hospital Course: Upon arrival, patient went straight to head CT and CTA which were unremarkable. IV was established we started IV fluids, Zofran after patient had a vomiting episode. Patient was able to fall asleep and she rested periodically on and off while she was down here. Her lab work was unremarkable. Her mentation remained the same. We did proceed also with a brain MRI, this was also unremarkable. Vital Signs Vital signs: Initial Vital Signs Temperature 98.9 F 08/13/22 09:40 Temperature Source Temporal Artery Scan 08/13/22 09:40 Pulse Rate 54 L 08/13/22 09:40 Pulse Rhythm 08/13/22 09:40 Respiratory Rate 14 08/13/22 09:40 Blood Pressure 162/148 H 08/13/22 09:40 Blood Pressure Mean 152 08/13/22 09:40 Blood Pressure Position Supine 08/13/22 09:40 Pulse Oximetry 99 08/13/22 09:40 Oxygen Delivery Method 08/13/22 09:40 Vital Signs Temperature 98.9 F 08/13/22 09:40 Pulse Rate 54 L 08/13/22 09:40 Respiratory Rate 14 08/13/22 09:40 Blood Pressure 162/148 H 08/13/22 09:40 Pulse Oximetry 99 08/13/22 09:40 Oxygen Delivery Method 08/13/22 09:40 Temperature 98.9 F 08/13/22 09:40 Pulse Rate 50 L 08/13/22 13:18 Respiratory Rate 15 08/13/22 12:00 Blood Pressure 149/70 H 08/13/22 13:18 Pulse Oximetry 94 08/13/22 13:18 Oxygen Delivery Method 08/13/22 12:00 Medical Decision Making MDM Narrative Medical decision making narrative: 81-year-old female with altered mental status, etiology unclear. Patient will be admitted for further management. Lab Data Labs: Lab Results 08/13/22 08/13/22 08/13/22 Range/Units 11:10 11:28 11:28 WBC 9.04 (4.50-11.00) K/uL RBC 4.62 (4.00-5.20) m/uL Hgb 14.4 (12.0-16.0) gm/dL Hct 44.1 (33.0-51.0) % MCV 96 (80-100) fL MCH 31 (26-34) pg MCHC 33 (32-36) gm/dL RDW Coeff of Rosales 12.9 (11.5-15.5) % Plt Count 182 (140-440) K/uL Neut % (Auto) 85.3 H (42.0-72.0) % Lymph % (Auto) 10.2 L (20-44) % [place] % (Auto) 3.8 (0.0-11.0) % Eos % (Auto) 0.1 (0.0-7.0) % Baso % (Auto) 0.2 (0.0-3.0) % Neut # (Auto) 7.70 H (1.7-7.0) K/uL Lymph # (Auto) 0.90 (0.90-2.90) K/uL [place] # (Auto) 0.30 (0.00-0.90) K/UL Eos # (Auto) 0.01 (0.00-0.50) K/uL Baso # (Auto) 0.02 (0.00-0.30) K/uL Abs Immat Gran (auto) 0.04 (0.00-0.30) K/uL Imm/Tot Granulo (auto) 0.4 % ESR (2-20) mm/hr Sodium 141 (135-149) mmol/L Potassium 4.1 (3.6-5.1) mmol/L Chloride 107 (96-114) mmol/L Carbon Dioxide 26 (20-32) mmol/L BUN 13 (7-30) mg/dL Creatinine 0.5 (0.5-1.5) mg/dL Estimated Creat Clear 33.29 Estimated GFR 94 ml/min Glucose 144 H (60-115) mg/dL Lactate (0.5-1.9) mmol/L Calcium 9.0 (8.4-10.6) mg/dL Total Bilirubin (0.1-1.5) mg/dL Direct Bilirubin (0.0-0.5) mg/dL AST (12-35) U/L ALT (4-35) U/L Alkaline Phosphatase (40-150) U/L C-Reactive Protein (0.5-1.0) mg/dL NT-Pro-B Natriuret Pep (0-450) PG/mL Total Protein (6.0-8.3) g/dL Albumin (3.3-5.0) g/dL Lipase (23-300) U/L Urine Color Yellow (Yellow) Urine Appearance Clear (Clear) Urine pH 7.5 (5.0-8.5) Ur Specific [place] 1.015 (1.000-1.030) Urine Protein Negative (Negative) Urine Glucose (UA) Negative (Negative) Urine Ketones Negative (Negative) Urine Blood Trace-intact A (Negative) Urine Nitrite Negative (Negative) Urine Bilirubin Negative (Negative) Urine Urobilinogen 0.2 (0.2-1.0) Ur Leukocyte Esterase Negative (Negative) Urine RBC 0-2 (0-2) Urine WBC 0-2 (0-5) Ur Squamous Epith Cells None (None-Few) Urine Bacteria None (None) Salicylates (1.0-10) mg/dL Ethyl Alcohol (0.01-0.03) % SARS-CoV-2 (PCR) (Negative) Influenza Type A (PCR) (Negative) Influenza Type B (PCR) (Negative) POC Troponin I (0.01-0.04) ng/ml 08/13/22 08/13/22 08/13/22 Range/Units 11:28 11:28 11:28 WBC (4.50-11.00) K/uL RBC (4.00-5.20) m/uL Hgb (12.0-16.0) gm/dL Hct (33.0-51.0) % MCV (80-100) fL MCH (26-34) pg MCHC (32-36) gm/dL RDW Coeff of Rosales (11.5-15.5) % Plt Count (140-440) K/uL Neut % (Auto) (42.0-72.0) % Lymph % (Auto) (20-44) % [place] % (Auto) (0.0-11.0) % Eos % (Auto) (0.0-7.0) % Baso % (Auto) (0.0-3.0) % Neut # (Auto) (1.7-7.0) K/uL Lymph # (Auto) (0.90-2.90) K/uL [place] # (Auto) (0.00-0.90) K/UL Eos # (Auto) (0.00-0.50) K/uL Baso # (Auto) (0.00-0.30) K/uL Abs Immat Gran (auto) (0.00-0.30) K/uL Imm/Tot Granulo (auto) % ESR 5 (2-20) mm/hr Sodium (135-149) mmol/L Potassium (3.6-5.1) mmol/L Chloride (96-114) mmol/L Carbon Dioxide (20-32) mmol/L BUN (7-30) mg/dL Creatinine (0.5-1.5) mg/dL Estimated Creat Clear Estimated GFR ml/min Glucose (60-115) mg/dL Lactate 2.1 H (0.5-1.9) mmol/L Calcium (8.4-10.6) mg/dL Total Bilirubin 0.8 (0.1-1.5) mg/dL Direct Bilirubin 0.2 (0.0-0.5) mg/dL AST 20 (12-35) U/L ALT 15 (4-35) U/L Alkaline Phosphatase 67 (40-150) U/L C-Reactive Protein < 0.5 L (0.5-1.0) mg/dL NT-Pro-B Natriuret Pep 601 H (0-450) PG/mL Total Protein 7.3 (6.0-8.3) g/dL Albumin 4.5 (3.3-5.0) g/dL Lipase 55 (23-300) U/L Urine Color (Yellow) Urine Appearance (Clear) Urine pH (5.0-8.5) Ur Specific [place] (1.000-1.030) Urine Protein (Negative) Urine Glucose (UA) (Negative) Urine Ketones (Negative) Urine Blood (Negative) Urine Nitrite (Negative) Urine Bilirubin (Negative) Urine Urobilinogen (0.2-1.0) Ur Leukocyte Esterase (Negative) Urine RBC (0-2) Urine WBC (0-5) Ur Squamous Epith Cells (None-Few) Urine Bacteria (None) Salicylates < 1.0 L (1.0-10) mg/dL Ethyl Alcohol < 0.01 L (0.01-0.03) % SARS-CoV-2 (PCR) (Negative) Influenza Type A (PCR) (Negative) Influenza Type B (PCR) (Negative) POC Troponin I (0.01-0.04) ng/ml 08/13/22 08/13/22 Range/Units 11:28 11:35 WBC (4.50-11.00) K/uL RBC (4.00-5.20) m/uL Hgb (12.0-16.0) gm/dL Hct (33.0-51.0) % MCV (80-100) fL MCH (26-34) pg MCHC (32-36) gm/dL RDW Coeff of Rosales (11.5-15.5) % Plt Count (140-440) K/uL Neut % (Auto) (42.0-72.0) % Lymph % (Auto) (20-44) % [place] % (Auto) (0.0-11.0) % Eos % (Auto) (0.0-7.0) % Baso % (Auto) (0.0-3.0) % Neut # (Auto) (1.7-7.0) K/uL Lymph # (Auto) (0.90-2.90) K/uL [place] # (Auto) (0.00-0.90) K/UL Eos # (Auto) (0.00-0.50) K/uL Baso # (Auto) (0.00-0.30) K/uL Abs Immat Gran (auto) (0.00-0.30) K/uL Imm/Tot Granulo (auto) % ESR (2-20) mm/hr Sodium (135-149) mmol/L Potassium (3.6-5.1) mmol/L Chloride (96-114) mmol/L Carbon Dioxide (20-32) mmol/L BUN (7-30) mg/dL Creatinine (0.5-1.5) mg/dL Estimated Creat Clear Estimated GFR ml/min Glucose (60-115) mg/dL Lactate (0.5-1.9) mmol/L Calcium (8.4-10.6) mg/dL Total Bilirubin (0.1-1.5) mg/dL Direct Bilirubin (0.0-0.5) mg/dL AST (12-35) U/L ALT (4-35) U/L Alkaline Phosphatase (40-150) U/L C-Reactive Protein (0.5-1.0) mg/dL NT-Pro-B Natriuret Pep (0-450) PG/mL Total Protein (6.0-8.3) g/dL Albumin (3.3-5.0) g/dL Lipase (23-300) U/L Urine Color (Yellow) Urine Appearance (Clear) Urine pH (5.0-8.5) Ur Specific [place] (1.000-1.030) Urine Protein (Negative) Urine Glucose (UA) (Negative) Urine Ketones (Negative) Urine Blood (Negative) Urine Nitrite (Negative) Urine Bilirubin (Negative) Urine Urobilinogen (0.2-1.0) Ur Leukocyte Esterase (Negative) Urine RBC (0-2) Urine WBC (0-5) Ur Squamous Epith Cells (None-Few) Urine Bacteria (None) Salicylates (1.0-10) mg/dL Ethyl Alcohol (0.01-0.03) % SARS-CoV-2 (PCR) Negative SARS-CoV-2 (Negative) Influenza Type A (PCR) Negative PCR FLU A (Negative) Influenza Type B (PCR) Negative PCR FLU B (Negative) POC Troponin I 0.00 L (0.01-0.04) ng/ml Imaging Data MRI - head: Attestation: I have reviewed the pertinent imaging results. Radiologist's impression: Brain MRI without contrast. The following sequences were obtained: Sagittal T1 weighted sequence. DWI and ADC mapping sequences. Axial FLAIR and JOSE T2 weighted sequences. Susceptibility or GRE sequence. COMPARISON: Head CT from 08/13/2022. brain MRI from 05/13/2015. FINDINGS: No evidence of acute ischemia. Multiple microhemorrhages within both cerebral hemispheres, basal ganglia/thalami and the left cerebellum. Patchy FLAIR hyperintensities throughout the supratentorial white matter and brainstem, typical for chronic microvascular ischemic change. Moderate generalized parenchymal volume loss with more advanced atrophy of the hippocampal formations. No mass effect or herniation. No hydrocephalus or extra-axial collections. The pituitary gland, parasellar structures and optic chiasm are normal. Posterior fossa is normal. All the major intracranial vascular structures demonstrate normal flow-related signal. The orbital contents are normal. No calvarial or skull base marrow replacing process. Mild ethmoid air cell mucosal thickening. No extracranial soft tissue findings. IMPRESSION: 1. No acute ischemia or other acute intracranial pathology. 2. 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 Mostly new since 2014. 3. Moderate chronic microvascular ischemic changes within the supratentorial white matter and brainstem. Progressed since 2014. 4. Moderate generalized parenchymal volume loss with more advanced atrophy of the hippocampal formations. Progressed since 2014. CT scan - head: Attestation: I have reviewed the pertinent imaging results. Radiologist's impression: CT examination of the head was performed as axial sections without intravenous contrast. Images were obtained from the vertex of the skull through the skull base. Please note that all CT scans at this facility use dose modulation, iterative reconstruction, and/or weight-based dosing when appropriate to reduce radiation dose to as low as reasonably achievable. FINDINGS: The brain shows no sign of mass lesion, mass effect, hemorrhage, or edema. There are involutional changes. There is moderate cortical atrophy and there is moderate to severe white matter disease. There is no hydrocephalus. Nonacute subcortical infarcts. The visualized portions of the orbits are normal in appearance. The osseous structures are normal in appearance with no sign of abnormality in the skull base or calvarium. I discussed this case with Dr. Smith at 10:15 a.m. on August 13, 2022 IMPRESSION: Involutional changes. Atrophy and white matter disease. Nonacute subcortical infarcts. No acute appearing finding. CTA head and neck: Attestation: I have reviewed the pertinent imaging results. Radiologist's impression: CT ANGIOGRAM HEAD DATE: 08/13/2022 CLINICAL HISTORY: Patient with focal neurological deficits. TECHNIQUE: Standard helical CT image acquisition through the intracranial circulation following intravenous administration of contrast material with bolus tracking. Multiplanar reconstructed images were performed and interpreted. COMPARISON: CT same day. FINDINGS: There is no cerebral aneurysm or large vessel occlusion. The right internal carotid artery is normal. The right middle cerebral artery and its branches are normal. The right anterior cerebral artery and its branches are normal. The left internal carotid artery is normal. The left middle cerebral artery and its branches are normal. The left anterior cerebral artery and its branches are normal. The anterior communicating artery is well visualized and appears normal. The right vertebral artery and PICA are normal. The left vertebral artery and PICA are normal. The vertebral arteries are codominant. The basilar artery is patent and appears normal. The right posterior cerebral artery is normal. The left posterior cerebral artery is normal. The visualized venous structures are patent. IMPRESSION: Normal CT angiogram of the head without intracranial aneurysm or other neurovascular abnormality. CT ANGIOGRAM NECK DATE: 08/13/2022 CLINICAL HISTORY: Patient with focal neurological deficits. TECHNIQUE: Standard helical CT image acquisition of the neck up to the skull base after bolus intravenous contrast enhancement. Multiplanar reconstructed images performed on a separate workstation. COMPARISON: CT same day. FINDINGS: The origins of the great vessels from the aortic arch are patent. The origin of the right vertebral artery is patent. The origin of the left vertebral artery is patent. The common carotid arteries are patent. There is no stenosis at the origin of the right internal carotid artery. There is no stenosis at the origin of the left internal carotid artery. The rest of the cervical segments of the internal carotid arteries are patent up to the skull base. The vertebral arteries are codominant. The cervical segments of the vertebral arteries are patent up to the skull base. The visualized lung apices are unremarkable. The thyroid gland is unremarkable. The soft tissues of the neck are unremarkable. There are degenerative changes in the cervical spine. IMPRESSION: Normal CT angiogram of the neck. ECG Data Attestation: I personally reviewed and interpreted this ECG as follows: (Junctional rhythm, pulse 49) Discharge Plan Discharge Clinical Impression: Acute alteration in mental status Patient Disposition: Admitted As Inpatient Prescriptions: No Action (DME) lancets [Microlet Lancet] Misc See Rx Instructions .ROUTE Rx Instructions: DX CODE: E11.9 cholecalciferol (vitamin D3) 50 mcg (2,000 unit) tablet 50 mcg PO DAILY metformin 500 mg tablet 500 mg PO BIDWMEAL omega-3 fatty acids 500 mg capsule 500 mg PO QDAY flaxseed oil 1,000 mg capsule 1,000 mg PO QDAY Rx Instructions: administer with a meal calcium carbonate [Calcium 600] 600 mg calcium (1,500 mg) tablet 600 mg PO QDAY simvastatin 20 mg tablet 20 mg PO .Bedtime (DME) Diabetic Test Strips Misc See Rx Instructions .Route Qty: 300 3RF Rx Instructions: Patient to test BID-TID irbesartan 150 mg tablet 150 mg PO QDAY Qty: 90 0RF clopidogrel [Plavix] 75 mg tablet 75 mg PO QDAY Qty: 90 0RF Follow Up/Referrals: Leda Anderson MD [Primary Care Provider] -
--- NOTE | 2022-08-13 11:29 | CRLHL7_ITS ---
For Patients: As a result of the Century Cures Act, medical imaging exams and procedure reports are released immediately into your electronic medical record. You may view this report before your referring provider. If you have questions, please contact your health care provider. INDICATION: Stroke. TECHNIQUE: Brain MRI without contrast. The following sequences were obtained: Sagittal T1 weighted sequence. DWI and ADC mapping sequences. Axial FLAIR and JOSE T2 weighted sequences. Susceptibility or GRE sequence. COMPARISON: Head CT from 08/13/2022. brain MRI from 05/13/2015. FINDINGS: No evidence of acute ischemia. Multiple microhemorrhages within both cerebral hemispheres, basal ganglia/thalami and the left cerebellum. Patchy FLAIR hyperintensities throughout the supratentorial white matter and brainstem, typical for chronic microvascular ischemic change. Moderate generalized parenchymal volume loss with more advanced atrophy of the hippocampal formations. No mass effect or herniation. No hydrocephalus or extra-axial collections. The pituitary gland, parasellar structures and optic chiasm are normal. Posterior fossa is normal. All the major intracranial vascular structures demonstrate normal flow-related signal. The orbital contents are normal. No calvarial or skull base marrow replacing process. Mild ethmoid air cell mucosal thickening. No extracranial soft tissue findings. IMPRESSION: 1. No acute ischemia or other acute intracranial pathology. 2. 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 Mostly new since 2014. 3. Moderate chronic microvascular ischemic changes within the supratentorial white matter and brainstem. Progressed since 2014. 4. Moderate generalized parenchymal volume loss with more advanced atrophy of the hippocampal formations. Progressed since 2014. Dictated by Marcelino Mason MD @ 08/13/2022 12:53:49 PM (Electronically Signed)
[2022-08-13] MEDS: ONDANSETRON 2 MG/ML inj 4 MG IVP (11:45)
[2022-08-13 11:50] LABS: Basophils Absolute Auto 0.02 K/uL (0.00-0.30); Basophils Percent Auto 0.2 % (0.0-3.0); Eosinophils Absolute Auto 0.01 K/uL (0.00-0.50); Eosinophils Percent Auto 0.1 % (0.0-7.0); Hematocrit 44.1 % (33.0-51.0); Hemoglobin* 14.4 gm/dL (12.0-16.0); Immature Granulocytes Abs Auto 0.04 K/uL (0.00-0.30); Immature Granulocytes Pct Auto 0.4 %; Lactate* 2.1 mmol/L (0.5-1.9); Lymphocytes Percent Auto 10.2 % (20-44); Mean Corpuscular HGB Conc 33 gm/dL (32-36); Mean Corpuscular Hemoglobin 31 pg (26-34); Mean Corpuscular Volume 96 fL (80-100); Monocytes Percent Auto 3.8 % (0.0-11.0); Neutrophils Percent Auto 85.3 % (42.0-72.0); Platelet Count* 182 K/uL (140-440); RDW Coefficient of Variation % 12.9 % (11.5-15.5); Red Blood Count 4.62 m/uL (4.00-5.20); White Blood Count* 9.04 K/uL (4.50-11.00)
[2022-08-13 11:51] LABS: Slide Review Reflex No
[2022-08-13] MEDS: LORazepam 2 MG/ML inj 0.5 MG IVP (11:52)
--- NOTE | 2022-08-13 12:01 | ED.NURSE ---
Pt to MRI. Ativan given IVP prior to leaving for imaging.
[2022-08-13 12:06] LABS: Appearance Urine Clear (Clear); Bilirubin Urine Negative (Negative); Blood Urine Trace-intact (Negative); Color Urine Yellow (Yellow); Glucose Urine Negative (Negative); Ketones Urine Negative (Negative); Leukocyte Esterase Urine Negative (Negative); Nitrite Urine Negative (Negative); Protein Urine Negative (Negative); Specific Gravity Urine 1.015 (1.000-1.030); Urobilinogen Urine 0.2 (0.2-1.0); pH Urine 7.5 (5.0-8.5)
[2022-08-13 12:09] LABS: Chloride* 107 mmol/L (96-114); Potassium* 4.1 mmol/L (3.6-5.1); Sodium* 141 mmol/L (135-149)
[2022-08-13 12:10] LABS: Albumin* 4.5 g/dL (3.3-5.0)
[2022-08-13 12:11] LABS: Creatinine* 0.5 mg/dL (0.5-1.5); Est. Creatinine Clearance* 33.29; Estimated Glomerular Filt Rate 94 ml/min
[2022-08-13 12:12] LABS: Blood Urea Nitrogen* 13 mg/dL (7-30); Carbon Dioxide* 26 mmol/L (20-32); Glucose* 144 mg/dL (60-115); Total Protein* 7.3 g/dL (6.0-8.3)
[2022-08-13 12:13] LABS: Alanine Aminotransferase* 15 U/L (4-35); Alkaline Phosphatase* 67 U/L (40-150); Aspartate Amino Transferase* 20 U/L (12-35); Bilirubin Direct* 0.2 mg/dL (0.0-0.5); Bilirubin Total* 0.8 mg/dL (0.1-1.5); Lipase* 55 U/L (23-300)
[2022-08-13 12:14] LABS: Salicylate* < 1.0 mg/dL (1.0-10)
[2022-08-13 12:15] LABS: Ethanol* < 0.01 % (0.01-0.03)
[2022-08-13 12:18] LABS: C Reactive Protein* < 0.5 mg/dL (0.5-1.0)
[2022-08-13 12:22] LABS: NT Pro B Type NatriureticPept* 601 PG/mL (0-450)
[2022-08-13 12:27] LABS: RBC Urine 0-2 (0-2); WBC Urine 0-2 (0-5)
[2022-08-13 12:29] LABS: PCR FLU A Negative PCR FLU A (Negative); PCR FLU B Negative PCR FLU B (Negative)
[2022-08-13 12:30] LABS: SARS PCR* Negative SARS-CoV-2 (Negative)
--- NOTE | 2022-08-13 12:31 | ED.NURSE ---
Pt back from MRI. Incontinent of urine again. Linens changed. Per Dr. Ni, insert Rowland catheter, catheter inserted on 2nd attempt.
[2022-08-13 12:34] LABS: Erythrocyte SedimentationRate* 5 mm/hr (2-20)
--- NOTE | 2022-08-13 13:14 | ED.NURSE ---
[facility] for admission. MD speaking with son and updating on plan of care.
[2022-08-13] MEDS: 0.9 % SODIUM CHLORIDE 500 ML 500 ML IV (13:16)
--- NOTE | 2022-08-13 13:18 | W.PC.EDHO ---
Primary Language: Uzbek Preferred Language: Orientation Status: [] Alert & Oriented [] Slight Confusion [] Known Dx Dementia Transfers By: [] Assist of 1 [] Assist of 2 [] Lift Active Medications Discontinued Medications Generic Name Dose Route Start Last Admin Trade Name Laurel PRN Reason Stop Dose Admin Sodium Chloride 500 mls @ 500 mls/hr 08/13/22 10:59 08/13/22 13:16 0.9 % Sodium Chloride 500 Ml IV 08/13/22 11:58 500 mls/hr .Q1H ONE Administration Lorazepam 0.5 mg 08/13/22 11:07 08/13/22 11:52 Lorazepam 2 Mg/Ml Inj IVP 08/13/22 11:08 0.5 mg ONCE ONE Administration Ondansetron HCl 4 mg 08/13/22 11:07 08/13/22 11:45 Ondansetron 2 Mg/Ml Inj IVP 08/13/22 11:08 4 mg ONCE ONE Administration Description of Symptoms ED Triage Present Problem Pt here via EMS for eval of confusion, aphasia, Description slurred speech, not making sense to family; speaks Uzbek, anxious and seems off. Pt called daughter this AM at 0830 because Pt stated she felt poorly. No neuro deficits per EMS. Daughter states Pt couldn't remember son's phone number, which is abnormal. Pt denies pain. LKW was last noc. 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 Hx DM. At baseline , per daughter-Pt converses well, ambulates independently unassisted (but occasionally uses cane). Residual effects from last strokes: R hand numbness, mild R chin numbness. No issues of weakness/speech at baseline. ED Triage Date of Onset of 08/13/22 Symptoms Female History Patient [place] Coma Scale [place] coma scale total score 13 Samaria coma scale total score 12 [place] coma scale total score 12 [place] coma scale total score 12 [place] coma scale total score 13 [place] coma scale total score 12 [place] coma scale total score 12 [place] coma scale total score 12 [place] coma scale total score 12 [place] coma scale total score 12 IV Insertion/Site Date of IV Line Insertion [ 08/13/22 Left AC by EMS] Date of IV Line Insertion [ 08/13/22 Left Antecubital] Oxygen Administration Pulse Oximetry 98 Pulse Oximetry 95 Pulse Oximetry 97 Pulse Oximetry 97 Pulse Oximetry 94 Pulse Oximetry 89 Pulse Oximetry 99 Oxygen Delivery Method Room Air Oxygen Delivery Method Room Air Oxygen Delivery Method Room Air Cardiac Monitoring EKG Method 12 Lead
--- NOTE | 2022-08-13 16:08 | ED.NURSE ---
Report given to JONNIE Green. Pt will go to Rm 243.
--- NOTE | 2022-08-13 16:14 | PM.IMHP1 ---
Hospitalist- H&P: [facility] History of Present Illness Date Seen: 08/13/22 Chief complaint: Weakness possible stroke Narrative: Theologia Topher Del Castillo is a 81 year old female who presented to the emergency room today by ambulance for acute mental status changes. Daughter Shea present in room for H&P. Patient's last known well was yesterday. This morning, son visited her at home and she was intermittently speaking nonsensically, with medications out of their pill bottles and home in moderate disarray. She did not appear to have any lateralizing neurological deficits, but endorsed feeling weak. She was unable to consistently follow commands during her ambulance ride to the emergency room. ER course and findings: - no acute abnormalities on head CT, no acute abnormalities on head/neck CTA - brain MRI exhibited multiple microhemorrhages throughout the brain likely reflecting a combination of my amyloid angiopathy and hypertension - T-max 100.2 - White blood count 9 with PMN predominance - normal sed rate and CRP, no acute abnormalities on UA. 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 At the time, her symptoms were right-sided numbness. She was hospitalized for 16 days, as she also tested positive for COVID during hospitalization (asymptomatic). She has not had any significant residual deficits, was placed on Plavix, and established care with Dr. Barron of Neurology at the [facility] on 05/28/2022. During recent follow-up, she had bilateral carotid ultrasounds that were reassuring, a brain MRI that exhibited a chronic right thalamic lacunar infarct, scattered areas of punctate and confluent white matter that likely reflected moderate microangiopathic change. She has also followed up with Dr. Nichols of Cardiology at the [facility], had an echocardiogram in January that exhibited LVEF of 60%, moderate left atrial enlargement, mild MR. 48 hr Holter monitor (03/18) exhibited sinus rhythm with 16.7% PVC burden. The rest of patient's history updated below. She is and lives independently in [place]. Adult son and daughter both live locally as well; they shared decision making duties regarding her mother's health. Based on previous conversations, they believe their mother is a full code. Review of Systems Status of ROS: Reports: unobtainable due to medical condition Narrative: No pain mitigating movements, no recent GI illnesses that daughter is aware of [facility] Medical History Albuminuria (~2021) Chest pain Colonoscopy refused (2020) Cyst of pancreas (01/2022) History of CVA (cerebrovascular accident) (03/21/22) History of herpes zoster (06/2018) History of Holter monitoring (03/18/22) History of malignant lymphoma (2011) Hx of fall Hypertension Hyperthyroidism Infection due to severe acute respiratory syndrome coronavirus 2 (SARS-CoV-2) Malignant neoplasm of breast (2008) Osteopenia (~2013) Polyp of colon (06/2020) Positive colorectal cancer screening using DNA-based stool test (~2019) Severe acute respiratory syndrome coronavirus 2 (SARS-CoV-2) vaccination declined Sinus pause (~03/2022) Urethral caruncle Ventricular bigeminy (2016) Surgical History Cutaneous lymphoma (2011) History of colonoscopy History of lumpectomy of right breast (1998) History of right mastectomy (2008) Family History Brother Family history of early CAD, Onset Age: 42 Kidney disease Stroke Myocardial infarction, Onset Age: 42 Mother Myocardial infarction, Onset Age: 83 Sister Myocardial infarction, Onset Age: 64 Social History Narrative: , 2 adult children, 1 son in car accident, 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 rarely consumes alcohol Exercise by daily walking Smoking Status: Never smoker Meds Home Medications and Allergies Home Medications Medication Instructions Recorded Confirmed Type calcium carbonate 600 mg calcium 600 mg PO QDAY 05/08/22 07/16/22 History (1,500 mg) tablet (Calcium) cholecalciferol (vitamin D3) 50 50 mcg PO DAILY 05/08/22 07/16/22 History mcg (2,000 unit) tablet flaxseed oil 1,000 mg capsule 1,000 mg PO QDAY 05/08/22 07/16/22 History metformin 500 mg tablet 500 mg PO BIDWM 05/08/22 08/13/22 History omega-3 fatty acids 500 mg capsule 500 mg PO QDAY 05/08/22 07/16/22 History simvastatin 20 mg tablet 20 mg PO HS 05/08/22 08/13/22 History lancets (Microlet Lancet) 08/12/22 08/12/22 History clopidogrel 75 mg tablet (Plavix) 75 mg PO DAILY 08/13/22 08/13/22 History irbesartan 150 mg tablet 150 mg PO DAILY 08/13/22 08/13/22 History Allergies Allergy/AdvReac Type Severity Reaction Status Date / Time aspirin Allergy Severe cant Verified 07/16/22 14:38 breathe, low pulse azithromycin Allergy Severe GI upset, Verified 07/16/22 14:38 vomiting clindamycin Allergy Severe GI upset, Verified 07/16/22 14:38 vomiting methyl salicylate Allergy Severe respiratory Verified 08/13/22 14:52 blue dye Allergy Unknown Verified 07/16/22 14:38 FD and C no.5 (tartrazine) AdvReac Unknown Verified 08/13/22 14:52 Exam Narrative: Exam Narrative: GEN: Patient is laying comfortably in hospital bed, she is nontoxic in appearance. She will occasionally answer questions appropriately in Polish, but is primarily speaking in [place]. Her daughter notes that she is primarily nonsensical in her speech. HEENT: Normal external ears, EOMIs bilaterally, no scleral icterus CV: RRR, No concerning murmurs, rubs, or gallops R: LCTA bilaterally without concerning wheezing, rales, or rhonchi, air movement is adequate and patient is comfortable on room air Ext: wwp, no concerning edema Skin: No concerning skin lesions or rashes on exposed skin Neuro: Patient is not following commands, she does not appear to have any lateralizing neurological deficits Psych: Appropriate Const: Vital Signs, click to edit/add: Vital Signs - 24 hr 08/13/22 09:40 08/13/22 10:57 08/13/22 10:30 Temperature 98.9 F Pulse Rate Pulse Rate [Pulse Oximeter] 54 L 52 L Respiratory Rate 14 Blood Pressure Blood Pressure [Ri ght Upper Arm] 162/148 H 167/110 H Pulse Oximetry 99 97 89 Oxygen Delivery Me thod Room Air 08/13/22 10:15 08/13/22 10:45 08/13/22 11:08 Temperature Pulse Rate Pulse Rate [Pulse Oximeter] 47 L 49 L Respiratory Rate Blood Pressure Blood Pressure [Ri ght Upper Arm] 102/41 L 160/66 H 120/80 Pulse Oximetry 94 97 Oxygen Delivery Me thod 08/13/22 11:15 08/13/22 11:30 08/13/22 11:45 Temperature Pulse Rate Pulse Rate [Pulse Oximeter] 51 L 50 L 45 L Respiratory Rate 23 8 L Blood Pressure Blood Pressure [Ri ght Upper Arm] 165/77 H 181/78 H Pulse Oximetry 95 Oxygen Delivery Me thod Room Air 08/13/22 12:00 08/13/22 12:57 08/13/22 13:02 Temperature Pulse Rate 57 L 50 L Pulse Rate [Pulse Oximeter] 48 L Respiratory Rate 15 Blood Pressure 121/69 144/78 H Blood Pressure [Ri ght Upper Arm] Pulse Oximetry 98 95 93 Oxygen Delivery Me thod Room Air 08/13/22 13:18 08/13/22 13:19 08/13/22 13:30 Temperature Pulse Rate 50 L 49 L 53 L Pulse Rate [Pulse Oximeter] Respiratory Rate Blood Pressure 149/70 H Blood Pressure [Ri ght Upper Arm] Pulse Oximetry 94 95 95 Oxygen Delivery Me thod 08/13/22 13:32 08/13/22 13:48 08/13/22 14:02 Temperature Pulse Rate 53 L 49 L Pulse Rate [Pulse Oximeter] Respiratory Rate Blood Pressure 151/79 H 148/64 H 145/67 H Blood Pressure [Ri ght Upper Arm] Pulse Oximetry 96 96 Oxygen Delivery Me thod 08/13/22 14:18 08/13/22 14:33 08/13/22 14:47 Temperature Pulse Rate Pulse Rate [Pulse Oximeter] Respiratory Rate Blood Pressure 146/101 H 143/73 H 132/85 Blood Pressure [Ri ght Upper Arm] Pulse Oximetry Oxygen Delivery Me thod 08/13/22 15:02 08/13/22 15:18 08/13/22 15:32 Temperature 100.2 F H Pulse Rate Pulse Rate [Pulse Oximeter] Respiratory Rate Blood Pressure 136/70 150/91 H 157/76 H Blood Pressure [Ri ght Upper Arm] Pulse Oximetry Oxygen Delivery Me thod 08/13/22 15:47 Temperature Pulse Rate 50 L Pulse Rate [Pulse Oximeter] Respiratory Rate 20 Blood Pressure 168/79 H Blood Pressure [Ri ght Upper Arm] Pulse Oximetry 95 Oxygen Delivery Me thod Hospitalist - H&P: Result Labs Labs: Short CBC 08/13/22 Range/Units 11:28 WBC 9.04 (4.50-11.00) K/uL Hgb 14.4 (12.0-16.0) gm/dL Hct 44.1 (33.0-51.0) % Plt Count 182 (140-440) K/uL BMP 08/13/22 11:28 Sodium 141 Potassium 4.1 Chloride 107 Carbon Dioxide 26 BUN 13 Creatinine 0.5 Glucose 144 H Calcium 9.0 Liver Function 08/13/22 Range/Units 11:28 Total Bilirubin 0.8 (0.1-1.5) mg/dL Direct Bilirubin 0.2 (0.0-0.5) mg/dL AST 20 (12-35) U/L ALT 15 (4-35) U/L Alkaline Phosphatase 67 (40-150) U/L Albumin 4.5 (3.3-5.0) g/dL Urine 08/13/22 Range/Units 11:10 Urine Color Yellow (Yellow) Urine Appearance Clear (Clear) Urine pH 7.5 (5.0-8.5) Ur Specific [place] 1.015 (1.000-1.030) Urine Protein Negative (Negative) Urine Glucose (UA) Negative (Negative) [place] [address] Diagnostic Imaging Report Patient: Brandon Del Castillo MR#: [id number] : 1940 Acct:[id number] Loc: ED Service Date: 08/13/[address]: Ordering Physician: Domitila Ni MD Date of Service: 08/13/22 Procedure(s): MR head/brain wo con Accession Number(s): [id number] cc: Leda Anderson M.D.; Domitila Ni MD~ For Patients:? As a result of the 21st Century Cures Act, medical imaging exams and procedure reports are released immediately into your electronic medical record.? You may view this report before your referring provider.? If you have questions, please contact your health care provider. INDICATION: Stroke. TECHNIQUE: Brain MRI without contrast. The following sequences were obtained: Sagittal T1 weighted sequence. DWI and ADC mapping sequences. Axial FLAIR and JOSE T2 weighted sequences. Susceptibility or GRE sequence. COMPARISON: Head CT from 08/13/2022. brain MRI from 05/13/2015. FINDINGS: No evidence of acute ischemia. Multiple microhemorrhages within both cerebral hemispheres, basal ganglia/thalami and the left cerebellum. Patchy FLAIR hyperintensities throughout the supratentorial white matter and brainstem, typical for chronic microvascular ischemic change. Moderate generalized parenchymal volume loss with more advanced atrophy of the hippocampal formations. No mass effect or herniation. No hydrocephalus or extra-axial collections. The pituitary gland, parasellar structures and optic chiasm are normal. Posterior fossa is normal. All the major intracranial vascular structures demonstrate normal flow-related signal. The orbital contents are normal. No calvarial or skull base marrow replacing process. Mild ethmoid air cell mucosal thickening. No extracranial soft tissue findings. IMPRESSION: 1. No acute ischemia or other acute intracranial pathology. 2. 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 Mostly new since 2014. 3. Moderate chronic microvascular ischemic changes within the supratentorial white matter and brainstem. Progressed since 2014. 4. Moderate generalized parenchymal volume loss with more advanced atrophy of the hippocampal formations. Progressed since 2014. Dictated by Marcelino Mason MD @ 08/13/2022 12:53:49 PM Assessment and Plan Assessment and plan (1) Silent micro-hemorrhage of brain: Problem comment: MRI obtained 08/13/2022 Status: Acute Assessment and Plan: - reviewed case with Dr. Barron, patient's neurologist at the [facility]. He was able to review the MRI; findings are new. His recommendations for care are: - hold Plavix, control BP with goal of systolic blood pressure less than 140 - consider transfer, especially if mental status does not continue to improve with the above treatments - called and evaluated bed status at [facility], as well as hospitals in the [facility]; unfortunately, there was no bed availability within our transfer radius, will continue to look for Neurology beds as needed (2) Acute alteration in mental status: Status: Acute Assessment and Plan: - likely secondary to #1, possibly also infectious in nature. PT and OT evaluations ordered, as well as ST (3) Elevated temperature: Status: Acute Assessment and Plan: - no source for infectious process at this time, but given patient's age and comorbidities, will initiate broad-spectrum antibiotics, reassess need in 12-24 hours pending clinical course and culture results (4) Hypertension: Status: Chronic (5) History of CVA (cerebrovascular accident): Problem comment: In [place], had CT scan, right face numbness and right hand numbness ongoing, patient is on Plavix she is allergic to aspirin Status: Chronic (6) DM type 2 (diabetes mellitus, type 2): Problem comment: noninsulin dependent Status: Acute Assessment and Plan: accBRENNON nava (7) Bradycardia: Problem comment: Chronic, asymptomatic Status: Chronic (8) Cyst of pancreas: Problem comment: MRI has been recommended as an outpatient, patient has not completed. Follows with PCP for this. Asymptomatic Status: Acute Plan - per above - based on previous discussions the patient has had with her children, she is a full code - daughter Shea updated at bedside, questions answered. She is aware of her mother's tenuous status
[2022-08-13] MEDS: IRBESARTAN 150 MG TABLET PO (16:15)
--- NOTE | 2022-08-13 16:16 | ED.NURSE ---
Med given with applesauce, tolerates well. Ice water tolerated well.
[2022-08-13 17:50] LABS: Procalcitonin* 0.05 ng/mL (<0.50)
[2022-08-13] MEDS: PIPERACILLIN/TAZOBACTAM 3.375 GM in 0.9 % SODIUM CHLORIDE Mini-bag 100 ML IVPB (18:54)
[2022-08-13] MEDS: SODIUM CHLORIDE 0.9 % (FLUSH) 10 ML SYRINGE 5 ML IVF ×2 (18:55→21:33)
[2022-08-13] MEDS: 0.9 % SODIUM CHLORIDE 250 ml IV (18:55)
[2022-08-13] MEDS: SIMVASTATIN 20 MG TABLET PO (21:33)
--- NOTE | 2022-08-13 21:47 | PC.NURSE ---
Per Dr. Berkowitz, hold on looking for transfer bed until AM.
[2022-08-14] VITALS (12 sets, daily range): BP systolic 107–150; BP diastolic 57–85; PULSE 47–76; RESP 16; TEMP 36.4–37.1; O2SAT 99–100
[2022-08-14] MEDS: PIPERACILLIN/TAZOBACTAM 3.375 GM in 0.9 % SODIUM CHLORIDE Mini-bag 100 ML IVPB ×2 (00:07→06:23)
--- NOTE | 2022-08-14 00:26 | PC.NURSE ---
End of Shift: Patient admitted to 243. Sometimes answering in Urdu and other times in Croatian. Family interpreting when visiting and iPad car repairer used at other times, waiver signed. Alert to self and place. Up to chair with 2 assist and gait belt. Tolerating regular diet with no nausea. No swallowing difficulty noted. [place] patent. Temp max 100.3, MD aware. SBP below 140. Denies pain.
[2022-08-14] MEDS: HYDRALAZINE HCL 20 MG/ML inj 10 MG IVP ×3 (02:40→22:46)
[2022-08-14] MEDS: ACETAMINOPHEN 325 MG TABLET 975 MG PO (05:05)
--- NOTE | 2022-08-14 05:15 | PC.NURSE ---
Addendum entered by Isabel Park RN 08/14/22 21:19: To clarify asystole, tele showed approx 10 second pause with 1 beat in between, Pt resumed sinus bradycardia rate in 50's, pt asymptomatic. Original Note: [id number] Pt rested well during night, 1x BP med administered for BP >140 systolic per MD verbal order, recheck BP within ordered parameters of <140. HR down into the 30's for majority of night, once in the 20's and once an episode of asystole noted at 0431, tele strip printed, Dr Berkowitz updated and made aware, no new orders. C/O headache this a.m. at 0500, prn tylenol administered. keen patent and draining.
[2022-08-14 06:49] LABS: Lactate* 1.1 mmol/L (0.5-1.9)
[2022-08-14 06:59] LABS: Basophils Absolute Auto 0.04 K/uL (0.00-0.30); Basophils Percent Auto 0.5 % (0.0-3.0); Eosinophils Absolute Auto 0.03 K/uL (0.00-0.50); Eosinophils Percent Auto 0.3 % (0.0-7.0); Hematocrit 38.5 % (33.0-51.0); Hemoglobin* 12.7 gm/dL (12.0-16.0); Immature Granulocytes Abs Auto 0.01 K/uL (0.00-0.30); Immature Granulocytes Pct Auto 0.1 %; Lymphocytes Absolute Auto 3.03 K/uL (0.90-2.90); Lymphocytes Percent Auto 34.7 % (20-44); Mean Corpuscular HGB Conc 33 gm/dL (32-36); Mean Corpuscular Hemoglobin 31 pg (26-34); Mean Corpuscular Volume 94 fL (80-100); Monocytes Percent Auto 11.1 % (0.0-11.0); Neutrophils Absolute Auto 4.66 K/uL (1.7-7.0); Neutrophils Percent Auto 53.3 % (42.0-72.0); Platelet Count* 168 K/uL (140-440); RDW Coefficient of Variation % 12.6 % (11.5-15.5); White Blood Count* 8.74 K/uL (4.50-11.00)
[2022-08-14 07:20] LABS: Albumin* 3.7 g/dL (3.3-5.0); Chloride* 106 mmol/L (96-114)
[2022-08-14 07:21] LABS: Potassium* 3.7 mmol/L (3.6-5.1); Sodium* 135 mmol/L (135-149)
[2022-08-14 07:23] LABS: Aspartate Amino Transferase* 20 U/L (12-35); Bilirubin Total* 1.1 mg/dL (0.1-1.5); Carbon Dioxide* 24 mmol/L (20-32); Creatinine* 0.7 mg/dL (0.5-1.5); Est. Creatinine Clearance* 33.29; Estimated Glomerular Filt Rate 87 ml/min; Total Protein* 6.3 g/dL (6.0-8.3)
[2022-08-14 07:24] LABS: Alanine Aminotransferase* 14 U/L (4-35); Alkaline Phosphatase* 50 U/L (40-150); Blood Urea Nitrogen* 19 mg/dL (7-30); Calcium* 8.9 mg/dL (8.4-10.6); Glucose* 130 mg/dL (60-115)
[2022-08-14 07:31] LABS: Slide Review Reflex No
[2022-08-14 08:37] LABS: Procalcitonin* 0.07 ng/mL (<0.50)
[2022-08-14 08:38] LABS: C Reactive Protein* < 0.5 mg/dL (0.5-1.0)
[2022-08-14] MEDS: SODIUM CHLORIDE 0.9 % (FLUSH) 10 ML SYRINGE 5 ML IVF ×3 (10:20→22:27)
[2022-08-14] MEDS: IRBESARTAN 150 MG TABLET PO (10:20)
--- NOTE | 2022-08-14 16:19 | P.IMPN_ITS ---
Progress Note: A&P Assessment and plan (1) Silent micro-hemorrhage of brain: Problem details: MRI obtained 08/13/2022 and compared with previous MRI from earlier this month. Telephone consult with patient's neurologist was completed at admission. Attempt to transfer was made but unsuccessful. Fortunately, patient has had a tremendous improvement overnight. Concerns regarding prognosis and reoccurrence are high. Family, understandably so, would like his much assistance and consultation as possible. Status: Acute (2) History of CVA (cerebrovascular accident): Problem details: Complicated history of both hemorrhage and ischemic processes. This new MRI with this admission does look like new hemorrhages. Patient has an outpatient neurologist. She is seen in [place] by Dr. Barron. [facility]. We did speak with him yesterday. He said hold Plavix. Maintain blood pressure. Transfer to neuro service with any ongoing concerns presuming availability. Status: Chronic (3) Acute alteration in mental status: Problem details: Much improved Status: Acute (4) Hypertension: Problem details: Goal to keep blood pressure 140/90 or less. Irbesartan started this morning. IV hydralazine p.r.n.. Status: Chronic (5) Elevated temperature: Problem details: Isolated. No white count. Inflammatory markers negative. Will stop antibiotics. Status: Acute (6) DM type 2 (diabetes mellitus, type 2): Problem details: noninsulin dependent Status: Acute (7) Bradycardia: Problem details: Chronic, asymptomatic Status: Chronic (8) Cyst of pancreas: Problem details: MRI has been recommended as an outpatient, patient has not completed. Follows with PCP for this. Asymptomatic Status: Acute Subjective Date Seen: 08/14/22 Interval history: Daily Progress Note - Hospital Medicine Day #: 2 CC: AMS; new hemorrhagic stroke OVERNIGHT UPDATES FROM STAFF & MED, LAB, IMAGING UPDATES pt has done really well overnight. she has cleared her mental status; she is speaking and making sense. She is up walking with OT. Blood pressures are persistently less than 140/90. Pulse rate 40s to 50s Afebrile Respiratory rate 16 Room air sats 99% CBC within normal limits CMP is largely unremarkable. Specifically inflammatory markers remain negative. Elevated lactate has resolved Admission imaging is reviewed. I was present at neurology consult with Dr. Nasir Barron by telephone, yesterday evening. Blood cultures are negative to date Review of Systems: See subjective Cardiac: No new chest pain/pressure/palpitations. Respiratory: no new dyspnea. GI: No abdominal bloating Objective: Vitals: see above Lungs: Clear. Cardiac: S1S2. Neuro exam: no lateralizing signs; weakness seems general and not focal. speech is intelligible. Disposition/Potential discharge - Likely to return to previous living situation. Total time is 35 minutes with greater than 50% spent in counseling and coordination of care. Exam Const: Vital Signs, click to edit/add: Vital Signs - 24 hr 08/13/22 16:30 08/13/22 19:00 08/13/22 16:45 Temperature 100.2 F H 98.5 F 100.3 F H Pulse Rate Pulse Rate [Left P ulse Oximeter] 60 57 L Pulse Rate [Pulse Oximeter] 48 L Respiratory Rate 20 16 16 Blood Pressure [Le ft Arm] 102/77 137/77 Blood Pressure [Ri ght Upper Arm] 181/78 H Pulse Oximetry 100 95 Oxygen Delivery Me thod Room Air Room Air 08/13/22 17:00 08/13/22 21:00 08/13/22 19:00 Temperature Pulse Rate 58 L Pulse Rate [Left P ulse Oximeter] 57 L Pulse Rate [Pulse Oximeter] Respiratory Rate 16 Blood Pressure [Le ft Arm] 110/94 H Blood Pressure [Ri ght Upper Arm] Pulse Oximetry 95 Oxygen Delivery Hi thod Room Air 08/14/22 00:00 08/14/22 00:00 08/14/22 00:35 Temperature 97.5 F L Pulse Rate 51 L Pulse Rate [Left P ulse Oximeter] 52 L 52 L Pulse Rate [Pulse Oximeter] Respiratory Rate 16 Blood Pressure [Le ft Arm] 126/62 Blood Pressure [Ri ght Upper Arm] Pulse Oximetry 99 Oxygen Delivery Me thod Room Air 08/14/22 03:00 08/14/22 02:54 08/14/22 05:00 Temperature 98.7 F Pulse Rate Pulse Rate [Left P ulse Oximeter] 76 Pulse Rate [Pulse Oximeter] Respiratory Rate 16 Blood Pressure [Le ft Arm] 143/57 H 107/68 121/64 Blood Pressure [Ri ght Upper Arm] Pulse Oximetry 99 Oxygen Delivery Me thod Room Air 08/14/22 07:00 08/14/22 09:00 08/14/22 13:00 Temperature 98.3 F Pulse Rate Pulse Rate [Left P ulse Oximeter] 55 L 47 L 58 L Pulse Rate [Pulse Oximeter] Respiratory Rate 16 16 16 Blood Pressure [Le ft Arm] 137/65 115/66 Blood Pressure [Ri ght Upper Arm] Pulse Oximetry 99 99 Oxygen Delivery Me thod Room Air Room Air 08/14/22 07:00 08/14/22 15:00 Temperature Pulse Rate 60 59 L Pulse Rate [Left P ulse Oximeter] Pulse Rate [Pulse Oximeter] Respiratory Rate Blood Pressure [Le ft Arm] Blood Pressure [Ri ght Upper Arm] Pulse Oximetry Oxygen Delivery Me thod Labs Labs: Laboratory Results - last 24 hr 08/13/22 08/14/22 08/14/22 11:28 06:03 06:03 WBC 8.74 RBC 4.10 Hgb 12.7 Hct 38.5 MCV 94 MCH 31 MCHC 33 RDW Coeff of [place] 12.6 Plt Count 168 Neut % (Auto) 53.3 Lymph % (Auto) 34.7 [place] % (Auto) 11.1 H Eos % (Auto) 0.3 Baso % (Auto) 0.5 Neut # (Auto) 4.66 Lymph # (Auto) 3.03 H [place] # (Auto) 1.00 H Eos # (Auto) 0.03 Baso # (Auto) 0.04 Abs Immat Gran (auto) 0.01 Imm/Tot Granulo (auto) 0.1 Sodium 135 Potassium 3.7 Chloride 106 Carbon Dioxide 24 BUN 19 Creatinine 0.7 Estimated Creat Clear 33.29 Estimated GFR 87 Glucose 130 H Lactate Calcium 8.9 Total Bilirubin 1.1 AST 20 ALT 14 Alkaline Phosphatase 50 C-Reactive Protein < 0.5 L Total Protein 6.3 Albumin 3.7 Procalcitonin 0.05 0.07 08/14/22 06:03 WBC RBC Hgb Hct MCV MCH MCHC RDW Coeff of [place] Plt Count Neut % (Auto) Lymph % (Auto) [place] % (Auto) Eos % (Auto) Baso % (Auto) Neut # (Auto) Lymph # (Auto) [place] # (Auto) Eos # (Auto) Baso # (Auto) Abs Immat Gran (auto) Imm/Tot Granulo (auto) Sodium Potassium Chloride Carbon Dioxide BUN Creatinine Estimated Creat Clear Estimated GFR Glucose Lactate 1.1 Calcium Total Bilirubin AST ALT Alkaline Phosphatase C-Reactive Protein Total Protein Albumin Procalcitonin
[2022-08-14] MEDS: SIMVASTATIN 20 MG TABLET PO (22:27)
[2022-08-15] VITALS (10 sets, daily range): BP systolic 125–159; BP diastolic 64–97; PULSE 59–80; RESP 18; TEMP 36.4–36.8; O2SAT 94–99
[2022-08-15] MEDS: HYDRALAZINE HCL 20 MG/ML inj 10 MG IVP ×2 (03:07→16:39)
--- NOTE | 2022-08-15 05:29 | P.IMPN_ITS ---
Subjective Date Seen: 08/15/22 Interval history: Fletcher Fierro Hospitalist Cross Cover Note eHospitalist was contacted by nursing staff with concern of elevated blood pressure 145/64. However when manual check was done the patient's blood pressure was 136/66. Per nursing report the patient is complaining of headache and blurry vision. Tylenol 1 g IV x1 ordered. Recheck manual blood pressure ordered for 30 minutes. [facility] you [facility] This service is available for further assistance as requested by your care team by calling [phone]. Exam Const: Vital Signs, click to edit/add: Vital Signs - 24 hr 08/14/22 07:00 08/14/22 09:00 08/14/22 13:00 Temperature 98.3 F Pulse Rate Pulse Rate [Left P ulse Oximeter] 55 L 47 L 58 L Respiratory Rate 16 16 16 Blood Pressure [Le ft Arm] 137/65 115/66 Pulse Oximetry 99 99 Oxygen Delivery Me thod Room Air Room Air 08/14/22 07:00 08/14/22 15:00 08/14/22 15:00 Temperature Pulse Rate 60 59 L Pulse Rate [Left P ulse Oximeter] 54 L Respiratory Rate 16 Blood Pressure [Le ft Arm] Pulse Oximetry Oxygen Delivery Me thod 08/14/22 16:00 08/14/22 20:00 08/14/22 23:00 Temperature 98.1 F 98.2 F Pulse Rate Pulse Rate [Left P ulse Oximeter] 54 L 66 66 Respiratory Rate 16 16 16 Blood Pressure [Le ft Arm] 144/85 H 150/78 H Pulse Oximetry 99 100 Oxygen Delivery Me thod Room Air Room Air 08/15/22 00:00 08/14/22 23:00 08/15/22 02:52 Temperature 97.6 F Pulse Rate 55 L 59 L Pulse Rate [Left P ulse Oximeter] 66 Respiratory Rate 18 Blood Pressure [Le ft Arm] 133/84 Pulse Oximetry 98 Oxygen Delivery Me thod Room Air 08/15/22 03:15 08/15/22 04:59 Temperature 97.6 F Pulse Rate Pulse Rate [Left P ulse Oximeter] 66 66 Respiratory Rate 18 18 Blood Pressure [Le ft Arm] 152/66 H 145/64 H Pulse Oximetry 99 98 Oxygen Delivery Me thod Room Air Room Air Labs Labs: Laboratory Results - last 24 hr 08/14/22 08/14/22 08/14/22 06:03 06:03 06:03 WBC 8.74 RBC 4.10 Hgb 12.7 Hct 38.5 MCV 94 MCH 31 MCHC 33 RDW Coeff of Rosales 12.6 Plt Count 168 Neut % (Auto) 53.3 Lymph % (Auto) 34.7 [place] % (Auto) 11.1 H Eos % (Auto) 0.3 Baso % (Auto) 0.5 Neut # (Auto) 4.66 Lymph # (Auto) 3.03 H [place] # (Auto) 1.00 H Eos # (Auto) 0.03 Baso # (Auto) 0.04 Abs Immat Gran (auto) 0.01 Imm/Tot Granulo (auto) 0.1 Sodium 135 Potassium 3.7 Chloride 106 Carbon Dioxide 24 BUN 19 Creatinine 0.7 Estimated Creat Clear 33.29 Estimated GFR 87 Glucose 130 H Lactate 1.1 Calcium 8.9 Total Bilirubin 1.1 AST 20 ALT 14 Alkaline Phosphatase 50 C-Reactive Protein < 0.5 L Total Protein 6.3 Albumin 3.7 Procalcitonin 0.07
[2022-08-15] MEDS: ACETAMINOPHEN 325 MG TABLET 975 MG PO (05:33)
--- NOTE | 2022-08-15 06:48 | PC.NURSE ---
: Pt has many questions/doubts regarding PRN hydralazine for her BP. Pt understands that the goal is for her SBP to be < 140, but she does not think that the IV medication is working and is frustrated that the medication has been needed when she was ?fine all day?. Pt also stating that when her IV is flushed that it is making her BP continue to stay elevated. Pt educated that the NS Flush given after IV medical center director is to ensure all medication is administered and to prevent blood clots. ? Pt c/o ARIZA at 0300, BP 152/66 at that time, hydralazine given, HOB elevated, pt declined Tylenol or cool wash cloth to forehead. [employer] asked ?is there anything else I can do for you? pt stated ?pray?. Pt offered Tylenol again at 530, pt accepted. ? 0500 Priya Called, updated with BP control with PRN hydralazine. Priya ordered IV Tylenol (pt stated no IV Tylenol and that she would prefer oral) and stated to call with BP updates as needed. Manul BP cuff used, 136/66 was the reading, pt wanted to compare with automatic cuff after, giving a reading of 133/63. Pt stated she liked the automatic one more and its ?better?. Manual BP taken again per priya for monitoring, 140/86. Pt again requested automatic, 137/82, ?see its better?. ? Tele : 1st degree HB, Balaji, Occasional PVCs. ? SBA with gb and walker. ? Echo scheduled 08/15.?
[2022-08-15 06:53] LABS: HCO3 VBG 27 mmol/L (21-28); Ionized Calcium* 1.12 mmol/L (1.11-1.30); PCO2 VBG 36 mmHG (40-50); PO2 VBG 62.9 mmHG (25-47); pH VBG 7.494 (7.32-7.43)
[2022-08-15 06:57] LABS: Basophils Absolute Auto 0.02 K/uL (0.00-0.30); Basophils Percent Auto 0.4 % (0.0-3.0); Eosinophils Absolute Auto 0.01 K/uL (0.00-0.50); Eosinophils Percent Auto 0.2 % (0.0-7.0); Hematocrit 40.4 % (33.0-51.0); Hemoglobin* 13.4 gm/dL (12.0-16.0); Immature Granulocytes Abs Auto 0.06 K/uL (0.00-0.30); Immature Granulocytes Pct Auto 1.1 %; Lymphocytes Percent Auto 25.7 % (20-44); Mean Corpuscular HGB Conc 33 gm/dL (32-36); Mean Corpuscular Hemoglobin 31 pg (26-34); Mean Corpuscular Volume 94 fL (80-100); Monocytes Percent Auto 6.8 % (0.0-11.0); Neutrophils Absolute Auto 3.59 K/uL (1.7-7.0); Neutrophils Percent Auto 65.8 % (42.0-72.0); Platelet Count* 165 K/uL (140-440); RDW Coefficient of Variation % 12.7 % (11.5-15.5); Red Blood Count 4.31 m/uL (4.00-5.20); White Blood Count* 5.45 K/uL (4.50-11.00)
[2022-08-15 07:13] LABS: Slide Review Reflex No
[2022-08-15 07:26] LABS: INR 1.08 (0.91-1.10); Prothrombin Time 14.6 Seconds
[2022-08-15 07:33] LABS: Chloride* 107 mmol/L (96-114); Sodium* 138 mmol/L (135-149)
[2022-08-15 07:34] LABS: Potassium* 3.8 mmol/L (3.6-5.1)
[2022-08-15 07:36] LABS: Bilirubin Total* 0.9 mg/dL (0.1-1.5); Creatinine* 0.5 mg/dL (0.5-1.5); Est. Creatinine Clearance* 33.29; Estimated Glomerular Filt Rate 94 ml/min
[2022-08-15 07:37] LABS: Alanine Aminotransferase* 15 U/L (4-35); Alkaline Phosphatase* 50 U/L (40-150); Aspartate Amino Transferase* 23 U/L (12-35); Blood Urea Nitrogen* 20 mg/dL (7-30); Calcium* 8.7 mg/dL (8.4-10.6); Carbon Dioxide* 27 mmol/L (20-32); Glucose* 174 mg/dL (60-115); Total Protein* 6.6 g/dL (6.0-8.3)
[2022-08-15 07:38] LABS: Magnesium* 2.2 mg/dL (1.5-2.6)
[2022-08-15 07:38] LABS: Hemoglobin A1C* 5.94 % (0-5.6)
[2022-08-15 07:43] LABS: NT Pro B Type NatriureticPept* 672 PG/mL (0-450)
[2022-08-15 07:46] LABS: Troponin I* 0.02 ng/mL (0.01-0.04)
[2022-08-15 07:47] LABS: C Reactive Protein* < 0.5 mg/dL (0.5-1.0); Erythrocyte SedimentationRate* 6 mm/hr (2-20)
[2022-08-15 07:51] LABS: Procalcitonin* 0.06 ng/mL (<0.50)
[2022-08-15 08:10] LABS: Thyroid Stimulating Hormone* 0.392 uIU/mL (0.270-4.20)
[2022-08-15] MEDS: IRBESARTAN 150 MG TABLET PO (08:45)
--- NOTE | 2022-08-15 11:06 | PM.IMPN1 ---
Progress Note: A&P Assessment and plan (1) Acute alteration in mental status: Problem details: Much improved Status: Acute (2) Silent micro-hemorrhage of brain: Problem details: MRI obtained 08/13/2022 and compared with previous MRI from earlier this month. Telephone consult with patient's neurologist was completed at admission. Attempt to transfer was made but unsuccessful. Fortunately, patient has had a tremendous improvement overnight. Concerns regarding prognosis and reoccurrence are high. Family, understandably so, would like his much assistance and consultation as possible. Status: Acute (3) History of CVA (cerebrovascular accident): Problem details: Complicated history of both hemorrhage and ischemic processes. This new MRI with this admission does look like new hemorrhages. Patient has an outpatient neurologist. She is seen in [place] by Dr. Barron. [facility]. We did speak with him yesterday. He said hold Plavix. Maintain blood pressure. Transfer to neuro service with any ongoing concerns presuming availability. Status: Chronic (4) Cerebral amyloid angiopathy: Status: Acute (5) Hypertension: Problem details: Goal to keep blood pressure 140/90 or less. Irbesartan re-started. IV hydralazine p.r.n.. Status: Chronic Assessment and Plan: 1. I added amlodipine 2.5 mg daily this morning as well. 2. Continue to monitor blood pressure closely while in hospital. Continue to make adjustments in antihypertensive medication regimen as warranted. (6) Elevated temperature: Problem details: Isolated. No white count. Inflammatory markers negative. Will stop antibiotics. Status: Acute (7) Cyst of pancreas: Problem details: MRI has been recommended as an outpatient, patient has not completed. Follows with PCP for this. Asymptomatic Status: Acute (8) Albuminuria: Status: Chronic (9) Malignant neoplasm of breast: Problem details: s/p lumpectomy 1998,then mastectomy 2008- unilatera Status: Resolved (10) Osteopenia: Status: Chronic (11) Sinus pause: Problem details: 5 sec in [place] Status: Acute (12) Sinus node dysfunction: Status: Chronic (13) Vitamin D deficiency: Status: Acute (14) Type 2 diabetes mellitus without obesity: Status: Chronic (15) Dyslipidemia: Status: Chronic (16) Bradycardia: Problem details: Chronic, asymptomatic Status: Chronic (17) Gluteal pain: Status: Acute Plan 1. Reviewed with patient. 2. Discussed with patient's daughter and son via telephone per patient's request. 3. Answered their questions their satisfaction. 4. Continue to work with physical and occupational therapy. Time Spent With Patient Total time spent: 50 minutes Subjective Time Seen by Provider: 08:30 Date Seen: 08/15/22 Interval history: Hospital day 3. 81-year-old woman who presented with acute altered mental status and was found to have multiple new intra cerebral small hemorrhages consistent with cerebral amyloid angiopathy and hypertension, in conjunction with fact that she takes the anti-platelet agent clopidogrel. Since admission her altered mental status has improved substantially. Her mental status is closer to baseline according to patient and family. She denies any chest heaviness, pressure, tightness, or pain. Denies syncope, near syncope, orthostasis, lightheadedness, or vertigo. Denies dyspnea at rest, paroxysmal nocturnal dyspnea, orthopnea, or dyspnea with exertion. Denies cough. Denies edema. No nausea or vomiting. Tolerating oral intake. Tolerating efforts to increase activity. Exam Narrative: Exam Narrative: Appears comfortable in no acute distress. Somewhat anxious. Talkative. Calling son and daughter to talk with them while I am visiting with her and so I can talk with them. In fact I did talk with the daughter, Shea, and her son, Reynaldo, via telephone. When the patient speaks with me she speaks in Azeri with a heavy [place]e accent. When she speaks with her children she speaks in her gakona language of [place]e. Alert and oriented to self, place, time, situation. Mood and affect are congruent. Vision and hearing are grossly normal. Dentition in fair repair. No icterus or conjunctival injection. Lungs are clear to auscultation without wheezing, rhonchi, or rales. Chest wall excursions are full. Heart tones with regular rhythm, normal S1-S2. PMI is not laterally displaced. Abdomen with active bowel sounds, soft, nontender. Extremities without edema. Capillary refill less than 3 seconds in upper extremities. Skin is warm, dry, intact. No cyanosis, petechiae, rash, or jaundice. No obvious focal motor neurologic deficits at this time when assessing upper and lower extremities. Const: Vital Signs, click to edit/add: Vital Signs - 24 hr 08/14/22 13:00 08/14/22 15:00 08/14/22 15:00 Temperature Pulse Rate 59 L Pulse Rate [Left P ulse Oximeter] 58 L 54 L Respiratory Rate 16 16 Blood Pressure [Le ft Arm] 115/66 Pulse Oximetry 99 Oxygen Delivery Me thod Room Air 08/14/22 16:00 08/14/22 20:00 08/14/22 23:00 Temperature 98.1 F 98.2 F Pulse Rate Pulse Rate [Left P ulse Oximeter] 54 L 66 66 Respiratory Rate 16 16 16 Blood Pressure [Le ft Arm] 144/85 H 150/78 H Pulse Oximetry 99 100 Oxygen Delivery Me thod Room Air Room Air 08/15/22 00:00 08/14/22 23:00 08/15/22 02:52 Temperature 97.6 F Pulse Rate 55 L 59 L Pulse Rate [Left P ulse Oximeter] 66 Respiratory Rate 18 Blood Pressure [Le ft Arm] 133/84 Pulse Oximetry 98 Oxygen Delivery Me thod Room Air 08/15/22 03:15 08/15/22 04:59 08/15/22 08:00 Temperature 97.6 F 97.8 F Pulse Rate Pulse Rate [Left P ulse Oximeter] 66 66 59 L Respiratory Rate 18 18 18 Blood Pressure [Le ft Arm] 152/66 H 145/64 H 153/97 H Pulse Oximetry 99 98 99 Oxygen Delivery Me thod Room Air Room Air Room Air 08/15/22 07:00 08/15/22 07:00 Temperature Pulse Rate 59 L Pulse Rate [Left P ulse Oximeter] 59 L Respiratory Rate 18 Blood Pressure [Le ft Arm] Pulse Oximetry Oxygen Delivery Me thod Documenting provider has reviewed patient's vital signs: yes Labs Labs: Laboratory Results - last 24 hr 08/15/22 08/15/22 08/15/22 04:00 05:54 05:54 WBC 5.45 RBC 4.31 Hgb 13.4 Hct 40.4 MCV 94 MCH 31 MCHC 33 RDW Coeff of Rosales 12.7 Plt Count 165 Neut % (Auto) 65.8 Lymph % (Auto) 25.7 [place] % (Auto) 6.8 Eos % (Auto) 0.2 Baso % (Auto) 0.4 Neut # (Auto) 3.59 Lymph # (Auto) 1.40 [place] # (Auto) 0.40 Eos # (Auto) 0.01 Baso # (Auto) 0.02 Abs Immat Gran (auto) 0.06 Imm/Tot Granulo (auto) 1.1 ESR 6 INR VBG pH VBG pCO2 VBG pO2 VBG HCO3 Sodium Potassium Chloride Carbon Dioxide BUN Creatinine Estimated Creat Clear Estimated GFR Glucose Hemoglobin A1c 5.94 H Calcium Ionized Calcium Thea Magnesium Total Bilirubin AST ALT Alkaline Phosphatase Troponin I C-Reactive Protein NT-Pro-B Natriuret Pep Total Protein Albumin Procalcitonin TSH 08/15/22 08/15/22 08/15/22 05:54 05:54 05:54 WBC RBC Hgb Hct MCV MCH MCHC RDW Coeff of Rosales Plt Count Neut % (Auto) Lymph % (Auto) [place] % (Auto) Eos % (Auto) Baso % (Auto) Neut # (Auto) Lymph # (Auto) [place] # (Auto) Eos # (Auto) Baso # (Auto) Abs Immat Gran (auto) Imm/Tot Granulo (auto) ESR INR 1.08 VBG pH 7.494 H VBG pCO2 36 L VBG pO2 62.9 H VBG HCO3 27 Sodium 138 Potassium 3.8 Chloride 107 Carbon Dioxide 27 BUN 20 Creatinine 0.5 Estimated Creat Clear 33.29 Estimated GFR 94 Glucose 174 H Hemoglobin A1c Calcium 8.7 Ionized Calcium Thea 1.12 Magnesium 2.2 Total Bilirubin 0.9 AST 23 ALT 15 Alkaline Phosphatase 50 Troponin I 0.02 C-Reactive Protein < 0.5 L NT-Pro-B Natriuret Pep 672 H Total Protein 6.6 Albumin 4.0 Procalcitonin 0.06 TSH 08/15/22 05:54 WBC RBC Hgb Hct MCV MCH MCHC RDW Coeff of Rosales Plt Count Neut % (Auto) Lymph % (Auto) [place] % (Auto) Eos % (Auto) Baso % (Auto) Neut # (Auto) Lymph # (Auto) [place] # (Auto) Eos # (Auto) Baso # (Auto) Abs Immat Gran (auto) Imm/Tot Granulo (auto) ESR INR VBG pH VBG pCO2 VBG pO2 VBG HCO3 Sodium Potassium Chloride Carbon Dioxide BUN Creatinine Estimated Creat Clear Estimated GFR Glucose Hemoglobin A1c Calcium Ionized Calcium Thea Magnesium Total Bilirubin AST ALT Alkaline Phosphatase Troponin I C-Reactive Protein NT-Pro-B Natriuret Pep Total Protein Albumin Procalcitonin TSH 0.392
[2022-08-15] MEDS: SODIUM CHLORIDE 0.9 % (FLUSH) 10 ML SYRINGE 5 ML IVF ×2 (11:08→21:10)
[2022-08-15] MEDS: AMLODIPINE 5 MG TABLET 2.5 MG PO (11:31)
--- NOTE | 2022-08-15 13:30 | PC.NURSE ---
BP DECREASED WITH AM MED PASS, NEW DOSE AMLODIPINE INITIATED WELL TODAY. PT HESITANT TO TAKE BUT AFTER EDUCATION AND CONFIRMING WITH MD FOR PATIENT, PT WAS WILLING. SBA AND STEAD ON FEET. UP TO BR TO VOID WITH WALKER AND GB.
[2022-08-15] MEDS: SIMVASTATIN 20 MG TABLET PO (21:06)
[2022-08-16] MEDS: HYDRALAZINE HCL 20 MG/ML inj 10 MG IVP (02:53)
[2022-08-16 03:00] VITALS: BP 165/83; PULSE 91; RESP 18; TEMP 36.8; O2SAT 99
--- NOTE | 2022-08-16 06:27 | PC.NURSE ---
Shift note: Pt is very cooperative with treatment and care. Bp at 0300 recorded 165/83 and Hydralazine given as ordered. Denied any pain
[2022-08-16 07:00] VITALS: BP 137/75; PULSE 68; RESP 18; TEMP 36.6; O2SAT 98
[2022-08-16] MEDS: AMLODIPINE 5 MG TABLET PO (08:55)
[2022-08-16] MEDS: IRBESARTAN 150 MG TABLET PO (08:55)
--- NOTE | 2022-08-16 10:52 | PM.IMPN1 ---
Progress Note: A&P Assessment and plan (1) Acute alteration in mental status: Problem details: Much improved Status: Acute (2) Silent micro-hemorrhage of brain: Problem details: MRI obtained 08/13/2022 and compared with previous MRI from earlier this month. Telephone consult with patient's neurologist was completed at admission. Attempt to transfer was made but unsuccessful. Fortunately, patient has had a tremendous improvement overnight. Concerns regarding prognosis and reoccurrence are high. Family, understandably so, would like his much assistance and consultation as possible. Status: Acute (3) History of CVA (cerebrovascular accident): Problem details: Complicated history of both hemorrhage and ischemic processes. This new MRI with this admission does look like new hemorrhages. Patient has an outpatient neurologist. She is seen in [place] by Dr. Barron. [facility]. We did speak with him yesterday. He said hold Plavix. Maintain blood pressure. Transfer to neuro service with any ongoing concerns presuming availability. Status: Chronic (4) Cerebral amyloid angiopathy: Status: Acute (5) Hypertension: Problem details: Goal to keep blood pressure 140/90 or less. Irbesartan re-started. IV hydralazine p.r.n.. Status: Chronic Assessment and Plan: I increase the dose of the amlodipine from 2.5 mg daily to 5 mg daily starting this morning. Continue with irbesartan 150 mg daily. (6) Elevated temperature: Problem details: Isolated. No white count. Inflammatory markers negative. Will stop antibiotics. Status: Acute (7) Cyst of pancreas: Problem details: MRI has been recommended as an outpatient, patient has not completed. Follows with PCP for this. Asymptomatic Status: Acute (8) Albuminuria: Status: Chronic (9) Malignant neoplasm of breast: Problem details: s/p lumpectomy 1998,then mastectomy 2008- unilatera Status: Resolved (10) Osteopenia: Status: Chronic (11) Sinus pause: Problem details: 5 sec in [place] Status: Acute (12) Sinus node dysfunction: Status: Chronic Assessment and Plan: Has had no pauses here. Will stop telemetry today. (13) Vitamin D deficiency: Status: Acute (14) Type 2 diabetes mellitus without obesity: Status: Chronic (15) Dyslipidemia: Status: Chronic (16) Bradycardia: Problem details: Chronic, asymptomatic Status: Chronic (17) Gluteal pain: Status: Acute (18) Muscle tension headache: Status: Acute Assessment and Plan: Discuss gentle massage and warm pack and cold pack therapy locally to the affected area of the scalp. Continue with as needed acetaminophen. (19) Adjustment reaction with anxious mood: Status: Acute Plan 1. Reviewed with patient. 2. If patient condition remains stable it is possible she may be in a position to be discharged back home in the next 24-48 hours. Time Spent With Patient Total time spent: 40 minutes Subjective Time Seen by Provider: 08:00 Date Seen: 08/16/22 Interval history: Hospital day 4. 81-year-old woman who presented with acute altered mental status and was found to have multiple new intra cerebral small hemorrhages consistent with cerebral amyloid angiopathy and hypertension, in conjunction with fact that she takes the anti-platelet agent clopidogrel. Since admission her altered mental status has improved substantially. Her mental status is closer to baseline according to patient and family. She is concerned about a left sided headcache this morning, which she first noticed around 3 AM today when she awakened to go to the bathroom. The headache feel a little better if she rubs the area. She is concerned that she might be having more strokes. She denies any focal motor deficits, including weakness, dysequillibrium, diplopia, visual loss, or loss of swallowing or speaking abilities. She denies fever, rigors, or diaphoresis. Denies dysuria, urgency, frequency, or hematuria. Denies diarrhea or constipation. She denies any chest heaviness, pressure, tightness, or pain. Denies syncope, near syncope, orthostasis, lightheadedness, or vertigo. Denies dyspnea at rest, paroxysmal nocturnal dyspnea, orthopnea, or dyspnea with exertion. Denies cough. Denies edema. No nausea or vomiting. Tolerating oral intake. Tolerating efforts to increase activity. Exam Narrative: Exam Narrative: Appears comfortable and in no acute distress. Ambulates and transfers independently with use of her walker. No obvious focal motor neurologic deficits. Alert, oriented to self, place, time, situation. Anxious disposition, nevertheless friendly, cooperative, articulate. Mood and affect are congruent. Cranial nerves 3-12 are grossly normal. Vision appears to be grossly normal as well. Pupils equally round and reactive to light and accommodation. Extraocular muscles are intact. No tremor, asterixis, or ataxia. With gentle massage over the left parietal temporal area of her scalp she notes a decrease in discomfort in that area. Lungs are clear to auscultation. Heart tones with regular rhythm. Abdomen with active bowel sounds, soft, nontender. Extremities without edema. Skin is warm, dry, intact. No rashes, petechiae, cyanosis, or jaundice. Const: Vital Signs, click to edit/add: Vital Signs - 24 hr 08/15/22 11:00 08/15/22 15:00 08/15/22 15:00 Temperature 97.8 F 98.1 F Pulse Rate Pulse Rate [Left P ulse Oximeter] 64 59 L 59 L Respiratory Rate 18 18 18 Blood Pressure [Le ft Arm] 134/85 159/89 H Pulse Oximetry 99 97 Oxygen Delivery Me thod Room Air Room Air 08/15/22 15:00 08/15/22 19:00 08/15/22 23:00 Temperature 97.6 F Pulse Rate 59 L 62 Pulse Rate [Left P ulse Oximeter] 80 Respiratory Rate 18 Blood Pressure [Le ft Arm] 125/91 H Pulse Oximetry 97 Oxygen Delivery Me thod Room Air 08/15/22 23:00 08/15/22 23:00 08/16/22 03:00 Temperature 98.2 F 98.2 F Pulse Rate Pulse Rate [Left P ulse Oximeter] 80 77 91 Respiratory Rate 18 18 18 Blood Pressure [Le ft Arm] 138/79 165/83 H Pulse Oximetry 94 99 Oxygen Delivery Me thod Room Air Room Air Documenting provider has reviewed patient's vital signs: yes
[2022-08-16 11:00] VITALS: BP 125/94; PULSE 73; RESP 18; TEMP 36.6; O2SAT 98
[2022-08-16] MEDS: METFORMIN 500 MG TABLET PO ×2 (12:17→20:59)
[2022-08-16 15:00] VITALS: BP 125/92; PULSE 85; RESP 18; TEMP 36.7; O2SAT 98
--- NOTE | 2022-08-16 18:52 | PC.NURSE ---
Pt. alert and oriented x4, pleasant and cooperative. Ambulate in hallway and tolerated activity well. Pt. has not had a BM since sunday 08/12 and verbalized that she would like to have prune juice. Pt. Afebrile this shift, BP wnl. Pt. refused sliding scale novolog. Pt. only takes Metformin when eating. refused to take any other time. Pt. up indep. in room to BR several times throughout shift. Pt. denies any pain N/V/SOB.
[2022-08-16 19:00] VITALS: BP 126/93; PULSE 74; RESP 16; TEMP 36.7; O2SAT 99
[2022-08-16] MEDS: SIMVASTATIN 20 MG TABLET PO (20:59)
[2022-08-16] MEDS: polyethylene glycoL 3350 17 GM PACK PO (20:59)
[2022-08-16 23:00] VITALS: BP 145/75; PULSE 53; RESP 14; TEMP 36.8; O2SAT 100
[2022-08-17 03:40] VITALS: BP 142/92; PULSE 58; RESP 14; TEMP 36.7; O2SAT 100
--- NOTE | 2022-08-17 07:52 | PC.NURSE ---
END OF SHIFT NOTE: PT PLEASANT AND COOPERATIVE WITH CARES. LSCTA. PT C/O NO BM; PRN MIRALAX ADMINISTERED. PT SLEPT THROUGHOUT NIGHT WELL. AMBULATES IN ROOM INDEPENDENTLY WITH WALKER.
[2022-08-17 08:09] VITALS: BP 153/84; PULSE 48; RESP 18; TEMP 36.7; O2SAT 97
[2022-08-17] MEDS: AMLODIPINE 5 MG TABLET PO (08:48)
[2022-08-17] MEDS: polyethylene glycoL 3350 17 GM PACK PO (08:48)
[2022-08-17] MEDS: METFORMIN 500 MG TABLET PO ×2 (08:48→20:19)
[2022-08-17] MEDS: IRBESARTAN 150 MG TABLET PO (08:48)
[2022-08-17] MEDS: MAGNESIUM HYDROXIDE 30 ML ORAL.SUSP PO (08:49)
[2022-08-17] MEDS: SODIUM CHLORIDE 0.9 % (FLUSH) 10 ML SYRINGE 5 ML IVF ×2 (10:12→21:48)
[2022-08-17] MEDS: bisacodyL 10 MG SUPP.RECT PR (10:12)
[2022-08-17 13:29] VITALS: BP 121/78; PULSE 65; RESP 16; TEMP 36.4; O2SAT 98
[2022-08-17 15:00] VITALS: BP 122/65; PULSE 60; RESP 18; TEMP 37; O2SAT 100
--- NOTE | 2022-08-17 15:54 | PC.SOCIAL ---
Discharge planning- Phone call to pt's son, Jaison. Discussed discharge planning. Jaison states that he is concerned about his mother being alone, but he is unsure what the plan will be as he needs to speak with his sister, Shea. Jaison asks this worker to reach out to Shea at [phone]. Phone call to Shea. Shea states that she is unable to take her mother into her home until next Wednesday due to various obligations. Shea hopes that her brother, Jaison, can take her mother into his home as Shea states that the pt wishes to be with family to get her care. Shea states that they have cultural beliefs that family takes care of family and they do not wish to have pt go to SNF. This worker will follow up with pt and pt's son to discuss discharge plans. Met with pt, MD, and pt's son in pt's room. Pt's son, Jaison, will work with his family to come up with a safe discharge plan for tomorrow (08/18/22). Pt will discharge to either son's home or to pt's home with pt's granddaughter staying with her at her home. Jaison will discuss and set everything up tonight. Pt will discharge tomorrow at 10:00 am. Jaison will come to the hospital in the morning to transport pt. Provided an update to charge nurse. Phone call to Pt's daughter, Shea, left voicemail providing her with discharge update.
--- NOTE | 2022-08-17 17:06 | PM.IMPN1 ---
Progress Note: A&P Assessment and plan (1) Acute alteration in mental status: Problem details: Much improved Status: Acute (2) Silent micro-hemorrhage of brain: Problem details: MRI obtained 08/13/2022 and compared with previous MRI from earlier this month. Telephone consult with patient's neurologist was completed at admission. Attempt to transfer was made but unsuccessful. Fortunately, patient has had a tremendous improvement overnight. Concerns regarding prognosis and reoccurrence are high. Family, understandably so, would like his much assistance and consultation as possible. Status: Acute (3) History of CVA (cerebrovascular accident): Problem details: Complicated history of both hemorrhage and ischemic processes. This new MRI with this admission does look like new hemorrhages. Patient has an outpatient neurologist. She is seen in [place] by Dr. Barron. [facility]. We did speak with him yesterday. He said hold Plavix. Maintain blood pressure. Transfer to neuro service with any ongoing concerns presuming availability. Status: Chronic (4) Cerebral amyloid angiopathy: Status: Acute (5) Hypertension: Problem details: Goal to keep blood pressure 140/90 or less. Irbesartan re-started. Has not required IV hydralazine p.r.n.. Status: Chronic (6) Elevated temperature: Problem details: Isolated. No white count. Inflammatory markers negative. Will stop antibiotics. Status: Acute (7) Cyst of pancreas: Problem details: MRI has been recommended as an outpatient, patient has not completed. Follows with PCP for this. Asymptomatic Status: Acute (8) Albuminuria: Status: Chronic (9) Malignant neoplasm of breast: Problem details: s/p lumpectomy 1998,then mastectomy 2009- unilatera Status: Resolved (10) Osteopenia: Status: Chronic (11) Sinus pause: Problem details: [facility] Status: Acute (12) Sinus node dysfunction: Status: Chronic (13) Vitamin D deficiency: Status: Acute (14) Type 2 diabetes mellitus without obesity: Status: Chronic (15) Dyslipidemia: Status: Chronic (16) Bradycardia: Problem details: Chronic, asymptomatic Status: Chronic (17) Gluteal pain: Status: Acute (18) Muscle tension headache: Status: Acute (19) Adjustment reaction with anxious mood: Status: Acute (20) Constipation: Status: Acute Plan 1. Reviewed impression with patient and her son, Jaison 2. Answered their questions. Spent a good 40 minutes speaking with him today. 3. Patient's family is ready to receive the patient tomorrow, not today. 4. Anticipate discharge tomorrow when we have a safe discharge disposition plan in place. 5. Patient and son are not agree a mint with plans and recommendations. Time Spent With Patient Total time spent: Fifty minutes Subjective Time Seen by Provider: 08:00 Date Seen: 08/17/22 Interval history: Hospital day 5. 81-year-old woman who presented with acute altered mental status and was found to have multiple new intra cerebral small hemorrhages consistent with cerebral amyloid angiopathy and hypertension, in conjunction with fact that she takes the anti-platelet agent clopidogrel. Since admission her altered mental status has improved substantially. Her mental status is closer to baseline according to patient and family. Feels better today. Headache is resolved. She denies any focal motor deficits, including weakness, dysequillibrium, diplopia, visual loss, or loss of swallowing or speaking abilities. She denies fever, rigors, or diaphoresis. Denies dysuria, urgency, frequency, or hematuria. Denies diarrhea or constipation. Tolerating ambulating in her room without difficulties. She denies any chest heaviness, pressure, tightness, or pain. Denies syncope, near syncope, orthostasis, lightheadedness, or vertigo. Denies dyspnea at rest, paroxysmal nocturnal dyspnea, orthopnea, or dyspnea with exertion. Denies cough. Denies edema. No nausea or vomiting. Tolerating oral intake. Exam Narrative: Exam Narrative: Alert, oriented to self, place, time, situation. No acute distress, appears comfortable. Tolerating increased movement in her room. No focal motor neurologic deficits. Lungs clear to auscultation. Heart tones with regular rhythm. Abdomen with active bowel sounds, soft, nontender. Extremities without edema. Skin is warm, dry and intact. Const: Vital Signs, click to edit/add: Vital Signs - 24 hr 08/16/22 19:00 08/16/22 23:00 08/16/22 23:00 Temperature 98.1 F 98.3 F Pulse Rate [Left P ulse Oximeter] 74 53 L 53 L Respiratory Rate 16 14 14 Blood Pressure [Le ft Arm] 126/93 H 145/75 H Pulse Oximetry 99 100 Oxygen Delivery Me thod Room Air Room Air 08/17/22 03:40 08/17/22 08:09 08/17/22 13:29 Temperature 98.1 F 98.0 F 97.6 F Pulse Rate [Left P ulse Oximeter] 58 L 48 L 65 Respiratory Rate 14 18 16 Blood Pressure [Le ft Arm] 142/92 H 153/84 H 121/78 Pulse Oximetry 100 97 98 Oxygen Delivery Me thod Room Air Room Air Room Air 08/17/22 15:00 Temperature Pulse Rate [Left P ulse Oximeter] 60 Respiratory Rate 18 Blood Pressure [Le ft Arm] Pulse Oximetry Oxygen Delivery Me thod Documenting provider has reviewed patient's vital signs: yes
[2022-08-17 19:00] VITALS: BP 109/84; PULSE 50; RESP 24; TEMP 36.7; O2SAT 97
[2022-08-17] MEDS: SIMVASTATIN 20 MG TABLET PO (21:48)
[2022-08-17 23:00] VITALS: BP 125/71; PULSE 53; RESP 18; TEMP 36.4; O2SAT 99
--- NOTE | 2022-08-17 23:31 | PC.NURSE ---
Nursing Care Hours [id number] Pt this shift is up independently in her room. Per pt report, Medium BM today. Day shift supplied suppository and miralax, pt still requesting more for this evening after BM, encouraged to walk halls and drink some prune juice. Pt accepting and said she will ask in morning if still no more BM. Refused evening blood sugar check. Alert and oriented, calm and cooperative. Blood pressure WNL.
[2022-08-18 02:56] VITALS: BP 127/64; PULSE 43; RESP 16; TEMP 36.6; O2SAT 97
--- NOTE | 2022-08-18 05:08 | PC.NURSE ---
[id number] Pt slept well between vitals, cooperative with cares, denies any pain, BP <140/90 at each check.
[2022-08-18 07:53] VITALS: BP 139/88; PULSE 47; RESP 16; TEMP 36.6; O2SAT 99
[2022-08-18] MEDS: METFORMIN 500 MG TABLET PO (08:11)
[2022-08-18] MEDS: AMLODIPINE 5 MG TABLET PO (08:25)
[2022-08-18] MEDS: IRBESARTAN 150 MG TABLET PO (08:25)
[2022-08-18] MEDS: polyethylene glycoL 3350 17 GM PACK PO (08:26)
[2022-08-18] MEDS: SODIUM CHLORIDE 0.9 % (FLUSH) 10 ML SYRINGE 5 ML IVF (08:26)
[2022-08-18 10:57] VITALS: BP 168/79; PULSE 62; RESP 16; TEMP 36.6
--- NOTE | 2022-08-18 10:59 | PC.NURSE ---
Shift Summary: Patient pleasant and cooperative. Up inndependently, vitals stable and WNL, tolerating regular diet. Denies pain/SOB. IV removed in left wrist. Discharge instructions, medications and follow ups reviewed with patient and her son. Discharged from floor @ 1055 via wheelchair, discharged to home.
--- NOTE | 2022-08-19 13:39 | PM.DS1 ---
DS: Providers Provider Time Seen by Provider: 10:00 Date Seen: 08/18/22 Date of admission: 08/13/22 17:03 Primary care physician: Leda Anderson MD Admitting Clinician: Meme Berkowitz MD Consults: 08/13/22 17:02 Consult to Physical Therapy [CONS] Routine Comment: Reason(s) for PT Consult:: Evaluate and Treat Any Restrictions?:: Wt Bearing as Tolerated Consult to Legal Administrative Assistant [CONS] Routine Comment: Reason for Consult:: Discharge Planning Needs Consult to Speech Therapy [CONS] Routine Comment: Reason(s) for Speech Consult:: Speaking Difficulty 08/13/22 17:06 Consult to Occupational Therapy [CONS] Routine Comment: Reason(s) for OT Consult:: Evaluate and Treat Any Restrictions?:: Wt Bearing as Tolerated Attending Physician on discharge: Lance Aguirre MD Date of Discharge: 08/18/22 DS: Diagnosis Discharge Diagnosis (1) Acute alteration in mental status: Status: Acute Problem details: Much improved (2) Silent micro-hemorrhage of brain: Status: Acute Problem details: MRI obtained 08/13/2022 and compared with previous MRI from earlier this month. Telephone consult with patient's neurologist was completed at admission. Attempt to transfer was made but unsuccessful. Fortunately, patient has had a tremendous improvement overnight. Concerns regarding prognosis and reoccurrence are high. Family, understandably so, would like his much assistance and consultation as possible. (3) History of CVA (cerebrovascular accident): Status: Chronic Problem details: Complicated history of both hemorrhage and ischemic processes. This new MRI with this admission does look like new hemorrhages. Patient has an outpatient neurologist. She is seen in [place] by Dr. Barron. [facility]. We did speak with him yesterday. He said hold Plavix. Maintain blood pressure. Transfer to neuro service with any ongoing concerns presuming availability. (4) Hypertension: Status: Chronic Problem details: Goal to keep blood pressure 140/90 or less. Irbesartan re-started. Has not required IV hydralazine p.r.n.. (5) Cerebral amyloid angiopathy: Status: Acute (6) Muscle tension headache: Status: Acute (7) Sinus pause: Status: Acute Problem details: 5 sec in [place] (8) Sinus node dysfunction: Status: Chronic (9) Type 2 diabetes mellitus without obesity: Status: Chronic (10) Bradycardia: Status: Chronic Problem details: Chronic, asymptomatic (11) Dyslipidemia: Status: Chronic (12) Vitamin D deficiency: Status: Acute (13) Osteopenia: Status: Chronic (14) Malignant neoplasm of breast: Status: Resolved Problem details: s/p lumpectomy 1998,then mastectomy 2009- unilatera (15) Albuminuria: Status: Chronic (16) Polyp of colon: Status: Chronic Problem details: 06/2020, recommend 6 months FU, patient declines, will make appointment when she wants maybe later (17) Adjustment reaction with anxious mood: Status: Acute (18) Constipation: Status: Acute (19) Cyst of pancreas: Status: Acute Problem details: MRI has been recommended as an outpatient, patient has not completed. Follows with PCP for this. Asymptomatic DS: Summary Hospital Course Hospital Course: Upon arrival, patient went straight to head CT and CTA which were unremarkable. IV was established we started IV fluids, Zofran after patient had a vomiting episode. Patient was able to fall asleep and she rested periodically on and off while she was down here. Her lab work was unremarkable. Her mentation remained the same. We did proceed also with a brain MRI, which demonstrated the followin. No acute ischemia or other acute intracranial pathology. 2. 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 Mostly new since 2014. 3. Moderate chronic microvascular ischemic changes within the supratentorial white matter and brainstem. Progressed since 2014. 4. Moderate generalized parenchymal volume loss with more advanced atrophy of the hippocampal formations. Progressed since 2014. With the above-stated MRI findings, we were able to reach out and discuss her case with her neurologist, Dr. Barron. Dr. Barron recommended admission, work with physical occupational therapy, and observe closely with goal of trying to keep systolic blood pressure less than 140. To the course hospitalization we gradually added increasing antihypertensives given her tendency to have systolics between 140 and 160. On presentation she was on irbesartan only 150 mg once daily. By discharge she remained on the same dose of irbesartan plus we had added a total of 5 mg of amlodipine once daily. This was a gradual increase in the dose of the amlodipine. She tolerated without any adverse effects. We did have to modify her bowel regimen due to propensity for constipation. Tolerated this as well. Status at Discharge Functional status at discharge: independent ambulation Overall status at discharge: patient is progressing back to baseline Time Spent with Patient Time attestation: Total time spent providing and/or coordinating discharge services: Time spent: Greater than 30 minutes Exam Narrative: Exam Narrative: 81-year-old woman who presented with acute altered mental status and was found to have multiple new intra cerebral small hemorrhages consistent with cerebral amyloid angiopathy and hypertension, in conjunction with fact that she takes the anti-platelet agent clopidogrel.? Since admission her altered mental status has improved substantially.? Her mental status is closer to baseline according to patient and family. Feels better today.? Headache is resolved.? She denies any focal motor deficits, including weakness, dysequillibrium, diplopia, visual loss, or loss of swallowing or speaking abilities.? She denies fever, rigors, or diaphoresis.? Denies dysuria, urgency, frequency, or hematuria.? Denies diarrhea or constipation.? Tolerating ambulating in her room without difficulties. She denies any chest heaviness, pressure, tightness, or pain.? Denies syncope, near syncope, orthostasis, lightheadedness, or vertigo.? Denies dyspnea at rest, paroxysmal nocturnal dyspnea, orthopnea, or dyspnea with exertion.? Denies cough.? Denies edema.? No nausea or vomiting.? Tolerating oral intake. Exam Narrative:?? Exam Narrative: Al ert, oriented to s elf, place, time, situation.? No acu te distress, appea rs comfortable.? T olerating increase d movement in her room.? No focal mo tor neurologic def icits.? Lungs judah r to auscultation. ? Heart tones with regular rhythm.? Abdomen with activ e bowel sounds, so ft, nontender.? Ex tremities without edema.? Skin is wa rm, dry and intact . Const: Documenting provider has reviewed patient's vital signs: yes Discharge Plan Discharge Disposition: Home, Self-Care Date of Admission: 08/13/22 17:03 Attending Provider on Discharge: Lance Aguirre Primary Care Provider: Leda Anderson Condition: Improved Anticipated Discharge Date/Time: 08/18/22 09:00 Discharge Medications: New polyethylene glycol 3350 [Miralax] 17 gram Powder In Packet 17 g PO DAILY Qty: 30 0RF amlodipine 5 mg Tablet 5 mg PO DAILY Qty: 30 0RF Continued cholecalciferol (vitamin D3) 50 mcg (2,000 unit) tablet 50 mcg PO DAILY metformin 500 mg tablet 500 mg PO BIDWM omega-3 fatty acids 500 mg capsule 500 mg PO QDAY calcium carbonate [Calcium 600] 600 mg calcium (1,500 mg) tablet 600 mg PO QDAY irbesartan 150 mg tablet 150 mg PO DAILY Discontinued flaxseed oil 1,000 mg capsule 1,000 mg PO QDAY Rx Instructions: administer with a meal clopidogrel [Plavix] 75 mg tablet 75 mg PO DAILY No Action (DME) lancets [Microlet Lancet] Misc See Rx Instructions .ROUTE Rx Instructions: DX CODE: E11.9 (DME) Diabetic Test Strips Misc See Rx Instructions .Route Qty: 300 3RF Rx Instructions: Patient to test BID-TID simvastatin 20 mg tablet 20 mg PO HS Qty: 90 0RF Discharge Orders: Discharge Order (Routine); Ordered 08/18/22 Ordered By: Lance Aguirre Patient Education: Amlodipine (By mouth), Polyethylene Glycol 3350 (By mouth) (MiraLAX, Healthylax..., Constipation (GEN), Hypertension (GEN) Activity Level: Activity as Tolerated and No strenuous activity Discharge Diet: Heart Healthy (2 gm sodium, low fat) Follow Up Appointments: Frandy Chance MD [Staff Physician] - 08/26/22 9:45 am Leda Anderson MD [Primary Care Provider] - (PCP out of office) Forms: [employer] Info Instructions
== END 2022-08-18 10:55 | disposition home or self-care (01) | DRG 65 ==
LOC: ED 15:09 → MEDSURG 16:20
PROVIDERS: Family Medicine; Admitting Provider Family Medicine; Emergency Provider Family Medicine; PCP Family Medicine; Visit Provider Family Medicine
DX: I61.8 Other nontraumatic intracerebral hemorrhage (principal); E85.4 Organ-limited amyloidosis; K86.2 Cyst of pancreas; I68.0 Cerebral amyloid angiopathy; R41.82 Altered mental status, unspecified; R53.1 Weakness; I10 Essential (primary) hypertension; E11.9 Type 2 diabetes mellitus without complications; R00.1 Bradycardia, unspecified; R50.9 Fever, unspecified; G44.209 Tension-type headache, unspecified, not intractable; F43.22 Adjustment disorder with anxiety; M85.80 Other specified disorders of bone density and structure, unspecified site; E55.9 Vitamin D deficiency, unspecified; M79.18 Myalgia, other site; Z86.73 Personal history of transient ischemic attack (TIA), and cerebral infarction without residual deficits; R80.9 Proteinuria, unspecified; E05.90 Thyrotoxicosis, unspecified without thyrotoxic crisis or storm; E78.5 Hyperlipidemia, unspecified; Z90.10 Acquired absence of unspecified breast and nipple; Z85.72 Personal history of non-Hodgkin lymphomas; Z85.3 Personal history of malignant neoplasm of breast; K59.00 Constipation, unspecified; K63.5 Polyp of colon; I08.1 Rheumatic disorders of both mitral and tricuspid valves
CPT/HCPCS: 36415; 70450; 70496; 70498; 70551; 80048; 80053; 80076; 80179; 80306; 81001; 82077; 82330; 82803; 82962; 83036; 83605; 83690; 83735; 83880; 84145; 84443; 84484; 85025; 85610; 85651; 86140; 87040; 87086; 87631; 93005; 93306; 94761; 96374; 97110; 97112; 97116; 97129; 97162; 97165; 97530; 97535; 99285; 99291; G0378; A9270; J0360; J2060; J2405; J2543; J7050; J7120; Q9967

== ENCOUNTER 2022-12-01 14:32 | Outpatient (CLI) | payer MEDICARE, BC, SELFPAY | END 2022-12-01 14:33 | disposition home or self-care (01) | PROVIDERS: PCP Family Medicine; Visit Provider Family Medicine | DX: R10.11 Right upper quadrant pain (principal); K59.00 Constipation, unspecified; K86.2 Cyst of pancreas | CPT/HCPCS: 80053; 82150; 83690 ==

== ENCOUNTER 2022-12-16 08:37 | Outpatient (CLI) | payer MEDICARE, BC, SELFPAY ==
--- NOTE | 2022-12-16 08:45 | CRLHL7_ITS ---
For Patients: As a result of the Century Cures Act, medical imaging exams and procedure reports are released immediately into your electronic medical record. You may view this report before your referring provider. If you have questions, please contact your health care provider. INDICATION: RUQ pain, hx. of pancreatic cysts. COMPARISON: CT 01/31/2022 TECHNIQUE: Real time skaggs scale imaging and color Doppler analysis was performed of the right upper quadrant. FINDINGS: The patient`s liver is of normal size and has mildly coarsened echogenicity. There is a normal appearance of the hepatic IVC and proximal abdominal aorta. There is no evidence of ascites. The gallbladder is of normal size and there is no measuring up to 1.5 cm. Evidence of intraluminal stones or sludge. The gallbladder wall measures 2 mm in thickness. The common bile duct is of normal size and measures 3 mm in diameter at the level of the edgar hepatis. The pancreas appears similar with atrophy of the parenchyma and multiple cysts there is no evidence of a stone or hydronephrosis within the right kidney. The right kidney measures 10.1 cm in length. Incidental extrarenal pelvis is again noted. IMPRESSION: Similar appearance of the pancreatic cysts compared to the prior CT study. Mild coarsening of the hepatic echotexture suggesting mild fatty infiltration. Normal appearance of the gallbladder. Dictated by Darío Payton MD @ 12/16/2022 10:35:35 AM (Electronically Signed)
== END 2022-12-16 08:38 | disposition home or self-care (01) ==
PROVIDERS: PCP Family Medicine; Visit Provider Family Medicine
DX: R10.11 Right upper quadrant pain (principal); K86.2 Cyst of pancreas
CPT/HCPCS: 76705

== ENCOUNTER 2023-01-26 14:52 | Outpatient (CLI) | payer MEDICARE, BC, SELFPAY ==
--- NOTE | 2023-01-26 15:00 | CRLHL7_ITS ---
For Patients: As a result of the Century Cures Act, medical imaging exams and procedure reports are released immediately into your electronic medical record. You may view this report before your referring provider. If you have questions, please contact your health care provider. BILATERAL SCREENING MAMMOGRAM WITH COMPUTER-AIDED DETECTION AND TOMOSYNTHESIS TECHNIQUE: CC and MLO views were obtained. These mammographic images have been obtained using full-field digital technique. These mammographic images were interpreted with the benefit of computer-aided detection. Breast Tomosynthesis was used in this interpretation. COMPARISON FILM: 02/18/22, 02/09/22, 02/04/22. FINDINGS: The breasts are heterogeneously dense, which may obscure small masses IMPRESSION: There is no radiographic evidence for malignancy. ASSESSMENT: BI-RADS Category 1: Negative RECOMMENDATION: Routine screening mammogram in 1 year. A lay language report of this examination will be provided to the patient. Darío Payton M.D. Diagnostic Radiologist [email or web address] ALYSSA/uday Transcribed: 1:45 p.mBill frye/Dictated by: Darío Payton MD @ 01/27/2023 11:02:00 AM (Electronically Signed)
== END 2023-01-26 14:53 | disposition home or self-care (01) ==
PROVIDERS: PCP Family Medicine; Visit Provider Family Medicine
DX: Z12.31 Encounter for screening mammogram for malignant neoplasm of breast (principal); R92.2 Inconclusive mammogram
CPT/HCPCS: 77063; 77067

== ENCOUNTER 2023-08-06 09:53 | Outpatient (CLI) | payer MEDICARE, BC, SELFPAY | END 2023-08-06 09:54 | disposition home or self-care (01) | PROVIDERS: PCP Family Medicine; Visit Provider Family Medicine | DX: I10 Essential (primary) hypertension (principal); E78.5 Hyperlipidemia, unspecified; E55.9 Vitamin D deficiency, unspecified; E11.9 Type 2 diabetes mellitus without complications; M85.80 Other specified disorders of bone density and structure, unspecified site | CPT/HCPCS: 80053; 80061; 82043; 82306; 82570 ==

== ENCOUNTER 2023-09-22 13:22 | Outpatient (CLI) | payer MEDICARE, BC, SELFPAY ==
--- NOTE | 2023-09-22 13:30 | CRLHL7_ITS ---
For Patients: As a result of the Century Cures Act, medical imaging exams and procedure reports are released immediately into your electronic medical record. You may view this report before your referring provider. If you have questions, please contact your health care provider. DXA BONE MINERAL DENSITY STUDY Reason for exam: Osteopenia. Current height (in): 62. Weight (lb): 153. Menopause age: 40. Ethnicity: White. 1. Have you had a previous hip or vertebral fracture? No. 2. Have you had any fractures during your adult life which did not result from significant trauma (e.g., auto accident)? No. 3. Did either of your parents have a hip fracture? No. 4. Do you smoke? No. 5. Have you ever taken Glucocorticoids? No. 6. Do you have rheumatoid arthritis? No. 7. Do you have secondary osteoporosis? No. 8. Do you drink 3 or more alcoholic drinks per day? No. 9. Are you being treated for osteoporosis? No. 10. Have you ever taken any of the following medications: Actonel, Evista, Fosamax, Miacalcin, Reclast, Boniva, Forteo, HRT (i.e. estrogen/hormone therapy), Protelos, Prolia, Vitamin D, Calcium, other ??? please specify. ANSWER: Yes, vitamin D, calcium. 11. Do you have any of the following medical conditions: Anorexia or bulimia, asthma or emphysema, end stage renal disease, hyperparathyroidism, any seizure disorders, cancer, inflammatory bowel diseases, hysterectomy, other ??? please specify. ANSWER: Yes, cancer. 12. What was your maximum height (inches)? 65. 13. Do you perform weight bearing exercise regularly? Yes. 14. Do you regularly consume dairy products? Yes. 15. Do you drink caffeinated beverages? No. 16. At what age did your period start? 13. 17. Are you premenopausal? No. 18. How many full term pregnancies have you had? 3. 19. Have you ever missed your period for more than 6 months in a row (not including or menopause)? Not provided. TECHNIQUE: Bone mineral density study was performed using the textPlus. FINDINGS: The results of the study expressed as bone mineral density (BMD) are as follows: Lumbar spine L1 to L4: BMD: 0.780 g/cm2. T-score: -2.4. Z-score: 0.4. Neck Left: BMD: 0.679 g/cm2. T-score: -1.5. Z-score: 0.9. Right: BMD: 0.655 g/cm2. T-score: -1.7. Z-score: 0.7. Total Left: BMD: 0.821 g/cm2. T-score: -1.0. Z-score: 1.2. Right: BMD: 0.797 g/cm2. T-score: -1.2. Z-score: 1.0. IMPRESSION: Osteopenia. *Comparison exams done prior to 02/2020 were performed on different unit, M[facility]. COMPARISON: Compared with scan of 04/11/2020, the bone mineral density has decreased by 6.7 percent at the spine and decreased by 10.4 percent at the hip. Compared with scan of 03/12/2016, the bone mineral density has decreased by 1.9 percent at the spine and decreased by 1.9 percent at the hip. FRAX 10-year Fracture Risk Major Osteoporotic Fracture: 14 percent Hip Fracture: 4.0 percent Reported Risk Factors: [place] () Neck BMD=0.655, BMI=28.0 Darío Payton M.D. Diagnostic Radiologist [email or web address] MIRLANDE/Dictated by: Darío Payton MD @ 09/23/2023 8:57:00 AM (Electronically Signed)
== END 2023-09-22 13:23 | disposition home or self-care (01) ==
LOC: RAD 13:24
PROVIDERS: PCP Family Medicine; Visit Provider Family Medicine
DX: M85.80 Other specified disorders of bone density and structure, unspecified site (principal); Z78.0 Asymptomatic menopausal state
CPT/HCPCS: 77080

== ENCOUNTER 2023-11-05 13:26 | Outpatient (CLI) | payer MEDICARE, BC, SELFPAY ==
--- OUTSIDE RECORDS SUMMARY | 2023-11-08 08:19 | XMS_ITS | Clinical Summary ---
Author Name Unknown Organization [facility] Address [place], [place] [address] Care Team Providers Care Poising Inspector Name Role Phone Jackelin Morales Unavailable [phone] Leda Anderson MD Primary Care Provider + Allergies Active Allergy Reactions Criticality Noted Date Comments Aspirin Anaphylaxis 11/17/2006 Age 27, sounds like she got flushed, red rash, difficulty breathing Azithromycin Nausea And Vomiting,Dizziness 02/17/2011 Clindamycin Nausea Only,Dizziness 02/17/2011 Fd And C No.5 (Tartrazine) 11/17/2006 Blue food dye Iodinated Contrast Media Other - Describe In Comment Field 03/12/2009 Unknown. Medications Medication Sig Dispensed Refills Start Date End Date Status Calcium Carbonate 1,000 mg tablet Take 1 tablet by mouth once daily. 0 09/03/2011 Active simvastatin (ZOCOR) 20 mg tablet Take 20 mg by mouth at bedtime. 3 05/05/2018 Active cholecalciferol (VITAMIN D3) 5,000 unit capsule Take 1 capsule by mouth. 0 08/19/2010 Active FLAXSEED OIL ORAL Take by mouth. 0 06/18/2014 Act jayro calcium/magnesium/zinc (GSVHCCG-QIPECRGJKM-CQ NC) 333-133-5 mg tablet Take 1 tablet by mouth. 0 07/25/2014 Active irbesartan (AVAPRO) 150 mg tablet Take 1 Tablet (150 mg) by mouth once daily. if BP is over 140. 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 50mg-850mg take twice daily. 0 05/27/2022 Active clopidogreL (Plavix) 75 mg tablet Take 1 Tablet (75 mg) by mouth once daily. 0 05/27/2022 Active metFORMIN (GLUCOPHAGE) 500 mg tablet Take 500 mg by mouth two times daily with meals. 0 06/17/2022 Active Active Problems Problem Noted Date Diagnosed Date Adenomatous polyp of sigmoid colon 07/23/2020 Overview: Colonoscopy 06/2020 large polyp, repeat in 6 months PVC (premature ventricular contraction) 03/11/20 17 Impaired fasting glucose 11/23/2012 ACP (advance care planning) 10/08/2011 Overview: Patient has identified Health Care Agent(s): Yes Add Health Care Agents: Yes Health Care Agent(s): Primary Health Care Agent: Jaison Del Castillo Relationship: Son Secondary Health Care Agent:Shea Del Castillo Relationship: daughter (c) Conservator: Relationship: Phone: Guardian: Relationship: Phone: Patient has Advance Care Plan Documents (Health Care Directive, POLST): Yes Advance Care Plan Documents: Health Care Directive Patient has identified Specific Treatment Preferences: No Specific limits to treatment preferences NOT identified: ASSUME FULL TREATMENT. Last Assessment & Plan: Advance Care Planning: Basic Interview Session Advance Care Planning discussion completed with Theandrew Del Castillo and her Health Care Agent and son, Jaison Del Castillo on 10/08/2011 at [facility]. Patient and family provided with: Advance Care Planning Discussion Guide, a second copy of a Health Care Directive and booklet, Hard Choices for [place] People, for their review. Goals and Values: Patient/family identified factors that may influence treatment preferences: ?? Personal values and goals: Very strong adventist beliefs and need to allow God's will,God gives me strength and I am very blessed. ?? Quality of life: Has had two separate bouts of serious illness: one with breast cancer in 2006 and lymphoma in 2009, received treatments, recovered quickly and returned to previous level of function. Did state would not want to have prolonged medical interventions if not able to recover. ?? Worries and fears about health care; Does not believe in documenting specific wishes, can't preplan God's plan. She states she does discuss her wishes with her family as needs arises. 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 Was unable to define a timeline for a limited trial, needs to discuss with her family [...] agents. Recommendations/Plan: Theandrew was encouraged to continue advance care planning discussions, complete a health care directive and schedule a return appointment with worm raiser to review her advance care plan. Theandrew and her health care agent to review Health Care Directive with her provider at the next office visit. Interviewer: Adri Sepulveda, RN 10/08/2011 Vitamin D deficiency 03/15/2009 Exostosis of unspecified site 02/01/2007 Personal history of malignant neoplasm of breast 11/17/2006 Overview: right breast cancer ductal in situ . Pt had lumpectomy Osteoporosis, unspecified 11/17/2006 Premature menopause 11/17/2006 Calculus of kidney 11/17/2006 Overview: 1994 Follicular lymphoma Overview: skin biopsy Immunizations Name Administration Dates Next Due AMB Influenza, IIV3 (Age >=3 years)(Flu Clinic Only) 06/15/2013,07/06/2012,07/17/2008 Influenza RIV4 (Age 18+ Year s) PRESERV FREE 08/02/2019 Influenza, High-dose Inactivated 018,06/25/2017,07/07/2016,2014 Influenza, High-dose Quadriv alent Inactivated 07/29/2021 Influenza, IIV3 (Age >=3 years) 06/05/20 11,07/09/2010,06/14/2009,2006,08/11/2006 Influenza, ccIIV3 (Age >=18 Years) 07/05/2014 Pneumococcal Poly,23-Valent (Pneumovax) 01/25/2007 Pneumococcal conj 13-Valent (Prevnar 13) 03/09/2016 Tdap 03/09/2016,03/04/2006 Family History Medical History Relation Name Comments Heart Disease Brother 5 Hypertension Brother 6 Stroke Brother 7 Cancer Father lymphoma? Cancer-breast Maternal Aunt Hypertension Mother Relation Name Status Comments Brother 1 [place] Brother 2 stroke Brother 3 Alive Brother 4 Alive Brother 5 Brother 6 Brother 7 Father Maternal Aunt Mother Sister 1 [place] Sister 2 Alive Sister 3 Alive Sister 4 Alive Social History Tobacco Use Types Packs/Day Years Used Date Smoking Tobacco: Never Smokeless Tobacco: Never Tobacco Cessation:Counseling Given: Yes Alcohol Use Standard Drinks/Week Comments Not Currently 0 (1 standard drink = 0.6 oz pur e alcohol) Social Connections Answer Date Recorded Frequency of Communication with Friends and Fami ly Not on file 09/27/2021 Financial Resource Strain Answer Date R ecorded Difficulty of Paying Living Expenses Not on file 09/27/2021 Difficulty of Paying Living Expenses Not on file 09/27/2021 Sex and Gender Information Value Date Recorded Sex Assigned at Not on file Gender Identity Not on file Sexual Orientation Not on file Obstetrics History Last Filed Vital Signs Vital Sign Reading Time Taken Comments Blood Pressure 122/70 07/03/2022 9:07 AM CDT Pulse 38 07/03/2022 9:07 AM CDT Temperature 36.9 ??C (98.4 ??F) 07/18/2018 3:30 PM CD T Respiratory Rate 16 06/21/2020 11:53 AM CDT Oxygen Saturation 98% 07/03/2022 9:07 AM CDT Inhaled Oxygen Concentration - - Weight 62.4 kg (137 lb 8 oz) 07/03/2022 9:07 AM CDT Height 152 cm (4' 11.84) 07/03/2022 9:07 AM CDT Body Mass Index 26.99 07/03/2022 9:07 AM CDT Plan of Treatment Health Maintenance Due Date Last Done Comments COVID-19 vaccine series (#1) 1945 Depression screening for age 12+ 1952 Zoster (shingles) series for age 50+ (1 of 2) 11/27/1959 Medicare Wellness for age 65+ 06/27/2014, 03/01/2012, 02/17/2011 Influenza for age 65+ 05/28/2023 07/29/2021 , 08/02/2019, 06/22/2018, Additional history exists BMI (ht and wt on same day) for age 18+ 07/03/2023 07/03/2022, 05/27/2022, 02/15/2019, Additional history exists Tetanus booster 03/09/2026 03/09/2016, 03/04/2006 DEXA/DXA scan for age 65+ Completed 2012, 03/01/2012, 02/27/2011, Additional history exists Pneumococcal series for age 65+ Completed 6, 01/25/2007 Tdap Completed 03/09/2016, 03/04/2006 Advance Directives Documents on File Type Date Recorded 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
== END 2023-11-05 13:27 | disposition home or self-care (01) ==
LOC: NFLDREF 11-08 08:17
PROVIDERS: PCP Family Medicine; Referring Provider Family Medicine; Visit Provider Family Medicine
DX: M81.0 Age-related osteoporosis without current pathological fracture (principal)
CPT/HCPCS: 82306

== ENCOUNTER 2024-01-03 13:02 | Outpatient (CLI) | payer MEDICARE, BC, SELFPAY ==
--- OUTSIDE RECORDS SUMMARY | 2024-01-03 13:04 | XMS_ITS | Clinical Summary ---
Author Name Unknown Organization [facility] Address [place], [place] [address] Care Team Providers Care Delivery Consultant Name Role Phone Jackelin Morales Unavailable [phone] Leda Anderson MD Primary Care Provider + [...] Take 1 tablet by mouth once daily. 09/03/2011 Active simvastatin (ZOCOR) 20 mg tablet Take 20 mg by mouth at bedtime. 3 05/05/2018 Active cholecalciferol (VITAMIN D3) 5,000 unit capsule Take 1 capsule by mouth. 08/19/2010 Active FLAXSEED OIL ORAL Take by mouth. 06/18/2014 Act jayro calcium/magnesium/zinc (DSPLGTZ-FNADSRLQKX-HR NC) 333-133-5 mg tablet Take 1 tablet by mouth. 07/25/2014 Active irbesartan (AVAPRO) 150 mg tablet Take 1 Tablet (150 mg) by mouth once daily. if BP is over 140. 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 50mg-850mg take twice daily. 0 05/27/2022 Active clopidogreL (Plavix) 75 mg tablet Take 1 Tablet (75 mg) by mouth once daily. 0 05/27/2022 Active metFORMIN (GLUCOPHAGE) 500 mg tablet Take 500 mg by mouth two times daily with meals. 06/17/2022 Active Active Problems Problem Noted Date [...] Session Advance Care Planning discussion completed with Theologia Topher Del Castillo and her Health Care Agent and son, Jaison Del Castillo on 10/08/2011 at [facility]. Patient and family provided with: Advance Care Planning Discussion Guide, a second copy of a Health Care Directive and booklet, Hard Choices for [place] People, for their review. Goals and Values: Patient/family identified factors that may influence treatment preferences: ?? 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 Was unable to define a timeline for [...] directive and schedule a return appointment with biomedical engineering professor to review her advance care plan. Theandrew and her health care agent to review Health Care Directive with her provider at the next office visit. Interviewer: Adri Sepulveda RN 10/08/2011 Vitamin D deficiency 03/15/2009 Exostosis of unspecified site 02/01/2007 Personal history of malignant neoplasm of breast 11/17/2006 Overview: right breast cancer ductal in situ . Pt had lumpectomy Osteoporosis, unspecified 11/17/2006 Premature menopause 11/17/2006 Calculus of kidney 11/17/2006 Overview: 1994 Follicular lymphoma Overview: skin biopsy Encounters Date Type Department Care Team Description 12/30/2023 10:00 AM CDT Office Visit [facility] [address] [place] [address] Otilio Woodard MD CV General Cardiology Est from Last 3 Months Immunizations Name Administration [...] Mother Relation Name Status Comments Brother 1 AR Brother 2 stroke Brother 3 Alive Brother 4 Alive Brother 5 Brother 6 Brother 7 Father Maternal Aunt Mother Sister 1 AR Sister 2 Alive Sister 3 Alive Sister [...] Wellness for age 65+ 06/27/2014, 03/01/2012, 02/17/2011 BMI (ht and wt on same day) for age 18+ 07/03/2023 07/03/2022, 05/27/2022, 02/15/2019, Additional history exists Influenza for age 65+ 05/28/2024 07/29/2021 , 08/02/2019, 06/22/2018, Additional history exists Tetanus booster 03/09/2026 03/09/2016, 03/04/2006 DEXA/DXA scan for age 65+ Completed 2012, 03/01/2012, 02/27/2011, Additional history exists Pneumococcal series for age 65+ Completed , 01/25/2007 Tdap Completed 03/09/2016, 03/04/2006 Procedures Procedure Name Priority Date/Time Associated Diagnosis Comments XR DXA BONE DENSITY 2 SITES AXIAL Routine 06/29/2013 1:43 PM CDT Osteopenia from Last 3 Months or Most Recently Relevant to Health Maintenance Results * (ABNORMAL) XR DXA BONE DENSITY 2 SITES (06/29/2013 1:43 PM CDT) Anatomical Region Laterality Modality Spine, HIPS, HIPL, HIPR Other Narrative 06/30/2013 1:05 PM CDT Please see scanned document for results of this study. Procedure Note Chayo Zheng - 06/30/2013 Please see scanned document for results of this study. 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
== END 2024-01-03 13:03 | disposition home or self-care (01) ==
LOC: RAD 13:02
PROVIDERS: PCP Family Medicine; Visit Provider Internal Medicine
DX: I77.810 Thoracic aortic ectasia (principal); I51.7 Cardiomegaly; I34.0 Nonrheumatic mitral (valve) insufficiency; I07.1 Rheumatic tricuspid insufficiency
CPT/HCPCS: 93306

== ENCOUNTER 2024-02-01 09:34 | Outpatient (CLI) | payer MEDICARE, BC, SELFPAY ==
--- OUTSIDE RECORDS SUMMARY | 2024-02-02 08:56 | XMS_ITS | Clinical Summary ---
Author Name Unknown Organization [facility] Address [place], [place] [address] Care Team Providers Care Ore Roaster Name Role Phone Jackelin Morales Unavailable [phone] Leda Anderson MD Primary Care Provider + [...] Take by mouth. 06/18/2014 Act jayro calcium/magnesium/zinc (OSPPRJB-[id number]-DT NC) 333-133-5 mg tablet Take 1 tablet by mouth. 07/25/2014 Active irbesartan (AVAPRO) 150 mg tablet Take 1 Tablet (150 mg) by mouth once daily. if BP is over 140. 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 50mg-850mg take twice daily. 0 05/27/2022 Active [...] Care Agent(s): Primary Health Care Agent: Jaison Najera Relationship: Son Secondary Health Care Agent:Shea Najera Relationship: daughter (c) Conservator: Relationship: Phone: Guardian: Relationship: Phone: Patient has Advance Care Plan Documents (Health Care Directive, POLST): Yes Advance Care Plan Documents: Health Care Directive Patient has identified Specific Treatment Preferences: No Specific limits to treatment preferences NOT identified: ASSUME FULL TREATMENT. Last Assessment & Plan: Advance Care Planning: Basic Interview Session Advance Care Planning discussion completed with Theologia Topher Najera and her Health Care Agent and son, Jaison Najera on 10/08/2011 at [facility]. Patient and family provided with: Advance Care Planning Discussion Guide, a second copy of a Health Care Directive and booklet, Hard Choices for [place] People, for their review. Goals and Values: Patient/family identified factors that may influence treatment preferences: ?? 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 Was unable to define a timeline for [...] directive and schedule a return appointment with furniture removalist's assistant to review her advance care plan. Theandrew [...] Encounters Date Type Department Care Team Description 01/03/2024 1:00 PM CDT Ancillary Procedure [facility] [address] [place] [address] 12/30/2023 10:00 AM CDT Office Visit [facility] [address] [place] [address] Yoana Velazquez MD CV General Cardiology Est from Last [...] Mother Relation Name Status Comments Brother 1 [place] Brother 2 stroke Brother 3 Alive Brother 4 Alive Brother 5 Brother 6 Brother 7 Father Maternal Aunt Mother Sister 1 VA Sister 2 Alive Sister 3 Alive Sister [...] Completed 6, 01/25/2007 Tdap Completed 03/09/2016, 03/04/2006 Procedures Procedure Name Priority Date/Time Associated Diagnosis Comments ECHO TTE COMPLETE WO CONTRAST Routine 01/03/2024 1:54 PM CDT Aortic ectasia (HC) XR DXA BONE DENSITY 2 SITES AXIAL Routine 06/29/2013 1:43 PM CDT Osteopenia from Last 3 Months or Most Recently Relevant to Health Maintenance Results * ECHO TTE COMPLETE WO CONTRAST (01/03/2024 1:54 PM CDT) AORTIC VALVE MEAN PG 7 mmHg EJECTION FRACTION 65 % PEAK TR VELOCITY 2.7 m/s LVEDD 4.2 cm EJECTION FRACTION 60 - 65% Anatomical Region Laterality Modality Ultrasound 01/03/2024 1:17 PM CDT Narrative 01/03/2024 2:26 PM CDT ECHOCARDIOGRAM THEOLOGIA Topher NAJERA ?Accession#: ?? [id number] : ?1940 83 years Study Date: ?? 01/03/2024 1:17:52 PM Gender: F ? BP: ? 139/88 mmHg Height: 163.00 cm ? BSA: ?1.73 m? ? ? Weight: 68.00 kg ?Tech: ? [facility] ?Referring MD: YOANA VELAZQUEZ Site: ? [facility] Reading Location: Mobile-OP Patient Location: Procedure: 2D, Color Doppler and Spectral Doppler. Indication for study: Aortic Ectasia Cardiac Rhythm: Regular.Study quality: Good. Final Impressions: 1. Normal LV size, normal wall thickness, normal global systolic function with an estimated EF of 60 - 65%. 2. Mildly enlarged left atrium. 3. The mitral valve is normal, mild mitral regurgitation. 4. Moderate tricuspid regurgitation. 5. The ascending aorta is normal sized with a maximal diameter of 3.6 cm. Chamber Sizes and Function Normal left ventricular size, normal wall thickness, normal global systolic function with an estimated EF of 60 - 65%. Left atrial size is mildly enlarged. Right ventricular cavity size is normal, global systolic RV function is normal. RV wall thickness is normal. The right atrium is normal. Right atrial volume index is 38 ml/m? ? ?. Right atrial area is 21 cm? ? ?. The pulmonary artery is of normal size and origin. The sinus of Valsalva is normal sized. The ascending aorta is normal sized. Valves, RV Pressures and Diastolic Function The aortic valve is trileaflet, no stenosis and trivial regurgitation. The mitral valve is normal in structure, mild mitral regurgitation. Indeterminate pattern of LV diastolic filling. The tricuspid valve is normal in structure. Tricuspid regurgitation is moderate. The tricuspid regurgitant velocity is 2.7 m/s, the estimated right ventricular systolic pressure is 29 mmHg plus right atrial pressure. There is borderline increased estimated pulmonary pressure by tricuspid regurgitation velocity and right atrial pressure. The pulmonic valve is normal. No pulmonary regurgitation. Masses, Effusion, Shunts There is no pericardial effusion. The inferior vena cava is normal sized, respiratory size variation greater than 50%. No left to right shunting was detected by limited color flow Doppler interrogation of the interatrial septum. MEASUREMENTS AND CALCULATIONS 2-D Measurements and LV Function: LVID (d) 4.2 cm LV FS% (2D) ?? 32 % LVID (s) 2.9 cm LVOT diameter 1.9 cm IVS (d) ??0.9 cm HR ?46 bpm LVPW (d) 1.0 cm LA Vol index ??44 ml/m2 Ao Sinus 3.1 cm RA Vol index ??38 ml/m2 Asc Ao ?? 3.6 cm RA area ? 21 cm? ? ? LA ? 3.6 cm RV Max 4C (d) 3.8 cm Diastology: Mitral ?Tissue Doppler E Peak 0.8 m/s ??e', Septum ? 0.08 m/s DT ? 240 msec e', Lateral ?0.09 m/s ?E/e' Average ?? 9.85 Aortic Valve: Vmax ? 1.7 m/s ??EMMANUEL (V) ?? 2.49 cm? ? ? VTI ?0.36 m ?? EMMANUEL (I) ?? 2.52 cm? ? ? LVOT V max ? 1.5 m/s ??Max PG ?11 mmHg LVOT VTI ? 0.32 m ?? Mean PG ?? 7 mmHg SV ? 89 ml ?Dim Index 0.91 SV index ? 52 ml/m? ? ? CO ?4.1 l/min AV Ejection Time 0.29 sec CI ?2.4 l/min/m? ? ? AV Flow Rate ? 309 ml/s Mitral Valve: MVA ? 3.2 cm? ? ? MV P 1/2 ??70 msec MV Mean G 2 mmHg MV VTI ?0.28 m Tricuspid Valve and estimated PA pressures: TR Vmax 2.7 m/s TAPSE 2.1 cm TR maxG 29 mmHg Pulmonic Valve: PV AT 99 msec PIEDV 0.8 m/s . This study was interpreted by an [facility] accredited facility. CC: [facility] ([facility]. ??Final ?? Procedure Note Ryan Alves MD - 01/03/2024 ECHOCARDIOGRAM THEANDREW NAJERA : 1940 83 years Study Date: 01/03/2024 1:17:52 PM Gender: F BP: 139/88 mmHg Height: 163.00 cm BSA: 1.73 m? ? ? Weight: 68.00 kg Tech: [facility] Referring MD: YOANA VELAZQUEZ Site: [facility] Reading Location: Mobile-OP Patient Location: Procedure: 2D, Color Doppler and Spectral Doppler. Indication for study: Aortic Ectasia Cardiac Rhythm: Regular.Study quality: Good. Final Impressions: 1. Normal LV size, normal wall thickness, normal global systolic functionwith an estimated EF of 60 - 65%. 2. Mildly enlarged left atrium. 3. The mitral valve is normal, mild mitral regurgitation. 4. Moderate tricuspid regurgitation. 5. The ascending aorta is normal sized with a maximal diameter of 3.6cm. Chamber Sizes and Function Normal left ventricular size, normal wall thickness, normal globalsystolic function with an estimated EF of 60 - 65%. Left atrial size ismildly enlarged. Right ventricular cavity size is normal, global systolicRV function is normal. RV wall thickness is normal. The right atrium isnormal. Right atrial volume index is 38 ml/m? ? ?. Right atrial area is 21cm? ? ?. The pulmonary artery is of normal size and origin. The sinus ofValsalva is normal sized. The ascending aorta is normal sized. Valves, RV Pressures and Diastolic Function The aortic valve is trileaflet, no stenosis and trivial regurgitation. Themitral valve is normal in structure, mild mitral regurgitation.Indeterminate pattern of LV diastolic filling. The tricuspid valve isnormal in structure. Tricuspid regurgitation is moderate. The tricuspidregurgitant velocity is 2.7 m/s, the estimated right ventricular systolicpressure is 29 mmHg plus right atrial pressure. There is borderlineincreased estimated pulmonary pressure by tricuspid regurgitation velocityand right atrial pressure. The pulmonic valve is normal. No pulmonaryregurgitation. Masses, Effusion, Shunts There is no pericardial effusion. The inferior vena cava is normal sized,respiratory size variation greater than 50%. No left to right shunting wasdetected by limited color flow Doppler interrogation of the interatrialseptum. MEASUREMENTS AND CALCULATIONS 2-D Measurements and LV Function: LVID (d) 4.2 cm LV FS% (2D) 32 % LVID (s) 2.9 cm LVOT diameter 1.9 cm IVS (d) 0.9 cm HR 46 bpm LVPW (d) 1.0 cm LA Vol index 44 ml/m2 Ao Sinus 3.1 cm RA Vol index 38 ml/m2 Asc Ao 3.6 cm RA area 21 cm? ? ? LA 3.6 cm RV Max 4C (d) 3.8 cm Diastology: Mitral Tissue Doppler E Peak 0.8 m/s e', Septum 0.08 m/s DT 240 msec e', Lateral 0.09 m/s E/e' Average 9.85 Aortic Valve: Vmax 1.7 m/s EMMANUEL (V) 2.49 cm? ? ? VTI 0.36 m EMMANUEL (I) 2.52 cm? ? ? LVOT V max 1.5 m/s Max PG 11 mmHg LVOT VTI 0.32 m Mean PG 7 mmHg SV 89 ml Dim Index 0.91 SV index 52 ml/m? ? ? CO 4.1 l/min AV Ejection Time 0.29 sec CI 2.4 l/min/m? ? ? AV Flow Rate 309 ml/s Mitral Valve: MVA 3.2 cm? ? ? MV P 1/2 70 msec MV Mean G 2 mmHg MV VTI 0.28 m Tricuspid Valve and estimated PA pressures: TR Vmax 2.7 m/s TAPSE 2.1 cm TR maxG 29 mmHg Pulmonic Valve: PV AT 99 msec PIEDV 0.8 m/s . This study was interpreted by an [facility] accredited facility. CC: [facility] ([facility]) [facility]. Final Yoana Velazquez MD ECHO ORD * (ABNORMAL) XR DXA BONE DENSITY 2 SITES (06/29/2013 1:43 PM CDT) Anatomical Region Laterality Modality Spine, HIPS, HIPL, HIPR Other Narrative 06/30/2013 1:05 PM CDT Please see scanned document for results of this study. Procedure Note Chayo Zhneg E - 06/30/2013 Please see scanned document for results of this study. Susan Ardon MD DEXA from Last 3 Months or Most Recently Relevant to Health Maintenance Advance Directives Documents on File Type Date Recorded Patient Reuse Technician Expl anation Healthcare Directive 12/03/2011 ACP Care Teams Ore Roaster Relationship Specialty Start Date End Date Leda Anderson MD [address] [place] [address] PCP - General Family Practice 06/13/20 Jackelin Morales [address] [place] [address] Internal Medicine 03/01/12
== END 2024-02-01 09:35 | disposition home or self-care (01) ==
LOC: NFLDREF 02-02 08:54
PROVIDERS: PCP Family Medicine; Referring Provider Family Medicine; Visit Provider Family Medicine
DX: R80.9 Proteinuria, unspecified (principal); E11.9 Type 2 diabetes mellitus without complications; E55.9 Vitamin D deficiency, unspecified; I10 Essential (primary) hypertension
CPT/HCPCS: 80053; 82043; 82306; 82570

== ENCOUNTER 2024-02-25 10:44 | Outpatient (CLI) | payer MEDICARE, BC, SELFPAY ==
--- NOTE | 2024-02-25 10:45 | CRLHL7_ITS ---
For Patients: As a result of the Century Cures Act, medical imaging exams and procedure reports are released immediately into your electronic medical record. You may view this report before your referring provider. If you have questions, please contact your health care provider. BILATERAL SCREENING MAMMOGRAM WITH COMPUTER-AIDED DETECTION AND TOMOSYNTHESIS TECHNIQUE: CC and MLO views were obtained. These mammographic images have been obtained using full-field digital technique. These mammographic images were interpreted with the benefit of computer-aided detection. Breast Tomosynthesis was used in this interpretation. COMPARISON FILM: 01/26/23, 02/18/22, 02/09/22. FINDINGS: There are scattered areas of fibroglandular density. IMPRESSION: There is no radiographic evidence for malignancy. ASSESSMENT: BI-RADS Category 1: Negative RECOMMENDATION: Routine screening mammogram in 1 year. A lay language report of this examination will be provided to the patient. Darío Payton M.D. Diagnostic Radiologist [email or web address] SP/Dictated by: Darío Payton MD @ 02/28/2024 11:37:00 AM (Electronically Signed)
--- OUTSIDE RECORDS SUMMARY | 2024-02-25 10:47 | XMS_ITS | Clinical Summary ---
Author Organization [facility] [facility] Address [place], [place] [address] Care Team Providers Care Felling Machine Operator Name Role Phone Jackelin Morales Unavailable [phone] Leda Anderson MD Primary Care Provider + [...] Take by mouth. 06/18/2014 Act jayro calcium/magnesium/zinc (FWJHMNC-URCKFHYTVL-KZ NC) 333-133-5 mg tablet Take 1 tablet by mouth. 07/25/2014 Active irbesartan (AVAPRO) 150 mg tablet Take 1 Tablet (150 mg) by mouth once daily. if BP is over 140. 0 05/27/2022 Active medication order composer Meléndez from [place]. 50mg-850mg take twice daily. 0 05/27/2022 Active [...] and son, Jaison Najera on 10/08/2011 at [facility]. Patient and family provided with: Advance Care Planning Discussion Guide, a second copy of a Health Care Directive and booklet, Hard Choices for [place] People, for their review. Goals and Values: Patient/family identified factors that may influence treatment preferences: ?? Personal values and goals: Very strong mandaen beliefs and need to allow God's will,God [...] such as a ventilator/respirator, feeding tube, etc., SENIOR CARE. Was unable to define a timeline for [...] directive and schedule a return appointment with offset press assistant to review her advance care plan. [...] Description 01/03/2024 1:00 PM CDT Ancillary Procedure [facility] [address] [place] [address] 12/30/2023 10:00 AM CDT Office Visit [facility] [address] [place] [address] Otilio Velazquez MD CV General Cardiology Est from [...] Mother Relation Name Status Comments Brother 1 ID Brother 2 stroke Brother 3 Alive Brother 4 Alive Brother 5 Brother 6 Brother 7 Father Maternal Aunt Mother Sister 1 ID Sister 2 Alive Sister 3 Alive Sister [...] Narrative 01/03/2024 2:26 PM CDT ECHOCARDIOGRAM THEOLOGIA B DANIA ?Accession#: ?? [id number] : ?1940 83 years Study Date: ?? 01/03/2024 1:17:52 PM Gender: F ? BP: ? 139/88 mmHg Height: 163.00 cm ? BSA: ?1.73 m? ? ? Weight: 68.00 kg ?Tech: ? [facility] ?Referring MD: OTILIO VELAZQUEZ Site: ? [facility] Reading Location: Mobile-OP Patient Location: [...] . This study was interpreted by an [facility] accredited facility. CC: HIM (med [facility]) [facility]. ??Final ?? Procedure Note Ryan Alves MD - 01/03/2024 ECHOCARDIOGRAM THEANDREW NAJERA : 1940 83 years Study Date: 01/03/2024 1:17:52 PM Gender: F BP: 139/88 mmHg Height: 163.00 cm BSA: 1.73 m? ? ? Weight: 68.00 kg Tech: [facility] Referring MD: OTILIO VELAZQUEZ Site: [facility] Reading Location: Mobile-OP Patient Location: [...] interpreted by an [facility] accredited facility. CC: HIM (med records) [facility]. Final Otilio Velazquez MD ECHO ORD * (ABNORMAL) XR [...] Documents on File Type Date Recorded Patient Library Assistant Expl anation Healthcare Directive 12/03/2011 ACP Care Teams Felling Machine Operator Relationship Specialty Start Date End Date Leda Anderson MD [address] [place] [address] PCP - General Family Practice 06/13/20 Jackelin Morales [address] [place] [phone] Internal Medicine 03/01/12
== END 2024-02-25 10:45 | disposition home or self-care (01) ==
PROVIDERS: PCP Family Medicine; Visit Provider Family Medicine
DX: Z12.31 Encounter for screening mammogram for malignant neoplasm of breast (principal)
CPT/HCPCS: 77063; 77067

== ENCOUNTER 2024-04-17 14:44 | Outpatient (REF) | payer MEDICARE, BC, SELFPAY ==
--- OUTSIDE RECORDS SUMMARY | 2024-04-17 14:49 | XMS_ITS | Clinical Summary ---
Author Organization [employer] [facility] Address [place], [place] [address] Care Team Providers Care Maintenance Truck Driver Name Role Phone Jackelin Morales Unavailable [phone] Leda Anderson MD Primary Care Provider + [...] ORAL Take by mouth. 06/18/2014 Act jayro calcium/magnesium/zi nc (CALCIUM-MAGNESUIUM- ZINC) 333-133-5 mg tablet Take 1 tablet by [...] two times daily with meals. 06/17/2022 Active predniSONE (DELTASONE) 20 mg tabletIndications:Co ntrast media allergy Take 60 mg (3 tablets) the evening before the procedure, and take 60 mg (3 tablets) the morning of the procedure 6 Tablet 04/14/2024 Active Active Problems Problem Noted Date Diagnosed [...] son, Jaison Del Castillo on 10/08/2011 at [facility]. Patient and family provided with: Advance Care Planning Discussion Guide, a second copy of a Health Care Directive and booklet, Hard Choices for [place] People, for their review. Goals and Values: Patient/family identified factors that may influence treatment preferences: ?? Personal values and goals: Very strong voodoo beliefs and need to allow God's will,God [...] such as a ventilator/respirator, feeding tube, etc., NURSING HOME. Was unable to define a timeline for [...] directive and schedule a return appointment with program director/morning show host to review her advance care plan. Theologia and her health care agent to review [...] Encounters Date Type Department Care Team Description 04/17/2024 Telephone [facility] [address] [place] [address] [place] [address] Ifrah Adhikari RN pre/post phone call 04/14/2024 Telephone [facility] [address] [facility] [address] [place] [phone] Otilio Woodard MD Lab 04/13/2024 Telephone [facility] [address] [phone] Caryn Sanchez RN EP Procedure 04/13/2024 Telephone [facility] [address] [phone] Otilio Woodard MD Results (Zio monitor) 04/11/2024 Telephone [facility] [address] [phone] Otilio Woodard MD Results 03/23/2024 Orders Only [facility] [address] [place] [address] Adri Dukes MD 2 scans: (2-Ord) ZIO FINAL REPORT from Last 3 Months Immunizations Name Administration [...] Mother Relation Name Status Comments Brother 1 [place] Brother 2 stroke Brother 3 Alive Brother 4 Alive Brother 5 Brother 6 Brother 7 Father Maternal Aunt Mother Sister 1 [place] Sister 2 Alive Sister 3 Alive Sister [...] 07/03/2022 9:07 AM CDT Plan of Treatment Upcoming Encounters Date Type Department Care Team (Late st Contact Info) Description 04/18/2024 9:30 AM CDT Appointment [facility] [address] [facility] [address] [place], [place] [phone] Ronald Nichols MD [address] [facility] [address] [place] [address] 04/20/2024 1:00 PM CDT Office Visit [facility] [address] [place] [address] Otilio Woodard MD [address] [facility] [address] [place] [address] Health Maintenance Due Date Last Done Comments [...] Procedure Name Priority Date/Time Associated Diagnosis Comments EXTENDED HOLTER Routine 04/13/2024 Abnormal computerized tomography of brain XR DXA BONE DENSITY 2 SITES AXIAL Routine 06/29/2013 1:43 PM CDT Osteopenia from Last 3 Months or Most Recently Relevant to Health Maintenance Results * (ABNORMAL) EXTENDED HOLTER (04/13/2024) Adri Dukes MD CARDIAC SERVICES ORD * (ABNORMAL) XR DXA BONE DENSITY 2 SITES (06/29/2013 1:43 PM CDT) Anatomical Region Laterality Modality Spine, HIPS, HIPL, HIPR Other Narrative 06/30/2013 1:05 PM CDT Please see scanned document for results of this study. Procedure Note Chayo Zheng E - 06/30/2013 Please see scanned document for results of this study. Susan TYLER from Last 3 Months or Most Recently Relevant to Health Maintenance Advance Directives Documents on File Type Date Recorded Patient Enterprise Application Analyst Expl anation Healthcare Directive 12/03/2011 ACP Care Teams Maintenance Truck Driver Relationship Specialty Start Date End Date Leda Anderson MD [address] [place] [address] PCP - General Family Practice 06/13/20 Jackelin Morales [address] [place] [phone] Internal Medicine 03/01/12
[2024-04-17 15:41] LABS: Basophils Absolute Auto 0.03 K/uL (0.00-0.30); Basophils Percent Auto 0.5 % (0.0-3.0); Eosinophils Absolute Auto 0.07 K/uL (0.00-0.50); Eosinophils Percent Auto 1.1 % (0.0-7.0); Hematocrit 46.6 % (33.0-51.0); Hemoglobin* 15.2 gm/dL (12.0-16.0); Immature Granulocytes Abs Auto 0.01 K/uL (0.00-0.30); Immature Granulocytes Pct Auto 0.2 %; Lymphocytes Absolute Auto 2.13 K/uL (0.90-2.90); Lymphocytes Percent Auto 33.8 % (20-44); Mean Corpuscular HGB Conc 33 gm/dL (32-36); Mean Corpuscular Hemoglobin 31 pg (26-34); Mean Corpuscular Volume 96 fL (80-100); Neutrophils Absolute Auto 3.62 K/uL (1.7-7.0); Neutrophils Percent Auto 57.4 % (42.0-72.0); Platelet Count* 195 K/uL (140-440); RDW Coefficient of Variation % 12.7 % (11.5-15.5); Red Blood Count 4.86 m/uL (4.00-5.20)
[2024-04-17 15:54] LABS: Slide Review Reflex No
[2024-04-17 16:13] LABS: Chloride* 102 mmol/L (96-114); Potassium* 3.9 mmol/L (3.6-5.1)
[2024-04-17 16:16] LABS: Carbon Dioxide* 27 mmol/L (20-32); Creatinine* 0.8 mg/dL (0.5-1.5); Estimated Glomerular Filt Rate 73 ml/min
[2024-04-17 16:17] LABS: Blood Urea Nitrogen* 19 mg/dL (7-30); Glucose* 180 mg/dL (60-115)
[2024-04-17 16:30] LABS: Anion Gap 9 mEq/L (7-15); Sodium* 138 mmol/L (135-149)
== END 2024-04-17 14:45 | disposition home or self-care (01) ==
LOC: NPINS 14:44
PROVIDERS: PCP Family Medicine; Visit Provider Student in an Organized Health Care Education/Training Program
DX: Z01.818 Encounter for other preprocedural examination (principal)
CPT/HCPCS: 80048; 85025

== ENCOUNTER 2024-04-21 14:04 | Emergency (ER) | payer MEDICARE, BC, SELFPAY ==
[2024-04-21] VITALS (38 sets, daily range): BP systolic 119–151; BP diastolic 70–113; PULSE 63–94; RESP 16–18; TEMP 37; O2SAT 93–99; BMI 25.9
--- OUTSIDE RECORDS SUMMARY | 2024-04-21 15:34 | XMS_ITS | Clinical Summary ---
Author Organization [employer] [facility] Address [place], [place] [address] Care Team Providers Care Signal Supervisor Name Role Phone Jackelin Morales Unavailable [phone] Leda Mcgrath MD Primary Care Provider + Allergies Active [...] FLAXSEED OIL ORAL Take by mouth. 06/18/2014 Active calcium/magnesiu m/zinc (CALCIUM-MAGNESU IUM-ZINC) 333-133-5 mg tablet Take 1 tablet by mouth. 07/25/2014 Active irbesartan (AVAPRO) 150 mg tablet Take 1 Tablet (150 mg) by mouth once daily. if BP is over 140. 0 05/27/2022 Active medication order composer Meléndez from [place]. 50mg-850mg take twice daily. 0 05/27/2022 Active metFORMIN (GLUCOPHAGE) 500 mg tablet Take 500 mg by mouth two times daily with meals. 06/17/2022 Active predniSONE (DELTASONE) 20 mg tabletIndication s:Contrast media allergy Take 60 mg (3 tablets) the evening before the procedure, and take 60 mg (3 tablets) the morning of the procedure 6 Tablet 04/14/2024 Active acetaminophen (TYLENOL) 325 mg tabletIndication s:Pain,S/P placement of cardiac pacemaker Take 2 Tablets (650 mg) by mouth every 4 hours if needed for Pain (For mild pain.). Max acetaminophen dose: 4000mg in 24 hrs. 04/18/2024 Active clopidogreL (Plavix) 75 mg tablet Take 1 Tablet (75 mg) by mouth once daily. 0 05/27/2022 Discontinue d(*Patient states no longer taking) Active Problems Problem Noted Date Diagnosed Date [...] [facility]. Patient and family provided with: Advance Care Planning Discussion Guide, a second copy of a Health Care Directive and booklet, Hard Choices for [place] People, for their review. Goals and Values: Patient/family identified factors that may influence treatment preferences: ?? 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 Was unable to define a timeline for [...] directive and schedule a return appointment with group sales representative to review her advance care plan. [employer] and her health care agent to review Health Care Directive with her provider at the next office visit. Interviewer: Adri Sepulveda, JONNIE 10/08/2011 Vitamin D deficiency 03/15/2009 Exostosis of unspecified site 02/01/2007 Personal history of malignant neoplasm of breast 11/17/2006 Overview: right breast cancer ductal in situ . Pt had lumpectomy Osteoporosis, unspecified 11/17/2006 Premature menopause 11/17/2006 Calculus of kidney 11/17/2006 Overview: 1994 Follicular lymphoma Overview: skin biopsy Encounters Date Type Department Care Team Description 04/21/2024 Telephone [facility] [address] [place] [address] Izzy Vargas RN Device Check 04/20/2024 1:00 PM CDT Office Visit [facility] [address] [place] [address] Otilio Woodard MD CV General Cardiology Est 04/18/2024 11:20 AM CDT Ancillary Procedure [facility] [address] [place] [address] Arrived 04/18/2024 8:23 AM CDT - 04/18/2024 11:59 PM CDT Hospital Encounter [facility] [address] [place] [address] Abel Nichols MD Pain (Primary Dx); S/P placement of cardiac pacemaker 04/18/2024 8:20 AM CDT Anesthesia Event [facility] [address] [place] [address] Darío Méndez MD 04/18/2024 Travel 04/17/2024 Telephone [facility] [address] [place] [address] Abel Nichols MD Results 04/17/2024 Telephone [facility] [place] [address] [place] [address] Ifrah Adhikari RN pre/post phone call 04/14/2024 Telephone [facility] [address] [place] [address] Otilio Woodard MD Lab 04/13/2024 Telephone [facility] [address] [place] [address] Caryn Sanchez RN EP Procedure 04/13/2024 Telephone [facility] [address] [facility] [address] [place] [address] Otilio Woodard MD Results (Zio monitor) 04/11/2024 Telephone [facility] [address] [facility] [address] [place] [address] Otilio Woodard MD Results 03/23/2024 Orders Only [facility] [address] [place] [address] Adri Dukes MD 2 scans: (2-Ord) GERARDO FINAL REPORT from Last 3 Months Immunizations [...] Mother Relation Name Status Comments Brother 1 MA Brother 2 stroke Brother 3 Alive Brother 4 Alive Brother 5 Brother 6 Brother 7 Father Maternal Aunt Mother Sister 1 MA Sister 2 Alive Sister 3 Alive Sister [...] Sign Reading Time Taken Comments Blood Pressure 155/82 04/18/2024 1:15 PM CDT Pulse 60 04/18/2024 1:15 PM CDT Temperature 36.7 ??C (98 ??F) 04/18/2024 1:15 PM CDT Respiratory Rate 16 04/18/2024 1:15 PM CDT Oxygen Saturation 99% 04/18/2024 1:15 PM CDT Inhaled Oxygen Concentration - - Weight 62.6 kg (138 lb) 04/18/2024 8:54 AM CDT Height 157.5 cm (5' 2) 04/18/2024 8:54 AM CDT Body Mass Index 25.24 04/18/2024 8:54 AM CDT Plan of Treatment Upcoming Encounters Date Type Department Care Team (Late st Contact Info) Description 04/25/2024 Cardiac Device Check [facility] [phone] 07/04/2024 1:30 PM CDT Cardiac Device Check [facility] [address] [place] [address] Health Maintenance Due Date Last Done Comments [...] Procedure Name Priority Date/Time Associated Diagnosis Comments SCAN CORRESP-LABORATORY RESULTS 04/18/2024 3:29 PM CDT XR CHEST 2 VIEWS PA AND LATERAL STAT 04/18/2024 12:24 PM CDT EP PPM Routine 04/18/2024 10:15 AM CDT EXTENDED HOLTER Routine 04/13/2024 Abnormal computerized tomography of brain XR DXA BONE DENSITY 2 SITES AXIAL Routine 06/29/2013 1:43 PM CDT Osteopenia from Last 3 Months or Most Recently Relevant to Health Maintenance Results * SCAN CORRESP-LABORATORY RESULTS (04/18/2024 3:29 PM CDT) Narrative 04/18/2024 3:29 PM CDT Ordered by an unspecified provider. Other Clinical Staff OTHER * XR CHEST 2 VIEWS PA AND LATERAL (04/18/2024 12:24 PM CDT) Anatomical Region Laterality Modality CHEST, THORAX, Lung, HEART Compu maris Radiography 04/18/2024 12:2 9 PM CDT Impressions 04/18/2024 12:29 PM CDT Intracardiac device appears appropriately positioned. No pneumothorax. Dictated by Martín Miller DO @ Apr 18 2024 12:29PM (Electronically Signed) [email or web address] Narrative 04/18/2024 12:29 PM CDT For Patients: ??As a result of the Cures Act, medical imaging exams and procedure reports are released immediately into your electronic medical record. ??You may view this report before your referring provider. ??If you have questions, please contact your health care provider. INDICATION: Evaluate lead placement. TECHNIQUE: Chest 2 views. COMPARISON: 10/11/2003. FINDINGS: Intracardiac device with leads in the right atrium and right ventricle appear appropriately positioned. No pneumothorax or pleural effusion. Lungs are clear. Aortic atherosclerosis. Cardiomegaly. No pulmonary edema. Upper abdomen as imaged is unremarkable. Surgical clips in the right breast/axillary region. Bone demineralization and degenerative changes. Chronic appearing wedge compression fractures in the midthoracic spine appear unchanged. Procedure Note Martín Miller DO - 04/18/2024 For Patients: As a result of the Cures Act, medical imagingexams and procedure reports are released immediately into your electronicmedical record. You may view this report before your referring provider.If you have questions, please contact your health care provider. INDICATION: Evaluate lead placement. TECHNIQUE: Chest 2 views. COMPARISON: 10/11/2003. FINDINGS: Intracardiac device with leads in the right atrium and right ventricleappear appropriately positioned. No pneumothorax or pleural effusion.Lungs are clear. Aortic atherosclerosis. Cardiomegaly. No pulmonary edema.Upper abdomen as imaged is unremarkable. Surgical clips in the rightbreast/axillary region. Bone demineralization and degenerative changes.Chronic appearing wedge compression fractures in the midthoracic spineappear unchanged. IMPRESSION: Intracardiac device appears appropriately positioned. No pneumothorax. Dictated by Martín Miller DO @ Apr 18 2024 12:29PM (Electronically Signed) [email or web address] Abel Nichols MD GENERAL IMAGING * EP PPM (04/18/2024 10:15 AM CDT) Anatomical Region Laterality Modality Other 04/18/2024 10:1 5 AM CDT Narrative Procedure Note Abel Nichols MD - 04/18/2024 9:30 AM CDT BRIEF PROCEDURE NOTE: Pre-procedural diagnosis: Sinus node dysfunction Procedure: Left-sided dual-chamber permanent pacemaker implantation Post-procedural diagnosis: same Outcome: Successful Complications: none EBL: minimal Plan: - Bedrest for 1 hour, or until back to baseline mental status - Post-procedure CXR and device education have been ordered. Patient arvindin NPO after midnight until the completion of these tests - No changes to outpatient medications upon discharge - Tentative discharge later today; routine f/u with general cardiology Full report to follow in [facility] Brandie Nichols MD Electrophysiology Staff Pager: [phone] 04/18/2024 10:52 AM Transcriptions Abel Nichols MD - 04/18/2024 10:56 AM CDT [facility] [place] Electrophysiology Implant Report Name: BRANDON DEL CASTILLO Event Date: 04/18/2024 [employer] ID #: [id number] Date: 1940 Gender: Female Age: 83 [facility] #: [id number] Procedure Performed By: ABEL NICHOLS [facility] Referring Physician: Primary Care Physician: LEDA MCGRATH Implant Procedure Type Dual Chamber Permanent Pacemaker Implant Summary / Conclusions PACEMAKER * Dual chamber pacemaker system successfully implanted. * Procedure completed without incident. * Appropriate device functionality observed at end of case. Pre-Operative Diagnosis ? Sinus node dysfunction Post-Operative Diagnosis ? Same as Pre-operative diagnosis Indications ? Same as Pre-operative diagnosis Brief Patient History Brandon Del Castillo is an 83 y/o female with a history of sinus nodedysfunction, PVCs and prior CVA '. She has a known history of sinus nodedysfunction with sinus pauses, and has refused a pacemaker in the past.More recently, she has been appreciated to have a higher burden of pauses,lasting up to 7.8 seconds in duration. After discussion regarding furthertreatment options, she now presents for implantation of a dual-chamberpermanent pacemaker for management of her sinus node dysfunction. Consent & [place] Protocol [place] protocol was followed. TIME OUT conducted just prior tostarting procedure confirmed patient identity, site/side, procedure,patient position, and availability of correct equipment and implants (ifapplicable). The risks, benefits, and alternatives of the procedure were discussed withthe patient and written informed consent was obtained. Procedure Description Theandrew Del Castillo presented in sinus rhythm. The left shoulder wasprepped and draped in the usual fashion. The left infraclavicular regionwas anesthetized with local anesthesia. An incision was made below theleft clavicle and a pocket was created anterior to the pre-pectoralfascia. A LUE venogram was performed using 15cc of intravenous contrast(with appropriate pre-medication provided beforehand, given her contrastallergy). The left subclavian vein was cannulated twice over the first riband two guidewires were advanced under fluoroscopy to the level of theIVC. A 7Fr sheath was advanced over the guidewire. An MDT 3830 lead was used. Along pre-formed sheath was advanced into the RV over a Wholey wire. Thepacing lead was then advanced into the RV and fixated into the septumwhere it yielded excellent pacing and sensing values with no diaphragmaticstimulation at maximum output. The long sheath was split and appropriateslack was provided. The lead was sutured to the pre-pectoral fascia withnon-absorbable suture. A 7Fr sheath was advanced over the second guidewire and through thissheath a pacing lead was advanced into the RA and fixated into theappendage where it yielded excellent pacing and sensing values with nodiaphragmatic stimulation at maximum output. The lead was sutured to thepre-pectoral fascia with non-absorbable suture. The pocket was checked for hemostasis and then copiously irrigated withantibiotic solution. A dual chamber pacemaker was attached to the leadsand appropriate dual chamber pacing and sensing were verified. Thedevice/leads were placed into the pocket. The pocket was closed in 3layers with absorbable suture. Dermal adhesive was placed across theincision and a sterile dressing was applied. All counts were correct. Tawanna tolerated the procedure well and no complications were observed. Implantable Device Specifications Pulse Generator Detail Implanted Status Pocket Location Potato Loader Model Serial Number 04/18/2024 Implanted Left Pectoral [employer] [place] XT DR AZAR [id number] Lead Detail Implanted Status Chamber Location Potato Loader Model Serial Number 04/18/2024 Implanted Right Ventricle Septum [employer] Secure [id number] 04/18/2024 Implanted Right Atrium Right Appendage [employer] Novus [id number] Measurement Senior Db2 Systems Programmer P/R Wave (mV) Threshold (V) Pulse Width (msec) Resistance (ohms) High Output Stim Result RA 1.6 1.25 0.4 399 No Stimulation @ 10 V RV 5.5 1 0.4 713 No Stimulation @ 10 V Device Settings Mode Lower Rate (bpm) Upper Rate (bpm) AAIR-DDDR 60 130 MARGARITA Delay: 150 msec PAV Delay: 180 msec Lead Amplitude (V) Pulse Width (msec) Sensitivity (mV) Configuration Atrial 3.5 0.4 0.3 Bipolar RV 3.5 0.4 0.9 Bipolar Features Magnet Use: Enabled Wireless Telemetry: Active Feature Status Detail Mode Switch On 150 Procedure(s) Performed ? New Pacemaker implant, dual chamber ? Subclavian Venogram Procedure Detail Estimated Blood Loss: < 50 ml Specimen Collected: None Level of Sedation Achieved: Moderate Total Fluoro Time: 3.7 ROLL FORMING MACHINE SET UP MECHANIC Total Fluoro Dose: 10 mGy Staff Name Role Abel Nichols Extractor Filler Darío Méndez Anesthesiologist Zeenat Cai SEISMOGRAPH CHIEF Scrub From, Griselda CRISTINA Nurse Richard Busch CVT Monitor Muna Lai Child Psychologist Medications Ordered and Administered Start Time Stop Time Medication Dose Units Route Ordered By Given By The anesthesia service monitored the patient?s conscious sedation duringthe procedure. The medications listed above were verbally ordered by me and read back tome as documented above. Refer to the hemodynamic procedure log report for additional casedetails. electronically signed on 04/18/2024 10:56:31 AM with status of Final Abel Nichols MD Implanting Inspector Floor [facility] [address] [place] [address] (p) [phone](f) Vladislav Johnson MD CV IMAGING * (ABNORMAL) EXTENDED HOLTER (04/13/2024) Adri Dukes MD CARDIAC SERVICES ORD * (ABNORMAL) XR DXA BONE DENSITY 2 SITES (06/29/2013 1:43 PM CDT) Anatomical Region Laterality Modality Spine, HIPS, HIPL, HIPR Other Narrative 06/30/2013 1:05 PM CDT Please see scanned document for results of this study. Procedure Note Chayo Zheng Salvatore - 06/30/2013 Please see scanned document for results of this study. Susan TYLER from Last 3 Months or Most Recently Relevant to Health Maintenance Advance Directives Documents on File Type Date Recorded Patient Director Of Special Services Expl anation Healthcare Directive 12/03/2011 ACP Care Teams Signal Supervisor Relationship Specialty Start Date End Date Leda Mcgrath MD [address] [place] [address] PCP - General Family Practice 06/13/20 Jackelin Morales [address] [place] [address] Internal Medicine 03/01/12
[2024-04-21 15:51] LABS: Basophils Absolute Auto 0.03 K/uL (0.00-0.30); Basophils Percent Auto 0.4 % (0.0-3.0); Eosinophils Absolute Auto 0.05 K/uL (0.00-0.50); Eosinophils Percent Auto 0.7 % (0.0-7.0); Hematocrit 46.4 % (33.0-51.0); Immature Granulocytes Abs Auto 0.01 K/uL (0.00-0.30); Immature Granulocytes Pct Auto 0.1 %; Lymphocytes Absolute Auto 1.99 K/uL (0.90-2.90); Lymphocytes Percent Auto 27.5 % (20-44); Mean Corpuscular HGB Conc 32 gm/dL (32-36); Mean Corpuscular Hemoglobin 31 pg (26-34); Mean Corpuscular Volume 96 fL (80-100); Monocytes Percent Auto 11.5 % (0.0-11.0); Neutrophils Absolute Auto 4.33 K/uL (1.7-7.0); Neutrophils Percent Auto 59.8 % (42.0-72.0); Platelet Count* 164 K/uL (140-440); RDW Coefficient of Variation % 12.6 % (11.5-15.5); Red Blood Count 4.83 m/uL (4.00-5.20); White Blood Count* 7.24 K/uL (4.50-11.00)
[2024-04-21 15:53] LABS: Slide Review Reflex No
[2024-04-21 16:02] LABS: Chloride* 104 mmol/L (96-114)
[2024-04-21 16:03] LABS: Potassium* 3.9 mmol/L (3.6-5.1); Sodium* 138 mmol/L (135-149)
--- NOTE | 2024-04-21 16:04 | ED.ARRPALP ---
HPI - Arrhythmia/Palpitations General Chief Complaint: Arrhythmia/Palpitations Stated Complaint: atrial fibrillation Time Seen by Provider: 04/21/24 14:17 History of Present Illness HPI narrative: This 83-year-old female comes in with her son and daughter because they received a phone call from an weigher and charger stating that she was now in atrial fibrillation. The patient does not feel any symptoms regarding this and denies having any chest pain. She did have a pacer installed 3 days ago. She is not on any anticoagulants. She arrives here with irregular rhythm but rate is controlled. Related Data Home Medications ?Medication ?Instructions ?Recorded ?Confirmed calcium carbonate (Calcium 600) 600 mg PO QDAY 05/08/22 04/20/24 cholecalciferol (vitamin D3) 50 50 mcg PO DAILY 05/08/22 04/20/24 mcg (2,000 unit) tablet omega-3 fatty acids 500 mg capsule 500 mg PO QDAY 05/08/22 04/20/24 Previous Rx's ?Medication ?Instructions ?Recorded polyethylene glycol 3350 17 gram 17 g PO DAILY #30 ea 08/17/22 oral powder packet (Miralax) lancets (Microlet Lancet) #200 ea 02/24/23 amlodipine 5 mg tablet 5 mg PO DAILY #90 tabs 08/06/23 irbesartan 150 mg tablet 150 mg PO DAILY #90 tabs 08/06/23 metformin 500 mg tablet 500 mg PO BIDWM #180 tabs 08/06/23 simvastatin 20 mg tablet 20 mg PO HS #90 tabs 08/06/23 Diabetic Test Strips #300 ea 02/29/24 clopidogrel 75 mg tablet 75 mg PO QDAY #90 tabs 02/29/24 apixaban 5 mg (74 tabs) tablets in See Rx Instructions PO .COMPLEX 04/21/24 a dose pack (Eliquis DVT-PE Treat #74 ea 30D Start) metoprolol succinate 25 mg 12.5 mg (1/2 x 25 mg) PO DAILY #30 04/21/24 tablet,extended release 24 hr tabs Allergies Allergy/AdvReac Type Severity Reaction Status Date / Time aspirin Allergy Severe cant Verified 04/20/24 13:05 breathe, low pulse azithromycin Allergy Severe GI upset, Verified 04/20/24 13:05 vomiting clindamycin Allergy Severe GI upset, Verified 04/20/24 13:05 vomiting methyl salicylate Allergy Severe respiratory Verified 04/20/24 13:05 blue dye Allergy Unknown Verified 04/20/24 13:05 FD and C no.5 (tartrazine) AdvReac Unknown Verified 04/20/24 13:05 Review of Systems Status of ROS: Reports: 10 or more systems reviewed and unremarkable except as noted in History and below Narrative: Constitutional: No fevers, no weight gain or loss. Eyes: No discharge. No vision changes. HENT: No congestion, no sore throat, no ear pain. Cardiovascular: No chest pain, no palpitations. Respiratory: No shortness of breath, no wheezes, no cough. Gastrointestinal: No abdominal pain, no vomiting, no diarrhea. Genitourinary: No dysuria, no hematuria. Musculoskeletal: Normal range of motion. Skin: No rashes, no pruritis. Neurological: No dizziness, weakness, sensory change, speech change. Endo/Heme/Allergies: No bruising or bleeding. No polydipsia. Pysch: no suicidality, no anxiety, no insomnia. All other systems reviewed and are negative. 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) ?I61.8 - Other nontraumatic intracerebral hemorrhage (ICD-10) History of malignant lymphoma (2011) ?Z85.72 - Personal history of non-Hodgkin lymphomas (ICD-10) Hx of fall ?Z91.81 - History of falling (ICD-10) History of CVA (cerebrovascular accident) (03/21/22) ?Z86.73 - Personal history of transient ischemic attack (TIA), and cerebral infarction without residual deficits (ICD-10) Sinus pause (~03/2022) ?I45.5 - Other specified heart block (ICD-10) Ventricular bigeminy (2017) ?I49.8 - Other specified cardiac arrhythmias (ICD-10) Urethral caruncle ?N36.2 - Urethral caruncle (ICD-10) Severe acute respiratory syndrome coronavirus 2 (SARS-CoV-2) vaccination declined ?Z28.21 - Immunization not carried out because of patient refusal (ICD-10) Positive colorectal cancer screening using DNA-based stool test (~2019) ?R19.5 - Other fecal abnormalities (ICD-10) Polyp of colon (06/2020) ?K63.5 - Polyp of colon (ICD-10) Osteopenia (~2013) ?M85.80 - Other specified disorders of bone density and structure, unspecified site (ICD-10) Malignant neoplasm of breast (2008) ?C50.919 - Malignant neoplasm of unspecified site of unspecified female breast (ICD-10) Infection due to severe acute respiratory syndrome coronavirus 2 (SARS-CoV-2) ?U07.1 - COVID-19 (ICD-10) Hyperthyroidism ?E05.90 - Thyrotoxicosis, unspecified without thyrotoxic crisis or storm (ICD-10) Hypertension (2020) ?I10 - Essential (primary) hypertension (ICD-10) History of herpes zoster (06/2018) ?Z86.19 - Personal history of other infectious and parasitic diseases (ICD-10) Cyst of pancreas (01/2022) ?K86.2 - Cyst of pancreas (ICD-10) Colonoscopy refused (2020) ?Z53.20 - Procedure and treatment not carried out because of patient's decision for unspecified reasons (ICD-10) Albuminuria (~2021) ?R80.9 - Proteinuria, unspecified (ICD-10) History of Holter monitoring (03/18/22) ?Z98.890 - Other specified postprocedural states (ICD-10) Surgical History (Updated 04/19/24 @ 11:41 by Leda Anderson MD) S/P placement of cardiac pacemaker (04/18/24) ?Z95.0 - Presence of cardiac pacemaker (ICD-10) History of colonoscopy ?Z98.890 - Other specified postprocedural states (ICD-10) 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, unspecified, unspecified site (ICD-10) History of right mastectomy (2008) ?Z90.11 - Acquired absence of right breast and nipple (ICD-10) History of lumpectomy of right breast (1998) ?Z98.890 - Other specified postprocedural states (ICD-10) Family History Brother Family history of early CAD, Onset Age: 42 Kidney disease Stroke Myocardial infarction, Onset Age: 42 Mother Myocardial infarction, Onset Age: 83 Sister Myocardial infarction, Onset Age: 64 Social History (Updated 08/06/23 @ 12:08 by Leda Anderson MD) Narrative: , 2 adult children, 1 son in car accident, 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 [employer] non-smoker rarely consumes alcohol Exercise by daily walking 30 minutes, also up and down stairs Highest level of school completed/degree received: high school graduate Smoking Status: Never smoker Do you use any of these nicotine containing products: None Second hand tobacco smoke exposure: No How often do you have a drink containing alcohol: never AUDIT-C Alcohol total score: 0 Non-prescribed substance use: denies use Caffeine: Yes (rare) Little interest or pleasure in doing things: not at all Feeling down, depressed, or hopeless: not at all service: No Exam Narrative: Exam Narrative: Constitutional: Well-developed, well-nourished, no acute distress. HEENT: Normocephalic, atraumatic. Neck: Normal range of motion. Nontender. Supple. Heart: Irregular. No murmurs. Normal rate. Intact distal pulses. Lungs: Clear to auscultation. No chest discomfort. No wheezes, rhonchi, or rales. Abdomen: Normal bowel sounds. Nontender. No rebound tenderness. Genitalia: Deferred. Back: No midline tenderness. Normal range of motion. Extremities: Normal range of motion. No injury. Skin: Intact. No rash. Warm. No erythema or pallor. Neurologic: No altered sensation. No weakness. Alert and oriented. Psychiatric: No suicidality. No anxiety or depression. No insomnia. Nursing notes and vitals signs are reviewed. Const: Vital Signs, click to edit/add: Vital Signs - 24 hr 04/21/24 14:10 04/21/24 14:29 04/21/24 14:30 Temperature 98.6 F Pulse Rate 94 85 Pulse Rate [Right Pulse Oximeter] 92 Respiratory Rate 18 Blood Pressure 119/99 H Blood Pressure [Ri ght Upper Arm] 132/83 Pulse Oximetry 98 97 96 Oxygen Delivery Me thod Room Air 04/21/24 14:31 04/21/24 14:45 04/21/24 15:00 Temperature Pulse Rate 87 94 89 Pulse Rate [Right Pulse Oximeter] Respiratory Rate 16 Blood Pressure 122/95 H Blood Pressure [Ri ght Upper Arm] Pulse Oximetry 96 98 93 Oxygen Delivery Me thod 04/21/24 15:02 04/21/24 15:15 04/21/24 15:36 Temperature Pulse Rate 89 84 86 Pulse Rate [Right Pulse Oximeter] Respiratory Rate Blood Pressure 141/97 H Blood Pressure [Ri ght Upper Arm] Pulse Oximetry 98 95 97 Oxygen Delivery Me thod 04/21/24 15:44 04/21/24 15:45 04/21/24 16:00 Temperature Pulse Rate 78 86 81 Pulse Rate [Right Pulse Oximeter] Respiratory Rate Blood Pressure 131/93 H Blood Pressure [Ri ght Upper Arm] Pulse Oximetry 95 99 97 Oxygen Delivery Me thod 04/21/24 16:02 04/21/24 16:07 04/21/24 16:12 Temperature Pulse Rate 90 64 Pulse Rate [Right Pulse Oximeter] Respiratory Rate Blood Pressure 140/101 H 119/70 133/88 Blood Pressure [Ri ght Upper Arm] Pulse Oximetry 96 96 Oxygen Delivery Me thod 04/21/24 16:15 04/21/24 16:22 04/21/24 16:30 Temperature Pulse Rate 72 71 66 Pulse Rate [Right Pulse Oximeter] Respiratory Rate Blood Pressure 138/98 H Blood Pressure [Ri ght Upper Arm] Pulse Oximetry 96 97 96 Oxygen Delivery Me thod 04/21/24 16:32 04/21/24 16:42 04/21/24 16:45 Temperature Pulse Rate 72 63 69 Pulse Rate [Right Pulse Oximeter] Respiratory Rate Blood Pressure 134/95 H 143/104 H Blood Pressure [Ri ght Upper Arm] Pulse Oximetry 96 95 95 Oxygen Delivery Me thod Course Vital Signs Vital signs: Initial Vital Signs Temperature 98.6 F 04/21/24 14:10 Temperature Source Temporal Artery Scan 04/21/24 14:10 Pulse Rate 92 04/21/24 14:10 Pulse Rhythm Regular 04/21/24 14:10 Pulse Strength 3+ Normal 04/21/24 14:10 Respiratory Rate 18 04/21/24 14:10 Blood Pressure 132/83 04/21/24 14:10 Blood Pressure Mean 99 04/21/24 14:10 Blood Pressure Position Sitting 04/21/24 14:10 Pulse Oximetry 98 04/21/24 14:10 Oxygen Delivery Method Room Air 04/21/24 14:10 Vital Signs Temperature 98.6 F 04/21/24 14:10 Pulse Rate 92 04/21/24 14:10 Respiratory Rate 18 04/21/24 14:10 Blood Pressure 132/83 04/21/24 14:10 Pulse Oximetry 98 04/21/24 14:10 Oxygen Delivery Method Room Air 04/21/24 14:10 Temperature 98.6 F 04/21/24 14:10 Pulse Rate 69 04/21/24 16:45 Respiratory Rate 16 04/21/24 14:45 Blood Pressure 143/104 H 04/21/24 16:42 Pulse Oximetry 95 04/21/24 16:45 Oxygen Delivery Method Room Air 04/21/24 14:10 Medications Administered Medications: Discontinued Medications Generic Name Dose Route Start Last Admin Trade Name Laurel PRN Reason Stop Dose Admin Diltiazem HCl 10 mg 04/21/24 15:20 04/21/24 16:06 Diltiazem 5 Mg/Ml Inj IVP 04/21/24 15:21 10 mg ONCE ONE Administration MDM - Arrhythmia/Palpitations MDM Narrative Medical decision making narrative: This patient states that she is feeling well and better than last week and previous because she did have a pacemaker installed. She received a call from the weigher and charger stating that she is now in atrial fibrillation. She was instructed to come in here for possible cardioversion. EKG does show atrial fibrillation and rate is controlled. An IV was established and labs are acquired. The labs returned with reassuring results. In particular her magnesium is in normal range. There are no findings in the labs to explain her new onset atrial fibrillation. She did have a pacemaker installed 3 days ago and this may be contributing to the dysrhythmia. I did discuss synchronized electrocardioversion with the patient and family members and after much discussion she decided to go home and not opt for cardioversion. The patient received an oral dose of Eliquis here in a prescription for the same. She did receive a 10 mg IV dose of diltiazem. This did not bring about a any change in her rate or rhythm. Her blood pressures have been normal. I did provide a prescription for a small dose of metoprolol succinate for some rate control. I advised her to return if worsening symptoms happen. Lab Data Labs: Lab Results 04/21/24 Range/Units 15:40 WBC 7.24 (4.50-11.00) K/uL RBC 4.83 (4.00-5.20) m/uL Hgb 15.0 (12.0-16.0) gm/dL Hct 46.4 (33.0-51.0) % MCV 96 (80-100) fL MCH 31 (26-34) pg MCHC 32 (32-36) gm/dL RDW Coeff of Rosales 12.6 (11.5-15.5) % Plt Count 164 (140-440) K/uL Neut % (Auto) 59.8 (42.0-72.0) % Lymph % (Auto) 27.5 (20-44) % [place] % (Auto) 11.5 H (0.0-11.0) % Eos % (Auto) 0.7 (0.0-7.0) % Baso % (Auto) 0.4 (0.0-3.0) % Neut # (Auto) 4.33 (1.7-7.0) K/uL Lymph # (Auto) 1.99 (0.90-2.90) K/uL [place] # (Auto) 0.80 (0.00-0.90) K/UL Eos # (Auto) 0.05 (0.00-0.50) K/uL Baso # (Auto) 0.03 (0.00-0.30) K/uL Abs Immat Gran (auto) 0.01 (0.00-0.30) K/uL Imm/Tot Granulo (auto) 0.1 % Sodium 138 (135-149) mmol/L Potassium 3.9 (3.6-5.1) mmol/L Chloride 104 (96-114) mmol/L Carbon Dioxide 26 (20-32) mmol/L Anion Gap 8 (7-15) mEq/L BUN 17 (7-30) mg/dL Creatinine 0.6 (0.5-1.5) mg/dL Estimated Creat Clear 32.17 Estimated GFR 89 ml/min Glucose 142 H (60-115) mg/dL Calcium 9.7 (8.4-10.6) mg/dL Magnesium 2.5 (1.5-2.6) mg/dL ECG Data Attestation: I personally reviewed and interpreted this ECG as follows: Interpretation: Atrial fibrillation. Rate is 82 beats per minute. There are no specific ST or T-wave abnormalities. Discharge Plan Discharge Clinical Impression: Atrial fibrillation Patient Disposition: Home w/ Parent or Adult Condition: Stable Additional Instructions: Take medication as prescribed. Follow up with MD for ongoing management. Return if worsening. Prescriptions: New Elimelanie DVT-PE Treat 30D Start 5 mg (74 tabs) tablets,dose pack See Rx Instructions PO .COMPLEX Qty: 74 0RF Rx Instructions: orally per package directions metoprolol succinate 25 mg tablet extended release 24 hr 12.5 mg PO DAILY Qty: 30 2RF No Action cholecalciferol (vitamin D3) 50 mcg (2,000 unit) tablet 50 mcg PO DAILY omega-3 fatty acids 500 mg capsule 500 mg PO QDAY calcium carbonate [Calcium 600] 600 mg calcium (1,500 mg) tablet 600 mg PO QDAY irbesartan 150 mg tablet 150 mg PO DAILY Qty: 90 3RF metformin 500 mg tablet 500 mg PO BIDWM Qty: 180 3RF simvastatin 20 mg tablet 20 mg PO HS Qty: 90 3RF amlodipine 5 mg tablet 5 mg PO DAILY Qty: 90 3RF polyethylene glycol 3350 [Miralax] 17 gram Powder In Packet 17 g PO DAILY Qty: 30 0RF (DME) lancets [Microlet Lancet] Misc See Rx Instructions .Route Qty: 200 3RF Rx Instructions: DX CODE: E11.9 clopidogrel 75 mg tablet 75 mg PO QDAY Qty: 90 3RF (DME) Diabetic Test Strips Misc See Rx Instructions .Route Qty: 300 3RF Rx Instructions: Patient to test BID-TID Follow Up/Referrals: Leda Anderson MD [Primary Care Provider] - Stand Alone Forms: [facility] Info Instructions
[2024-04-21 16:06] LABS: Anion Gap 8 mEq/L (7-15); Blood Urea Nitrogen* 17 mg/dL (7-30); Calcium* 9.7 mg/dL (8.4-10.6); Carbon Dioxide* 26 mmol/L (20-32); Creatinine* 0.6 mg/dL (0.5-1.5); Est. Creatinine Clearance* 32.17; Estimated Glomerular Filt Rate 89 ml/min; Glucose* 142 mg/dL (60-115); Magnesium* 2.5 mg/dL (1.5-2.6)
[2024-04-21] MEDS: dilTIAZem 5 MG/ML inj 10 MG IVP (16:06)
[2024-04-21] MEDS: APIXABAN 5 MG TABLET 10 MG PO (18:36)
[2024-04-27 12:59] LABS: Troponin, Point-of-Care* 0.03 ng/ml (0.01-0.04)
== END 2024-04-21 18:42 | disposition home or self-care (01) ==
PROVIDERS: Emergency Provider Emergency Medicine Emergency Medical Services; PCP Family Medicine
DX: I48.91 Unspecified atrial fibrillation (principal)
CPT/HCPCS: 36415; 80048; 83735; 84484; 85025; 93005; 99284; A9270

== ENCOUNTER 2024-07-14 10:18 | Outpatient (CLI) | payer MEDICARE, BC, SELFPAY ==
--- OUTSIDE RECORDS SUMMARY | 2024-07-18 14:16 | XMS_ITS | Clinical Summary ---
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 06/18/2014 Act jayro calcium/magnesium/ zinc (CALCIUM-MAGNESUIU M-ZINC) 333-133-5 mg tablet Take 1 tablet by [...] meals. 06/17/2022 Active predniSONE (DELTASONE) 20 mg tabletIndications: Contrast media allergy Take 60 mg (3 tablets) the evening before the procedure, and take 60 mg (3 tablets) the morning of the procedure 6 Tablet 04/14/2024 Active acetaminophen (TYLENOL) 325 mg tabletIndications: Pain,S/P placement of cardiac pacemaker Take 2 Tablets (650 mg) by mouth every 4 hours if needed for Pain (For mild pain.). Max acetaminophen dose: 4000mg in 24 hrs. 04/18/2024 Active Eliquis 2.5 mg tablet Take 2.5 mg by mouth two times daily. 04/22/2024 Active apixaban (Eliquis) 5 mg tabletIndications: Atrial fibrillation, unspecified type (HC) Take 1 Tablet (5 mg) by mouth two times daily. 60 Tablet 2 04/25/2024 Active metoprolol tartrate (LOPRESSOR) 25 mg tabletIndications: Atrial fibrillation, unspecified type (HC) Take 1 Tablet (25 mg) by mouth two times daily. 180 Tablet 04/25/2024 Active Active Problems Problem Noted Date Diagnosed Date Adenomatous polyp of sigmoid colon 07/23/2020 Overview (07/23/2020): Colonoscopy 06/2020 large polyp, repeat in 6 months PVC (premature ventricular contraction) 03/11/20 17 Impaired fasting glucose 11/23/2012 ACP (advance care planning) 10/08/2011 Overview (10/08/2011): Patient has identified Health Care Agent(s): Yes [...] treatment preferences NOT identified: ASSUME FULL TREATMENT. Assessment & Plan (10/08/2011 5:17 PM PROGRAM PROJECT MANAGER): Advance Care Planning: Basic Interview Session Advance Care Planning discussion completed with Theologia Tpoher Del Castillo and her Health Care Agent and son, Jaison Del Castillo on 10/08/2011 at [facility]. Patient and family provided with: Advance Care Planning Discussion Guide, a second copy of a Health Care Directive and booklet, Hard Choices for [place] People, for their review. Goals and Values: Patient/family identified factors that may influence treatment preferences: ?? Personal values and goals: Very strong uatsdin beliefs and need to allow God's will,God [...] family as needs arises. 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 Was unable to define a timeline for [...] to identify her health care agents. Recommendations/Plan: Theologia was encouraged to continue advance care planning discussions, complete a health care directive and schedule a return appointment with log roper to review her advance care plan. Theologia and her health care agent to review Health Care Directive with her provider at the next office visit. Interviewer: Adri Sepulveda RN 10/08/2011 Vitamin D deficiency 03/15/2009 Exostosis of unspecified site 02/01/2007 Personal history of malignant neoplasm of breast 11/17/2006 Overview (11/17/2006): right breast cancer ductal in situ . Pt had lumpectomy Osteoporosis, unspecified 11/17/2006 Premature menopause 11/17/2006 Calculus of kidney 11/17/2006 Overview (11/17/2006): 1993 Follicular lymphoma Overview (09/03/2011): skin biopsy Encounters Date Type Department Care Team Description 07/04/2024 Travel 06/01/2024 11:00 AM CDT Office Visit [facility] [address] [place] [address] Cristian Pope MD 04/24/2024 Telephone [facility] [address] [place] [address] Abel Nichols MD DC med discrepancies 04/21/2024 Telephone [facility] [address] [place] [address] Izzy Vargas, RN Device Check 04/20/2024 1:00 PM CDT Office Visit [facility] [address] [place] [address] Otilio Woodard MD CV General Cardiology Est 04/18/2024 11:20 AM CDT Ancillary Procedure [facility] [address] [place] [address] 04/18/2024 8:23 AM CDT - 04/18/2024 11:59 PM CDT Hospital Encounter [facility] [address] [place] [address] Abel Nichols MD Pain (Primary Dx); S/P placement of cardiac pacemaker 04/18/2024 Travel 04/17/2024 Telephone [facility] [address] [place] [phone] Abel Nichols MD Results 04/17/2024 Telephone [facility] [address] [facility] [address] [place] [address] Ifrah Adhikari RN pre/post phone call from Last 3 Months Immunizations Name Administration Dates Next Due AMB Influenza, IIV3 (Age >=3 years)(Flu Clinic Only) 06/15/2013,07/06/2012,07/17/2008 Influenza RIV4 (Age 18+ Year s) PRESERV FREE 08/02/2019 Influenza, CCIIV3 (Age >=6 MO) 07/05/2014 Influenza, High-dose Inactivated 018,06/25/2017,07/07/2016,2014 Influenza, High-dose Quadriv alent Inactivated 07/29/2021 Influenza, IIV3 (Age >=3 years) 06/05/20 11,07/09/2010,06/14/2009,2006,08/11/2006 Pneumococcal Poly,23-Valent (Pneumovax) 01/25/2007 Pneumococcal conj 13-Valent (Prevnar 13) 03/09/2016 Tdap 03/09/2016,03/04/2006 Family History Medical History Relation Name Comments Heart Disease Brother 5 Hypertension Brother 6 Stroke Brother 7 Cancer Father lymphoma? Cancer-breast Maternal Aunt Hypertension Mother Relation Name Status Comments Brother 1 NC Brother 2 stroke Brother 3 Alive Brother 4 Alive Brother 5 Brother 6 Brother 7 Father Maternal Aunt Mother Sister 1 NC Sister 2 Alive Sister 3 Alive Sister [...] Care Team (Late st Contact Info) Description 11/03/2024 [facility]iac Device [phone] Health Maintenance Due Date Last Done Comments COVID-19 vaccine series (#1) 1945 Depression screening for age 12+ 1952 Zoster (shingles) series for age 50+ (1 of 2) 11/27/1959 Medicare Wellness for age 65+ 06/27/2014, 03/01/2012, 02/17/2011 RSV vaccine for adults or (1 - 1-dose 75+ series) 11/27/2015 BMI (ht and wt on same day) [...] Procedure Name Priority Date/Time Associated Diagnosis Comments PACER NURIS DUAL CHAMBER WO REPROG Routine 07/04/2024 2:59 PM CDT Fitting or adjustment of cardiac pacemaker PACER NURIS DUAL CHAMBER WO REPROG Routine 05/30/2024 2:58 PM CDT Fitting or adjustment of cardiac pacemaker SCAN CORRESP-LABORATORY RESULTS 04/18/2024 3:29 PM CDT XR CHEST 2 VIEWS PA AND LATERAL STAT 04/18/2024 12:24 PM CDT EP PPM Routine 04/18/2024 10:15 AM CDT XR DXA BONE DENSITY 2 SITES AXIAL [...] @ Apr 18 2024 12:29PM (Electronically Signed) [email or web address] Narrative 04/18/2024 12:29 PM CDT For Patients: ??As a result of the Century Cures Act, medical imaging exams and procedure [...] @ Apr 18 2024 12:29PM (Electronically Signed) [email or web address] Abel Nichols MD GENERAL IMAGING * EP [...] and device education have been ordered. Patient toremain NPO after midnight until the completion of these tests - No changes to outpatient medications upon discharge - Tentative discharge later today; routine f/u with general cardiology Full report to follow in [facility] Brandie Nichols MD Electrophysiology Staff Pager: [phone] 04/18/2024 10:52 AM Transcriptions Abel Nichols MD - 04/18/2024 10:56 AM CDT [facility] at [facility] Electrophysiology Implant Report Name: BRANDON DEL CASTILLO Event Date: 04/18/2024 [facility] ID #: [id number] Date: 1940 Gender: Female Age: 83 [facility] #: [id number] Procedure Performed By: ABEL NICHOLS [facility] Referring Physician: Primary Care Physician: LEDA MCGRATH [...] of her sinus node dysfunction. Consent & [place] Protocol [place] protocol was followed. TIME OUT conducted just prior tostarting procedure confirmed patient identity, site/side, procedure,patient position, and availability of correct equipment and implants (ifapplicable). The risks, benefits, and alternatives of the procedure were discussed withthe patient and written informed consent was obtained. Procedure Description Brandon Del Castillo presented in sinus rhythm. The [...] dressing was applied. All counts were correct. MsPitsavas tolerated the procedure well and no complications were observed. Implantable Device Specifications Pulse Generator Detail Implanted Status Pocket Location Drilling Field Specialist Model Serial Number 04/18/2024 Implanted Left Pectoral [employer] Amee XT MRI [id number] Lead Detail Implanted Status Chamber Location Drilling Field Specialist Model Serial Number 04/18/2024 Implanted Right Ventricle Septum [employer] Secure [id number] 04/18/2024 Implanted Right Atrium Right Appendage [employer]CapSureFix Novus [id number] Measurement Supervisor Special Education P/R Wave (mV) Threshold (V) Pulse Width [...] Sedation Achieved: Moderate Total Fluoro Time: 3.7 BROKER Total Fluoro Dose: 10 mGy Staff Name Role Abel Nichols Informatics Physician Liaison Darío Méndez Anesthesiologist Zeenat Cai CHISEL GRINDER Scrub From, Griselda CRISTINA Nurse Richard Busch CVT Monitor Muna Lai Fund Director Medications Ordered and Administered Start Time Stop [...] status of Final Abel Nichols MD Implanting Knife Setter Assembler [facility] [address] [facility] [address] [place] [address] (p) [phone](f) Vladislav Johnson MD CV IMAGING * (ABNORMAL) XR DXA BONE DENSITY 2 [...] on File Type Date Recorded Patient Director [employer] Healthcare Directive 12/03/2011 ACP Care Teams Fishing Boat Captain Relationship Specialty Start Date End Date Leda Mcgrath MD [address] [place] [address] PCP - General Family Practice 06/13/20 Jackelin Morales [address] [place] [phone] Internal Medicine 03/01/12
== END 2024-07-14 10:19 | disposition home or self-care (01) ==
LOC: NFLDREF 07-18 14:13
PROVIDERS: PCP Family Medicine; Referring Provider Family Medicine; Visit Provider Family Medicine
DX: I10 Essential (primary) hypertension (principal); E78.5 Hyperlipidemia, unspecified; E11.9 Type 2 diabetes mellitus without complications; M81.0 Age-related osteoporosis without current pathological fracture; E55.9 Vitamin D deficiency, unspecified; Z13.21 Encounter for screening for nutritional disorder
CPT/HCPCS: 80053; 80061; 82306; 82607

== ENCOUNTER 2024-07-18 14:22 | Outpatient (CLI) | payer MEDICARE, BC, SELFPAY | END 2024-07-18 14:23 | disposition home or self-care (01) | LOC: NFLDREF 14:24 | PROVIDERS: PCP Family Medicine; Visit Provider Family Medicine | DX: I10 Essential (primary) hypertension (principal); E11.9 Type 2 diabetes mellitus without complications; E55.9 Vitamin D deficiency, unspecified; R80.9 Proteinuria, unspecified; E11.29 Type 2 diabetes mellitus with other diabetic kidney complication; Z79.899 Other long term (current) drug therapy; Z85.72 Personal history of non-Hodgkin lymphomas | CPT/HCPCS: 82043; 82570 ==

== ENCOUNTER 2025-01-15 09:33 | Outpatient (CLI) | payer MEDICARE, BC, SELFPAY | END 2025-01-15 09:34 | disposition home or self-care (01) | LOC: NFLDREF 01-17 03:06 | PROVIDERS: PCP Family Medicine; Referring Provider Family Medicine; Visit Provider Family Medicine | DX: E11.29 Type 2 diabetes mellitus with other diabetic kidney complication (principal); R80.9 Proteinuria, unspecified; I10 Essential (primary) hypertension; Z79.84 Long term (current) use of oral hypoglycemic drugs | CPT/HCPCS: 80053; 82043; 82570 ==

== ENCOUNTER 2025-02-05 13:15 | Outpatient (CLI) | payer MEDICARE, BC, SELFPAY | END 2025-02-05 13:16 | disposition home or self-care (01) | LOC: NFLDREF 02-13 23:03 | PROVIDERS: PCP Family Medicine; Referring Provider Family Medicine; Visit Provider Nurse Practitioner Family | DX: R31.9 Hematuria, unspecified (principal) | CPT/HCPCS: 87086 ==

== ENCOUNTER 2025-02-16 09:00 | Outpatient (CLI) | payer MEDICARE, BC, SELFPAY | END 2025-02-16 09:01 | disposition home or self-care (01) | LOC: RAD 02-21 13:13 | PROVIDERS: PCP Family Medicine; Visit Provider Family Medicine | DX: I34.0 Nonrheumatic mitral (valve) insufficiency (principal); I07.1 Rheumatic tricuspid insufficiency; I31.39 Other pericardial effusion (noninflammatory) | CPT/HCPCS: 93306 ==

== ENCOUNTER 2025-03-07 08:25 | Outpatient (CLI) | payer MEDICARE, BC, SELFPAY ==
--- NOTE | 2025-03-07 08:45 | CRLHL7_ITS ---
For Patients: As a result of the Century Cures Act, medical imaging exams and procedure reports are released immediately into your electronic medical record. You may view this report before your referring provider. If you have questions, please contact your health care provider. INDICATION: UNILATERAL LEFT BREAST SCREENING MAMMOGRAM, ASYMPTOMATIC 84 Y/O FEMALE COMPARISON: 02/25/2024, 01/26/2023, 02/18/2022 TECHNIQUE: Digital mammogram in CC and MLO projections including computer-aided detection (CAD) and tomosynthesis. BREAST COMPOSITION: There are scattered areas of fibroglandular density. FINDINGS: No suspicious findings. ASSESSMENT: BI-RADS 1 Negative RECOMMENDATION: Annual screening mammogram. A lay language report of this examination will be provided to the patient. Dictated by: Darío Payton MD @ 03/07/2025 09:08:16 (Electronically Signed)
== END 2025-03-07 08:26 | disposition home or self-care (01) ==
LOC: MAMMO 08:28
PROVIDERS: PCP Family Medicine; Visit Provider Family Medicine
DX: Z12.31 Encounter for screening mammogram for malignant neoplasm of breast (principal)
CPT/HCPCS: 77063; 77067